=== PATIENT | male | born 1950 | race Caucasian/White ===

== ENCOUNTER 2019-03-24 09:53 | Outpatient (CLI) | payer MEDICARE, SELFPAY ==
--- NOTE | 2019-03-24 14:59 | HP ---
HISTORY OF PRESENT ILLNESS: Mr. Gavino Carroll is a very pleasant 69-year-old gentleman, who presents to the [facility]ound Center for evaluation of an ulceration of the plantar surface of the left midfoot. The patient states that the wound began in July of this year as a "slit." He states that he "pulled skin off" resulting in a deepening of the wound. The patient states that the wound subsequently began draining and enlarging in a progressive fashion. The patient states that treatment for the ulceration of the plantar surface of the left midfoot has included Epsom salt soaks cleaning with alcohol, Neosporin, and triple antibiotic ointment. The patient states that he has been covering the ulceration with a large Band-Aid followed by his sock. The patient was referred to the Wound Center by Chhaya Macedo PA-C on 03/17/2019. The patient's medical history significant for Charcot arthropathy for the past 15 years. PAST MEDICAL HISTORY: 1. Diabetes mellitus. 2. Hypertension. 3. Coronary artery disease. 4. Charcot arthropathy. PAST SURGICAL HISTORY: Negative. MEDICATIONS: 1. Glipizide. 2. Metformin. 3. Furosemide. 4. Atenolol. 5. Lovastatin. 6. Aspirin. ALLERGIES: NO KNOWN DIAGNOSED ALLERGIES. SOCIAL HISTORY: Social history is significant for tobacco use of 1/2 pack of cigarettes per day for 20 years. The patient states that he stopped smoking at age 45. The patient admits to the consumption up to 6 drinks per day since age 20. FAMILY HISTORY: Family history is significant for diabetes mellitus. The patient states that his mother and brother were both diagnosed with diabetes mellitus. Family history is also significant for coronary artery disease. The patient states that his father and brother were both diagnosed with coronary artery disease. REVIEW OF SYSTEMS: The patient states that he has been seen by his primary care provider for approximately 2-1/2 months for his left midfoot plantar ulceration. PHYSICAL EXAMINATION: VITAL SIGNS: Temperature 97.6, pulse 62, respirations 20, and blood pressure 182/90. Accu-Chek 127. GENERAL: A 69-year-old gentleman, lying on stretcher in examination room, in no acute distress. HEENT: Normocephalic and atraumatic. NECK: No nuchal rigidity. CHEST: Clear to auscultation. CV: Regular rate and rhythm. ABDOMEN: Soft. EXTREMITIES: An ulceration of the plantar surface of the left midfoot is present, which measures approximately 2.4 x 2.8 cm. Granulation tissue is present within the wound margins. Necrotic and nonviable tissue present within the wound margins was debrided with an excisional full-thickness debridement. Callus desiccated tissue and undermining at the periphery of the wound were eliminated with the use of scissors. No purulent drainage is associated with the wound. No erythema of the skin surrounding the wound is present. No maceration of the skin of the periwound is noted. A dorsalis pedis pulse is palpable on the left. NEUROLOGIC: Grossly nonfocal. ASSESSMENT AND PLAN: 1. 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 Dressing changes of Medihoney alginate will be initiated today. These dressing changes are to be performed on a daily basis after cleansing and irrigation. Arrangements will be made for the home delivery of dressing supplies. No antibiotics will be prescribed today based upon the appearance of the wound. I will see Mr. Carroll again in 1 to 2 weeks. The patient understands and is in agreement with the preceding treatment plan. 2. Diabetes mellitus. The patient's Accu-Chek in clinic today is 127. The patient has been told that for optimal wound healing, his blood glucoses should remain below 150. 3. Hypertension. 4. Coronary artery disease. Job ID: [id number]
== END 2019-03-24 09:54 | disposition home or self-care (01) ==
LOC: WCC 09:53
PROVIDERS: ATTEND Family Medicine
DX: E11.621 Type 2 diabetes mellitus with foot ulcer (principal); L97.429 Non-pressure chronic ulcer of left heel and midfoot with unspecified severity; I10 Essential (primary) hypertension; I25.10 Atherosclerotic heart disease of native coronary artery without angina pectoris; E11.40 Type 2 diabetes mellitus with diabetic neuropathy, unspecified

== ENCOUNTER 2019-04-07 14:17 | Outpatient (CLI) | payer MEDICARE ==
--- NOTE | 2019-04-07 10:16 | PRG ---
DATE OF SERVICE: 04/07/2019 HISTORY: Mr. Gavino Carroll is a very pleasant 69-year-old gentleman who presents to the Wound Center for evaluation of an ulceration of the plantar surface of the left midfoot. The patient previously stated that the wound began in July of this year as a "slit." He stated that he "pulled skin off" resulting in a deepening of the wound. He stated that the wound subsequently began draining and enlarging in a progressive fashion. The patient stated that treatment for the ulceration of the plantar surface of the left midfoot has included Epsom salt soaks, cleansing with alcohol, Neosporin, and triple antibiotic ointment. The patient stated that he prior to being seen in the Wound Center had been covering the ulceration with a large Band-Aid followed by his sock. The patient was referred to the Wound Center by Chhaya Macedo PA-C on 03/17/2019. The patient's medical history is significant for Charcot arthropathy for the past 15 years. PHYSICAL EXAMINATION: VITAL SIGNS: Temperature 97.6, pulse 51, respirations 20, blood pressure 185/77. Accu-Chek 143. EXTREMITIES: An ulceration of the plantar surface of the left mid foot is present, which measures approximately 2.8 x 2.1 cm. The dimensions of the wound at the time of the patient's last visit were approximately 2.4 x 2.8 cm. Granulation tissue is present within the wound margins. Necrotic and nonviable tissue present within the wound margins was debrided with an excisional full-thickness debridement with the use of a curette. Callus desiccated tissue and undermining at the periphery of the wound were eliminated with the use of scissors. Post debridement measurements were approximately 2.7 x 3.2 cm. No purulent drainage is associated with the wound. No erythema of the skin surrounding the wound is present. No maceration of the skin of the periwound is noted. A dorsalis pedis pulse is palpable on the left. ASSESSMENT AND PLAN: 1. 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 Dressing changes of Medihoney alginate will be continued on a daily basis after cleansing and irrigation. Arrangements were previously made for the home delivery of dressing supplies. I will see Mr. Carroll again in 2 weeks. The importance of offloading and achieving the healing of the ulceration has again been discussed with Mr. Carroll. 2. Diabetes mellitus. The patient's Accu-Chek in clinic today is 143. The patient has been reminded that for optimal wound healing, his blood glucoses should remain below 150. 3. Hypertension. 4. Coronary artery disease. Job ID: [id number]
[2019-04-07] MEDS ORDERED: Sodium Chloride 0.9% 15 ML NEB ONE (18:21)
== END 2019-04-07 14:18 | disposition home or self-care (01) ==
LOC: WCC 14:17
PROVIDERS: ATTEND Family Medicine
DX: E11.621 Type 2 diabetes mellitus with foot ulcer (principal); E11.40 Type 2 diabetes mellitus with diabetic neuropathy, unspecified; L97.429 Non-pressure chronic ulcer of left heel and midfoot with unspecified severity; I10 Essential (primary) hypertension; I25.10 Atherosclerotic heart disease of native coronary artery without angina pectoris
CPT/HCPCS: 11042; A4218

== ENCOUNTER 2019-04-23 08:42 | Outpatient (CLI) | payer MEDICARE ==
[2019-04-23] MEDS ORDERED: Sodium Chloride 0.9% 15 ML NEB ONE (09:00)
[2019-04-23] MEDS ORDERED: Lidocaine 2% PF 100 mg/5 ml Syringe ONE (09:00)
--- NOTE | 2019-04-23 09:51 | PRG ---
DATE OF SERVICE: 04/23/2019 HISTORY: Mr. Gavino Carroll is a very pleasant 69-year-old gentleman, who presents to the Wound Center for evaluation of an ulceration of the plantar surface of the left midfoot. The patient previously stated that the wound began in July of this year as a "slit." He stated that he "pulled skin off" resulting in a deepening of the wound. He stated that the wound subsequently began draining and enlarging in a progressive fashion. The patient stated that treatment for the ulceration of the plantar surface of the left midfoot has included Epsom salt soaks, cleansing with alcohol, Neosporin, and triple antibiotic ointment. The patient stated that prior to being seen in the Wound Center, he had been covering the ulceration with a large Band-Aid followed by his sock. The patient was referred to the Wound Center by Chhaya Macedo PA-C, on 03/17/2019. The patient's medical history significant for Charcot arthropathy for the past 15 years. PHYSICAL EXAMINATION: VITAL SIGNS: Temperature 97.5, pulse 52, respirations 19, and blood pressure 205/86. Accu-Chek 102. EXTREMITIES: An ulceration of the plantar surface of the left midfoot is present, which measures approximately 3.0 x 2.0 cm. The dimensions of the wound at the time of the patient's last visit were approximately 2.8 x 2.1 cm. A sample of granulation tissue within the wound margins was excised with the use of scissors and sent for aerobic and anaerobic cultures. Necrotic and nonviable tissue present within the wound margins was debrided with an excisional full-thickness debridement with the use of scissors. Callus desiccated tissue and undermining at the periphery of the wound were also eliminated with the use of scissors. No purulent drainage is associated with the wound. Slight erythema of the skin surrounding the wound is present. No maceration of the skin of the periwound is noted. No significant edema of the left foot is appreciated on exam today. ASSESSMENT AND PLAN: 1. 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 Dressing changes of Medihoney are to be performed on a daily basis after cleansing and irrigation. I will see Mr. Carroll again in 1 week. The importance of offloading in achieving the healing of the ulceration has again been discussed with Mr. Carroll. He states he will begin utilizing a knee scooter. Arrangements will also be made for the initiation of negative pressure therapy with dressing changes of the wound VAC 3 times per week with the assistance of Home Health. At the time of the patient's followup visit in 1 week, consideration will be given to treatment with a skin substitute. Antibiotic therapy will also be initiated if warranted based upon the results of the tissue cultures obtained today, imaging of the left foot will also be obtained to look for findings suggestive of osteomyelitis. 2. Diabetes mellitus. The patient's Accu-Chek in clinic today is 102. The patient has been reminded that for optimal wound healing his blood glucoses should remain below 150. 3. Hypertension. 4. Coronary artery disease. Job ID: [id number]
== END 2019-04-23 08:43 | disposition home or self-care (01) ==
LOC: WCC 08:42
PROVIDERS: ATTEND Family Medicine
DX: E11.621 Type 2 diabetes mellitus with foot ulcer (principal); L97.429 Non-pressure chronic ulcer of left heel and midfoot with unspecified severity; I25.10 Atherosclerotic heart disease of native coronary artery without angina pectoris; I10 Essential (primary) hypertension
CPT/HCPCS: 11042; 87070; 87077; 87186; 87205; 93923

== ENCOUNTER 2019-04-29 12:12 | Outpatient (CLI) | payer MEDICARE ==
--- NOTE | 2019-04-29 16:08 | MRI ---
MR OF THE LEFT FOOT WITHOUT CONTRAST: 04/29/19 INDICATION: Type II diabetes with neuropathy and a large plantar based ulceration. FINDINGS: There is a large plantar based ulceration underlying the midfoot measuring approximately 5.2 x 3.6 cm in its greatest AP and mediolateral dimensions respectively. This ulceration does contact the planta r surface of the cuboid where there is cortical osteolysis and abnormal marrow signal intensity invol ving the cuboid consistent with changes of osteomyelitis. There is neuropathic osteoarthropathy invol ving the midfoot with prominent destructive changes involving the joint. There is fragmentation invol ving the medial and lateral cuneiform likely related to infection. There is abnormal marrow signal i ntensity involving portions of the inferior displaced lateral and middle cuneiforms. There is diffuse muscle atrophy and abnormal increased T2 signal involving the intrinsic musculature likely related t o denervation. No large drainage fluid collection is evident. IMPRESSION: 1. Large plantar based ulceration underlying the midfoot with osteomyelitis involving the cuboid , lateral and middle cuneiforms. 2. 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 3. Prominent denervation changes involving the intrinsic foot musculature. POS: TPC
== END 2019-04-29 12:13 | disposition home or self-care (01) ==
LOC: BICMRI 12:12
PROVIDERS: ATTEND Family Medicine
DX: E11.621 Type 2 diabetes mellitus with foot ulcer (principal); E11.69 Type 2 diabetes mellitus with other specified complication; L97.529 Non-pressure chronic ulcer of other part of left foot with unspecified severity; M86.8X7 Other osteomyelitis, ankle and foot

== ENCOUNTER 2019-05-01 19:34 | Inpatient (IN) | payer MEDICARE ==
[~2019-05-01 19:34] MED LIST: Heparin 1,000 UNITS/ML VIAL ONE
[2019-05-01 20:20] LABS: #Basophils 0.1 thou/uL (0.0-0.2); #Eosinphils 0.3 thou/uL (0.0-0.7); #Lymphocytes 2.6 thou/uL (1.20-3.40); #Neutrophils 11.1 thou/uL (1.40-6.50); %Basophils 0.6 % (0.0-1.0); %Monocytes 6.8 % (0.0-10.0); %Neutrophils 73.6 % (42.0-75.0); Mean Corpuscular HGB CONC 33.7 g/dL (32.0-36.0); Mean Corpuscular Hemoglobin 29.1 pg (27.0-31.0); Mean Corpuscular Volume 86.3 fL (78.0-98.0); Mean Platelet Volume 7.9 fL (7.4-10.4); Platelet Count 290 thou/uL (130-400); RBC Distribution Width 13.4 % (11.5-14.5); Red Blood Cell (RBC) Count 4.82 mill/uL (4.70-6.10); White Blood Cell (WBC) Count 15.1 thou/uL (4.8-10.8)
[2019-05-01 20:40] LABS: ALT (SGPT) 13 U/L (8-55); AST (SGOT) 23 U/L (5-34); Albumin 4.1 g/dL (3.4-4.8); Alkaline Phosphatase 75 U/L (40-110); Anion Gap 15 mmol/L (10-20); BUN (Urea Nitrogen) 23 mg/dL (8.4-25.7); Bilirubin, Total 0.5 mg/dL (0.2-1.2); Calc. Creatinine Clearance 0 mL/min (70-130); Calcium 9.9 mg/dL (7.8-10.44); Carbon Dioxide 23 mmol/L (23-31); Chloride 99 mmol/L (98-107); Estimated GFR-MDRD 70; Globulin 4.2 g/dL (2.4-3.5); Glucose 139 mg/dL (80-115); Potassium 5.2 mmol/L (3.5-5.1); Protein, Total 8.3 g/dL (5.8-8.1); Sodium 132 mmol/L (136-145)
[2019-05-01] MEDS ORDERED: Piperacillin/Tazobactam 3.375 GM VIAL ONE (20:52)
[2019-05-01 21:37] LABS: Hemoglobin A1c 7.4 % (4.0-6.0)
[2019-05-01] MEDS ORDERED: Acetaminophen 325 MG TAB PO PRN (22:24)
[2019-05-01] MEDS ORDERED: Dextrose 50% Abboject 50 ML SYRINGE SLOW IVP PRN (22:24)
[2019-05-01] MEDS ORDERED: Senokot S 8.6-50 MG TAB PO PRN (22:24)
[2019-05-01] MEDS ORDERED: Dextrose 5% in Water 1,000 ML IV PRN (22:24)
[2019-05-01] MEDS ORDERED: Calcium Carbonate 500 MG ChewTAB PO PRN (22:24)
[2019-05-01] MEDS ORDERED: Vancomycin HCl 1 GM in Premix Bag 1 BAG IVPB SCH ×2 (22:30→23:15)
--- NOTE | 2019-05-01 23:06 | HP ---
PRIMARY CARE: [facility]. CHIEF COMPLAINT: Patient was sent from the wound Care due to abnormal MRI. HISTORY OF PRESENT ILLNESS: The patient is a 69-year-old male with diabetes mellitus type 2, hypertension and coronary artery disease who was referred from Wound Care Clinic due to abnormal MRI. He has left lower extremity plantar wound that has been ongoing for last 6-8 months. It is progressively gotten worse getting. He was recently evaluated by Dr. Morrow. He had a lower extremity MRI 2 days ago that was consistent with osteomyelitis involving the cuboid, lateral and middle cuneiform. He denies any fever, chills, pain, or generalized weakness. PAST MEDICAL HISTORY: 1. Diabetes mellitus type 2. 2. Hypertension. 3. Hyperlipidemia. 4. Coronary artery disease, status post [place] requiring angioplasty in 1995. PAST SURGICAL HISTORY: Cardiac catheterization. ALLERGIES: NO KNOWN DRUG ALLERGIES. CURRENT HOME MEDICATION: 1. Aspirin 325 mg daily. 2. Metformin 500 mg b.i.d. 3. Glipizide 5 mg b.i.d. 4. Lovastatin 40 mg at bedtime. 5. Lasix 20 mg daily. 6. Atenolol/chlorthalidone 1 tab daily. SOCIAL HISTORY: The patient currently lives at home. He drinks alcohol socially. Denies any smoking or drug use. He is full code. Makes his own decision with the help of his family. His recently . FAMILY HISTORY: Negative for premature coronary artery disease. REVIEW OF SYSTEMS: All other review of systems were reviewed and were found negative. PHYSICAL EXAMINATION: VITAL SIGNS: Temperature 98, respiration of 16, pulse of 56, blood pressure of 140/71 with O2 saturation 96% on room air. GENERAL: A 69-year-old male in no apparent distress. HEENT: Head, atraumatic and normocephalic. Sclerae anicteric. Moist mucous membranes. No oral lesion. NECK: Supple. No JVD appreciated. No carotid bruit. LUNGS: Clear to auscultation bilaterally. No wheezing, rales, or rhonchi. HEART: S1 and S2 present. Regular rate and rhythm. Bradycardic. No rubs or gallops. ABDOMEN: Soft, nontender. Bowel sounds present. EXTREMITIES: There is approximately 4 x 6 cm and 1 inch in depth without any drainage or necrosis. There is diminished sensation without any pain or drainage. NEUROLOGIC: Grossly nonfocal. Moves all 4 extremities. PSYCHIATRY: Alert, awake and oriented x3. SKIN: As discussed above. LYMPH NODES: No palpable lymph nodes in the neck. EXTREMITIES: Peripheral vascular, radial pulses palpable bilaterally. Dorsalis pedis pulses were palpable on the left. LABORATORY FINDINGS: MRI of the left foot by my review as discussed above. WBC 15.1 with hemoglobin 14, hematocrit 41.6 with a platelet of 290. Chemistry showed sodium of 132, potassium 5.2, chloride 99, bicarb 23, BUN 23, creatinine 1.05, glucose of 139. Hemoglobin A1c 7.4. CRP 2.03. IMAGING: EKG by my review showed sinus bradycardia with first-degree AV block with a heart rate of 56 with left axis deviation. IMPRESSION: 1. Left foot diabetic infection with osteomyelitis. 2. Diabetes mellitus type 2 with diabetic neuropathy. 3. Charcot deformity in the left foot. 4. Coronary artery disease status post myocardial infarction with no recent cardiac followup. 5. Hypertension. 6. Chronic kidney disease, stage 2. 7. Hyponatremia. 8. Sinus bradycardia, probably secondary to beta blockers. PLAN: The patient will be monitored on the medical floor. We will continue empiric antibiotics. We will consult General Surgery as well as Infectious Disease. We will reduce atenolol dosing. We will hold metformin for now. We will keep him n.p.o. past midnight. Gentle IV hydration. Insulin sliding scale. Consult Wound Care. Plan of care was discussed with the patient and the family in detail, they stated understanding. Job ID: [id number]
[2019-05-01] MEDS: Sodium Chloride 0.9% 1,000 ML IV SCH (23:09)
[2019-05-02] MEDS: Piperacillin/Tazobactam 3.375 GM in Sodium Chloride 0.9% 100 ML IVPB SCH ×4 (02:35→20:51)
[2019-05-02 05:41] LABS: #Basophils 0.1 thou/uL (0.0-0.2); #Eosinphils 0.3 thou/uL (0.0-0.7); #Lymphocytes 1.7 thou/uL (1.20-3.40); #Monocytes 0.9 thou/uL (0.11-0.59); #Neutrophils 9.1 thou/uL (1.40-6.50); %Basophils 0.7 % (0.0-1.0); %Eosinophils 2.7 % (0.0-10.0); %Monocytes 7.7 % (0.0-10.0); %Neutrophils 74.9 % (42.0-75.0); Hemoglobin 13.5 g/dL (14.0-18.0); Mean Corpuscular HGB CONC 33.7 g/dL (32.0-36.0); Mean Corpuscular Volume 86.1 fL (78.0-98.0); Mean Platelet Volume 7.7 fL (7.4-10.4); Platelet Count 258 thou/uL (130-400); RBC Distribution Width 13.3 % (11.5-14.5); Red Blood Cell (RBC) Count 4.64 mill/uL (4.70-6.10); White Blood Cell (WBC) Count 12.2 thou/uL (4.8-10.8)
[2019-05-02 05:48] LABS: Prothrombin Time 13.3 SEC (12.0-14.7)
[2019-05-02 06:13] LABS: ALT (SGPT) 13 U/L (8-55); AST (SGOT) 10 U/L (5-34); Albumin 3.6 g/dL (3.4-4.8); Alkaline Phosphatase 68 U/L (40-110); Anion Gap 14 mmol/L (10-20); BUN (Urea Nitrogen) 20 mg/dL (8.4-25.7); Bilirubin, Total 0.6 mg/dL (0.2-1.2); Calc. Creatinine Clearance 113 mL/min (70-130); Calcium 9.4 mg/dL (7.8-10.44); Carbon Dioxide 25 mmol/L (23-31); Chloride 101 mmol/L (98-107); Estimated GFR-MDRD 82; Globulin 3.3 g/dL (2.4-3.5); Glucose 158 mg/dL (80-115); Magnesium 1.8 mg/dL (1.6-2.6); Phosphorus 3.2 mg/dL (2.3-4.7); Potassium 3.7 mmol/L (3.5-5.1); Protein, Total 6.9 g/dL (5.8-8.1); Sodium 136 mmol/L (136-145)
[2019-05-02] MEDS: Aspirin 325 mg Enteric Coated Tablet PO SCH (09:04)
[2019-05-02] MEDS: Saccharomyces boulardii 250 MG CAP PO SCH (09:04)
[2019-05-02] MEDS: Atenolol 25 MG TAB PO SCH ×2 (09:05→20:48)
--- NOTE | 2019-05-02 12:16 | ULT ---
ULTRASOUND DOPPLER DUPLEX ARTERIAL LEFT LOWER EXTREMITY: 05/02/2019 HISTORY: Non-healing left plantar foot wound in a 69-year-old male. TECHNIQUE: Thurman-scale, color-flow and spectral analysis of the major arteries of the left lower extremity. FINDINGS: Calcified atherosclerotic plaque visualized in all arteries, of a moderate degree. The largest focal calcified atheromatous plaque is at the mid level of the superficial femoral artery. The highest peak systolic velocities in cm/s followed by pulsed Doppler waveforms: Common femoral: 160, biphasic Profunda femoral: 140, biphasic Superficial femoral, proximal: 110, biphasic Superficial femoral, mid: 160, biphasic Superficial femoral, distal: 95, biphasic Popliteal: 45, monophasic Anterior tibial: 55, monophasic Posterior tibial: 110, monophasic Dorsalis pedis: 85, monophasic. IMPRESSION: 1. Significant atherosclerotic disease throughout all major arteries of the left lower extremity. 2. Evidence for high grade arterial occlusive disease, with monophasic wave-forms in all arteries fro m knee to ankle. POS: TPC
[2019-05-02] MEDS: Vancomycin HCl 1.5 GM in Sodium Chloride 0.9% 250 ML 300 ML IVPB SCH ×2 (12:32→21:51)
--- NOTE | 2019-05-02 13:25 | PDOC.HOSPP ---
- Subjective Encounter Date: 05/02/19 Encounter Time: 13:23 Subjective: 69 y/o male with DM, HTN, MISSY admitted with non healing left plantar wound and osteomyelitis noted on MRI. No fever, pain or chills. - Objective Vital Signs & Weight: Vital Signs (12 hours) Temp Pulse Resp BP BP Pulse Ox 05/02/19 12:43 97.6 F 54 L 12 151/79 H 95 05/02/19 09:05 52 L 157/77 H 05/02/19 08:01 98.2 F 52 L 12 157/77 H 94 L 05/02/19 05:21 98.1 F 51 L 18 156/81 H 94 L Weight Weight 226 lb 1.6 oz Result Diagrams: 05/02/19 05:28 05/02/19 05:28 Additional Labs: Accuchecks 05/02/19 05/02/19 12:46 05:02 POC Glucose 148 H 161 H Hospitalist ROS - Medication Medications: Active Medications Generic Name Dose Route Start Last Admin Trade Name Freq PRN Reason Stop Dose Admin Aspirin 325 mg 05/02/19 09:00 05/02/19 09:04 Ecotrin PO 325 mg DAILY DEWAYNE Administration Atenolol 25 mg 05/02/19 09:00 05/02/19 09:05 Tenormin PO Not Given BID DEWAYNE Sodium Chloride 1,000 mls @ 50 mls/hr 05/01/19 23:00 05/01/19 23:09 Normal Saline 0.9% IV 1,000 mls .Q20H DEWAYNE Administration Piperacillin Sod/Tazobactam 100 mls @ 200 mls/hr 05/02/19 03:00 05/02/19 09: 04 Sod 3.375 gm/ Sodium Chloride IVPB 100 mls 0300,0900,1500,2100 DEWAYNE Administration Vancomycin HCl 1.5 gm/ Sodium 300 mls @ 200 mls/hr 05/02/19 10:00 05/02/19 12 :32 Chloride IVPB 300 mls 1000,2200 DEWAYNE Administration Saccharomyces Boulardii 250 mg 05/02/19 09:00 05/02/19 09:04 Florastor PO 250 mg DAILY DEWAYNE Administration - Exam General Appearance: awake alert General - other findings: obese Eye: PERRL, anicteric sclera ENT: normocephalic atraumatic, moist mucosa Neck: supple, symmetric, no JVD Heart: RRR, murmur present Respiratory: no wheezes, no rales, no ronchi Gastrointestinal: soft, non-tender, non-distended, normal bowel sounds Extremities: no cyanosis, no edema Extremities - other findings: Left foot covered with dressing. No erythema. Left charcort foot deformity Neurological: cranial nerve grossly intact, no focal deficits, speech deficit Psychiatric: normal affect, A&O x 3 Hosp A/P (1) Osteomyelitis of left foot Code(s): M86.9 - OSTEOMYELITIS, UNSPECIFIED Status: Acute (2) Non-healing ulcer of left foot Code(s): L97.529 - NON-PRESSURE CHRONIC ULCER OTH PRT LEFT FOOT W UNSP SEVERITY Status: Acute (3) Diabetes mellitus Code(s): E11.9 - TYPE 2 DIABETES MELLITUS WITHOUT COMPLICATIONS Status: Acute (4) HTN (hypertension) Code(s): I10 - ESSENTIAL (PRIMARY) HYPERTENSION Status: Acute (5) Hyponatremia Code(s): E87.1 - HYPO-OSMOLALITY AND HYPONATREMIA Status: Acute (6) Hyperkalemia Code(s): E87.5 - HYPERKALEMIA Status: Acute (7) 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 Code(s): E11.610 - TYPE 2 DIABETES MELLITUS W DIABETIC NEUROPATHIC ARTHROPATHY Status: Acute (8) Bradycardia Code(s): R00.1 - BRADYCARDIA, UNSPECIFIED Status: Acute - Plan Continue broadspectrum antibiotics. Get arterial doppler of left lower extremity Continue antiglycemic therapy Awaiting podiatry input Add amlodipine to reduced dose pf atenolol Hold losartan due to possiblity of contrast studies DVT prophylaxis with lovenox.
[2019-05-02] MEDS ORDERED: Amlodipine 10 MG TAB PO SCH (13:45)
[2019-05-02] MEDS ORDERED: Enoxaparin Sodium 40 MG/0.4 ML SYRINGE SC SCH (13:45)
--- NOTE | 2019-05-02 14:34 | CON ---
DATE OF CONSULTATION: HISTORY OF PRESENT ILLNESS: Gavino Carroll is a 69-year-old male, diabetic, noninsulin dependent with a neuropathic ulcer, left proximal foot medially. This is in the proximal arch area. He has been seeing Wound Care regarding this for some time. He has seen Dr. Morrow in [facility]ound [facility]. On occasion, he has seen a roustabout, who ordered a protective boot for his foot. Arrangements have been made for home health nursing and wound VAC arrangements initiated. He has been to this hospitalization after he was sent for an MRI, which he had performed 04/29/2019. This revealed osteomyelitis involving the cuboid, lateral, and middle cuneiforms. I personally inspected the neuropathic ulcer in his foot, debrided some slight amount of surface necrotic tissue and callus, but there is no communication or evidence of cellulitis or purulent drainage to communicate with the involved bones with osteomyelitis. I would recommend local wound care. Weightbear as tolerated. Wound VAC care. Protective boot has already being acquired. I have ordered an orthotic shoe to wear in the hospital to accommodate his dressings. He should have intravenous antibiotics outpatient arranged. Infectious Diseases should be consulted for this. At this point, I will see him as needed in this hospitalization, you should please call if I can be of further services. He will need outpatient intravenous antibiotic arrangements by Infectious Disease and I will see him in my office in 3 to 4 weeks. ALLERGIES: NONE. HABITS: Tobacco, none for 30 to 35 years. Alcohol, none. MEDICATIONS: 1. Aspirin. 2. Metformin. 3. Glipizide. 4. Lovastatin. 5. Furosemide. 6. Atenolol. 7. Chlorthalidone. PAST MEDICAL HISTORY: Diabetes mellitus, mild obesity, hypertension, hyperlipidemia, coronary artery disease status post [place], and recurrent angioplasty in 1995, although he tells me his coronary arteries were normal. PAST SURGICAL HISTORY: Cardiac catheterization. SOCIAL HISTORY: The patient lives at home. Makes his own decisions. Ambulates independently. PHYSICAL EXAMINATION: VITAL SIGNS: 5 foot 10 inches, 226 pounds, 32 BMI. 98.2, 52, 157/77, and respiratory rate 12. HEAD, EYES, EARS, NOSE, AND THROAT: Unremarkable. LUNGS: Clear to auscultation. CARDIAC: Regular rate and rhythm without murmur or gallop. ABDOMEN: Soft and nontender. No masses. Small umbilical hernia. EXTREMITIES: Palpable femoral popliteal and dorsalis pedis pulses both feet. Left foot reveals a medial proximal arch ulceration about 3 cm in diameter and 2 cm deep with healthy granulation tissue, probing reveals absence of any sinus tracts. Debridement of the surrounding callus and slough and necrotic tissue. Does not reveal any deep sinuses or communication to the bones involved osteomyelitis. There is no evidence of infection. No cellulitis evident. LABORATORY DATA: White count 12 and hemoglobin 13. Basic metabolic profile normal. BUN and creatinine of 20 and 0.92. ASSESSMENT AND PLAN: 1. Diabetic neuropathic ulcer, left foot. He has palpable pulses. There are no evidence of PAD. We would recommend local wound care. Consulting Case Management and Wound Care to place a wound VAC and arrange the outpatient wound care. Initiation of outpatient home health nursing [facility] has been initiated prior to this hospitalization. He should have a wound VAC placed and have outpatient wound care and he can see me in office in 3 to 4 weeks. He has seen a roustabout, he can follow up with the roustabout. He will need Infectious Diseases to see him regarding the osteomyelitis and the intravenous antibiotics arranged as an outpatient. 2. Diabetes mellitus. 3. Mild obesity. 4. No history of PAD. Job ID: [id number]
[2019-05-02] MEDS ORDERED: Atorvastatin Calcium 10 MG TAB PO SCH (17:00)
[2019-05-02] MEDS: Insulin Regular 300 UNITS/3 ML VIAL SC PRN (18:12)
[2019-05-03] MEDS: Piperacillin/Tazobactam 3.375 GM in Sodium Chloride 0.9% 100 ML IVPB SCH ×4 (02:47→20:32)
[2019-05-03] MEDS: Atenolol 25 MG TAB PO SCH (08:07)
[2019-05-03] MEDS: Aspirin 325 mg Enteric Coated Tablet PO SCH (08:08)
[2019-05-03] MEDS: Amlodipine 10 MG TAB PO SCH (08:08)
[2019-05-03] MEDS: Saccharomyces boulardii 250 MG CAP PO SCH (08:08)
[2019-05-03] MEDS: Enoxaparin Sodium 40 MG/0.4 ML SYRINGE SC SCH (08:10)
[2019-05-03] MEDS: Insulin Regular 300 UNITS/3 ML VIAL SC PRN ×2 (08:17→16:01)
[2019-05-03 09:49] LABS: Vancomycin, Trough 13.9 ug/mL
[2019-05-03] MEDS: Lisinopril 20 MG TAB PO SCH (10:25)
[2019-05-03] MEDS: Vancomycin HCl 1.5 GM in Sodium Chloride 0.9% 250 ML 300 ML IVPB SCH (10:31)
--- NOTE | 2019-05-03 13:05 | PDOC.HOSPP ---
- Subjective Encounter Date: 05/03/19 Encounter Time: 11:17 Subjective: 69 y/o male with DM, HTN, CAD admitted with non healing left plantar wound and osteomyelitis noted on MRI. No fever, pain or chills.recent culture grew MRSA and anaerobes. No new complaint. S/p bedside devridement by Surgery. Now has wound vac in place - Objective Vital Signs & Weight: Vital Signs (12 hours) Temp Pulse Resp BP BP Pulse Ox 05/03/19 11:00 98.3 F 52 L 20 154/76 H 93 L 05/03/19 10:25 161/67 H 05/03/19 08:08 52 L 161/67 H 05/03/19 08:07 52 L 161/67 H 05/03/19 08:00 96 05/03/19 07:33 97.5 F L 52 L 16 161/67 H 94 L 05/03/19 04:00 97.9 F 53 L 16 149/78 H 94 L Weight Admit Weight 226 lb 1.6 oz Weight 226 lb 1.6 oz Result Diagrams: 05/02/19 05:28 05/02/19 05:28 Additional Labs: Accuchecks 05/03/19 05/03/19 05/03/19 11:45 05:34 00:16 POC Glucose 212 H 163 H 166 H 05/02/19 05/02/19 20:41 17:56 POC Glucose 207 H 196 H Hospitalist ROS - Medication Medications: Active Medications Generic Name Dose Route Start Last Admin Trade Name Freq PRN Reason Stop Dose Admin Amlodipine Besylate 10 mg 05/03/19 09:00 05/03/19 08:08 Norvasc PO 10 mg DAILY DEWAYNE Administration Aspirin 325 mg 05/02/19 09:00 05/03/19 08:08 Ecotrin PO 325 mg DAILY DEWAYNE Administration Atenolol 25 mg 05/02/19 09:00 05/03/19 08:07 Tenormin PO Not Given BID DEWAYNE Enoxaparin Sodium 40 mg 05/03/19 09:00 05/03/19 08:10 Lovenox SC 40 mg 0900 DEWAYNE Administration Piperacillin Sod/Tazobactam 100 mls @ 200 mls/hr 05/02/19 03:00 05/03/19 08: 09 Sod 3.375 gm/ Sodium Chloride IVPB 100 mls 0300,0900,1500,2100 DEWAYNE Administration Insulin Human Regular 0 units 05/01/19 22:24 05/03/19 08:17 Humulin R SC 2 unit .MILD SLIDING SCALE PRN Administration Mild Correctional Scale Lisinopril 20 mg 05/03/19 09:00 05/03/19 10:25 Zestril PO 20 mg DAILY DEWAYNE Administration Saccharomyces Boulardii 250 mg 05/02/19 09:00 05/03/19 08:08 Florastor PO 250 mg DAILY DEWAYNE Administration Sodium Chloride 10 ml 05/01/19 22:24 05/03/19 10:32 Flush - Normal Saline IVF 10 ml PRN PRN Administration Saline Flush - Exam General Appearance: awake alert Eye: PERRL, anicteric sclera ENT: normocephalic atraumatic Neck: symmetric, no JVD Heart: RRR Respiratory: no wheezes, no ronchi, normal chest expansion Gastrointestinal: soft, non-tender, non-distended, normal bowel sounds Gastrointestinal - other findings: obese Extremities: no cyanosis, no edema Extremities - other findings: Left foot dreesing/wound vac noted Neurological: cranial nerve grossly intact, no focal deficits Psychiatric: normal affect, A&O x 3 Hosp A/P (1) Osteomyelitis of left foot Code(s): M86.9 - OSTEOMYELITIS, UNSPECIFIED Status: Acute (2) Non-healing ulcer of left foot Code(s): L97.529 - NON-PRESSURE CHRONIC ULCER OTH PRT LEFT FOOT W UNSP SEVERITY Status: Acute (3) Diabetes mellitus Code(s): E11.9 - TYPE 2 DIABETES MELLITUS WITHOUT COMPLICATIONS Status: Acute (4) HTN (hypertension) Code(s): I10 - ESSENTIAL (PRIMARY) HYPERTENSION Status: Acute (5) Hyponatremia Code(s): E87.1 - HYPO-OSMOLALITY AND HYPONATREMIA Status: Acute (6) Hyperkalemia Code(s): E87.5 - HYPERKALEMIA Status: Acute (7) 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 Code(s): E11.610 - TYPE 2 DIABETES MELLITUS W DIABETIC NEUROPATHIC ARTHROPATHY Status: Acute (8) Bradycardia Code(s): R00.1 - BRADYCARDIA, UNSPECIFIED Status: Acute (9) PAD (peripheral artery disease) Code(s): I73.9 - PERIPHERAL VASCULAR DISEASE, UNSPECIFIED Status: Acute - Plan Continue broad spectrum antibiotics. Continue hypoglycemic therapy Ass lisinopril to amlodipine and atenolol increase Liptor to 40 daily Consult vasvular surgery to possible re vascularization Start ASA Await echo DVT prophylaxis with lovenox. Place picc line for home antibiotic. will discharge patient on IV vanc and invanz and have patient follow up with ID.
[2019-05-03] MEDS ORDERED: Atorvastatin Calcium 40 MG TAB PO SCH (17:00)
[2019-05-03] MEDS: Sodium Chloride 0.9% 1,000 ML IV SCH (17:55)
[2019-05-03] MEDS: Atorvastatin Calcium 40 MG TAB PO SCH (20:33)
[2019-05-03] MEDS: Vancomycin HCl 1.75 GM in Sodium Chloride 0.9% 500 ML IVPB SCH (21:08)
--- NOTE | 2019-05-03 22:09 | CON ---
DATE OF CONSULTATION: 05/03/2019 CHIEF COMPLAINT: Nonhealing foot wound REQUESTING PHYSICIAN: Lea Navarrete Obi, MD PRIMARY CARE PHYSICIAN: Chhaya Macedo PA-C HISTORY OF PRESENT ILLNESS: The patient is a 69-year-old diabetic man, who has had a wound on the proximal left foot laterally extending around on the plantar aspect that currently has a wound VAC in place. This wound has been there for several months. Local wound care has been performed and MRI was recently done, which suggested osteomyelitis involving the cuboid, the middle cuneiform, and lateral cuneiform. Per Dr. Payne's note, after debridement of some surface callus and necrotic tissue, there is no apparent tracking down to bone. The patient says it is not particularly painful and he is still able to bear weight and walk. PAST MEDICAL HISTORY: Significant for coronary artery disease, having undergone an angioplasty in 1995. He has long-standing history of diabetes mellitus, hypertension, hyperlipidemia. He has about a 15 year history of a Charcot deformity of the left foot, which is his involved foot. MEDICATIONS: His home medications are; 1. Metformin 500 mg b.i.d. 2. Glipizide 5 mg b.i.d. 3. Lovastatin 40 mg at bedtime. 4. Aspirin 325 mg a day. 5. Lasix 20 mg a day. 6. Atenolol/chlorthalidone 1 tablet a day with the atenolol component being 100 mg and the chlorthalidone 25 mg. Current medications are; 1. Aspirin. 2. Atenolol 25 mg b.i.d. 3. Norvasc 10 mg a day. 4. Lipitor 40 mg a day. 5. Insulin sliding scale. 6. Lisinopril 20 mg a day. 7. Zosyn. 8. Vancomycin. ALLERGIES: HE DENIES ANY MEDICAL ALLERGIES. SOCIAL HISTORY: He has not smoked in many years. FAMILY HISTORY: Significant for a brother who recently related to heart problems. REVIEW OF SYSTEMS: Negative for any eye, speech, facial, or extremity symptoms consistent with TIAs. Negative for any chest pain, shortness of breath, any palpitations. It is positive for some paresthetic sensations in his feet. PHYSICAL EXAMINATION: GENERAL: His height is 5 feet 10 inches, weight is 226 pounds, heart rate is in the mid 40s to mid 50s, blood pressure 114/62, temperature is 97.8, T-max this hospitalization has been 98.3. HEENT: He has no xanthelasma. NECK: No JVD. Bilateral carotid bruits. CHEST: Clear to auscultation. HEART: He has a regular bradycardic rhythm. ABDOMEN: Obese, soft, and nontender. EXTREMITIES: He has palpable radial and femoral pulses. I was not able to palpate popliteal pulses or pedal pulses. Capillary refill in his toes is 1 second or less. He has a rocker bottom foot to his left foot with some modest edema both on the plantar aspect and on the dorsum. He has a wound VAC in place. NEUROLOGIC: He has some decreased sensation in his feet, but otherwise neurologic exam is grossly nonfocal. LABORATORY DATA: On laboratory exam, white count on admission was 15.1, yesterday it was 12.2, hemoglobin is 14.0, platelets 290,000. PT 13.3 and INR 1.0, PTT 35.0. Sodium is 132, potassium 5.2, chloride 99, CO2 23, glucose 139, BUN 23, creatinine 1.05. Hemoglobin A1c was 7.4, calcium 9.9. LFTs were normal. Albumin 4.3. His court monitor upon arrival on telemetry (as I was coming to see him, he was coming down the elevator being transferred because of heart rates in the 40s) appears to have a sinus bradycardia. His MRI is as described above. Blood cultures have been no growth so far. His vascular ultrasound describes calcified vasculature diffusely with most focal disease being in the mid SFA at the popliteal level and down. Waveforms are monophasic. His echocardiogram describes an LVEF of around 45% to 50% with mild dilatation of the heart with an akinetic apex. His RV is mildly enlarged. His left atrium is moderately enlarged. His right atrium is mildly enlarged. IMPRESSION AND RECOMMENDATIONS: The patient probably does have peripheral vascular disease based on the ultrasonographic findings. It is rather suggestive of diffuse disease distally that may or may not be bypassable should that be required; however, he has no ischemic symptoms for whatever that is worth. The foot is reasonably warm and has good capillary refill. This wound is not a typical place for an ischemic ulcer and he gives a very detailed description of how he initiated this while scraping some scaly skin while sitting in the hot tub several months ago. I do not think that he is going to need vascular intervention to get this to heal. He probably ought to have diffuse vascular screening. He has asymptomatic carotid bruits, peripheral vascular disease, coronary disease, and an abdomen is way too large to be able to assess for the presence of an aneurysm, so it is probably worth screening for that as well. I will be available if necessary should his bradycardia ultimately lead to something more significant such as the need for coronary bypass surgery. It may be as simple as eliminating his beta blockers. From what I can see from the documentation, he is asymptomatic with these heart rates, and his blood pressure remains good. This may be far more distressing to the people taking care of him than it is to him. Job ID: [id number]
[2019-05-04] MEDS: Piperacillin/Tazobactam 3.375 GM in Sodium Chloride 0.9% 100 ML IVPB SCH ×4 (03:46→20:45)
[2019-05-04 05:32] LABS: #Basophils 0.1 thou/uL (0.0-0.2); #Eosinphils 0.4 thou/uL (0.0-0.7); #Lymphocytes 1.4 thou/uL (1.20-3.40); #Monocytes 1.3 thou/uL (0.11-0.59); #Neutrophils 11.2 thou/uL (1.40-6.50); %Basophils 0.5 % (0.0-1.0); %Eosinophils 2.5 % (0.0-10.0); %Lymphocytes 9.8 % (21.0-51.0); %Monocytes 9.3 % (0.0-10.0); %Neutrophils 77.9 % (42.0-75.0); Hemoglobin 12.8 g/dL (14.0-18.0); Mean Corpuscular HGB CONC 33.3 g/dL (32.0-36.0); Mean Platelet Volume 8.1 fL (7.4-10.4); Platelet Count 265 thou/uL (130-400); RBC Distribution Width 13.1 % (11.5-14.5); Red Blood Cell (RBC) Count 4.42 mill/uL (4.70-6.10); White Blood Cell (WBC) Count 14.4 thou/uL (4.8-10.8)
[2019-05-04 06:11] LABS: ALT (SGPT) 9 U/L (8-55); AST (SGOT) 12 U/L (5-34); Albumin 3.4 g/dL (3.4-4.8); Alkaline Phosphatase 67 U/L (40-110); Anion Gap 13 mmol/L (10-20); BUN (Urea Nitrogen) 30 mg/dL (8.4-25.7); Bilirubin, Total 0.7 mg/dL (0.2-1.2); CRP (Inflammatory) 1.98 mg/dL (= or < 0.5); Calc. Creatinine Clearance 44 mL/min (70-130); Carbon Dioxide 23 mmol/L (23-31); Chloride 103 mmol/L (98-107); Estimated GFR-MDRD 27; Globulin 3.2 g/dL (2.4-3.5); Glucose 228 mg/dL (80-115); Potassium 4.3 mmol/L (3.5-5.1); Protein, Total 6.6 g/dL (5.8-8.1); Sodium 135 mmol/L (136-145)
[2019-05-04] MEDS: Amlodipine 10 MG TAB PO SCH (09:18)
[2019-05-04] MEDS: Aspirin 325 mg Enteric Coated Tablet PO SCH (09:18)
[2019-05-04] MEDS: Lisinopril 20 MG TAB PO SCH (09:19)
[2019-05-04] MEDS: Enoxaparin Sodium 40 MG/0.4 ML SYRINGE SC SCH (09:19)
[2019-05-04] MEDS: Saccharomyces boulardii 250 MG CAP PO SCH (09:19)
--- NOTE | 2019-05-04 10:10 | PDOC.HOSPP ---
- Subjective Encounter Date: 05/04/19 Encounter Time: 10:07 Subjective: Asking for his oral diabetics to be restarted. - Objective Vital Signs & Weight: Vital Signs (12 hours) Temp Pulse Resp BP Pulse Ox 05/04/19 09:17 95 05/04/19 08:35 99.4 F 60 20 179/78 H 05/04/19 04:00 98.6 F 64 16 155/71 H 95 05/03/19 23:30 142/61 H Weight Admit Weight 226 lb 1.6 oz Weight 233 lb 1.6 oz I&O: 05/03/19 05/04/19 05/05/19 06:59 06:59 06:59 Intake Total 2146 Balance 2146 Result Diagrams: 05/04/19 04:25 05/04/19 04:25 Additional Labs: Accuchecks 05/04/19 05/04/19 05/03/19 05:42 00:32 20:34 POC Glucose 219 H 190 H 211 H 05/03/19 05/03/19 05/03/19 18:14 16:02 11:45 POC Glucose 199 H 245 H 212 H Hospitalist ROS - Medication Medications: Active Medications Generic Name Dose Route Start Last Admin Trade Name Fordq PRN Reason Stop Dose Admin Amlodipine Besylate 10 mg 05/03/19 09:00 05/04/19 09:18 Norvasc PO 10 mg DAILY DEWAYNE Administration Aspirin 325 mg 05/02/19 09:00 05/04/19 09:18 Ecotrin PO 325 mg DAILY DEWAYNE Administration Atorvastatin Calcium 40 mg 05/03/19 21:00 05/03/19 20:33 Lipitor PO 40 mg HS DEWAYNE Administration Enoxaparin Sodium 40 mg 05/03/19 09:00 05/04/19 09:19 Lovenox SC 40 mg 0900 DEWAYNE Administration Piperacillin Sod/Tazobactam 100 mls @ 200 mls/hr 05/02/19 03:00 05/04/19 09: 19 Sod 3.375 gm/ Sodium Chloride IVPB 100 mls 0300,0900,1500,2100 DEWAYNE Administration Vancomycin HCl 1.75 gm/ Sodium 500 mls @ 250 mls/hr 05/03/19 22:00 05/03/19 21:08 Chloride IVPB 500 mls 1000,2200 DEWAYNE Administration Insulin Human Regular 0 units 05/01/19 22:24 05/03/19 16:01 Humulin R SC 3 unit .MILD SLIDING SCALE PRN Administration Mild Correctional Scale Lisinopril 20 mg 05/03/19 09:00 05/04/19 09:19 Zestril PO 20 mg DAILY DEWAYNE Administration Saccharomyces Katiadii 250 mg 05/02/19 09:00 05/04/19 09:19 Florastor PO 250 mg DAILY DEWAYNE Administration Sodium Chloride 10 ml 05/01/19 22:24 05/04/19 09:22 Flush - Normal Saline IVF 10 ml PRN PRN Administration Saline Flush - Exam General Appearance: NAD, awake alert, ill appearing Eye: PERRL, anicteric sclera, scleral icterus ENT: normocephalic atraumatic, no oropharyngeal lesions, moist mucosa, dry oral mucosa Neck: supple, symmetric, no JVD, no thyromegaly, no lymphadenopathy, no carotid bruit, JVD Heart: RRR, no murmur, no gallops, no rubs, normal peripheral pulses, irregular , diminshed peripheral pulses, murmur present, II/IV, III/IV Respiratory: CTAB, no wheezes, no rales, no ronchi, normal chest expansion, no tachypnea, normal percussion, rales, rhonchi, tachypneic, wheezes Gastrointestinal: soft, non-tender, non-distended, normal bowel sounds, no palpable masses, no hepatomegaly, no splenomegaly, no bruit, no guarding, no rigidity, tender to palpation, distended, diminished bowl sounds, voluntary guarding Hosp A/P (1) Bradycardia Code(s): R00.1 - BRADYCARDIA, UNSPECIFIED Status: Acute (2) Diabetes mellitus Code(s): E11.9 - TYPE 2 DIABETES MELLITUS WITHOUT COMPLICATIONS Status: Acute (3) Osteomyelitis of left foot Code(s): M86.9 - OSTEOMYELITIS, UNSPECIFIED Status: Acute - Plan PICC Line, restart Glipizide, hold metformin due to renal failure.Apreciate cardiology input, no further intervention now as far as cedric cardia. D/c planning after the PICC line placement.
[2019-05-04] MEDS: Vancomycin HCl 1.75 GM in Sodium Chloride 0.9% 500 ML IVPB SCH (11:57)
[2019-05-04] MEDS: Insulin Regular 300 UNITS/3 ML VIAL SC PRN ×2 (11:57→17:42)
[2019-05-04] MEDS: glipiZIDE 5 MG TAB PO SCH (17:42)
[2019-05-04] MEDS ORDERED: cloNIDine 0.1 MG TAB PO PRN (17:47)
[2019-05-04] MEDS: hydrALAZINE 25 MG TAB PO SCH (20:44)
[2019-05-04] MEDS: Atorvastatin Calcium 40 MG TAB PO SCH (20:44)
[2019-05-04 21:27] LABS: Vancomycin, Trough 40.7 ug/mL
--- NOTE | 2019-05-05 01:06 | CON ---
DATE OF CONSULTATION: PRIMARY CARE DOCTOR: Dr. Macedo GLASS WASHER: Primary icu rn is Dr. Yuridia Sow. INFECTION DISEASE: Dr. Pelaez. CT SURGEON: Dr. Grullon. REASON FOR CARDIOLOGY CONSULT: Bradycardia, heart rates down to 30s. HISTORY OF PRESENT ILLNESS: Mr. Carroll is a 69-year-old male with significant history of diabetes, type 2; hypertension; hyperlipidemia; and coronary artery disease. Patient was transferred to the emergency department for abnormal MRI result to the left lower extremities. Patient had a left lower extremity plantar wound for last 6 to 8 months. He was consulted by Dr. Grullon. He was told patient's condition is not worse enough to undergo any surgical vascular intervention at this moment. Patient had wound VAC placement to those sites. Patient is supposed to go home with a PICC line placement and home health for continuous antibiotic at home tomorrow. However, yesterday he started to have after he , he started feeling lightheadedness. Patient's heart rate was shown around 30s. Patient was transferred to the telemetry floor. Patient's atenolol 25 mg twice a day was held since last night. Patient's heart rate has been in upper 40s to low 60s. However, according to the patient's family member, patient's heart rate in the ER at this time was 38 also. Patient was asymptomatic. Patient's vital signs at home are blood pressure 120 to 130 over 70s with heart rate low in the 60s. Patient has been on atenolol for more than 15 years which was prescribed by primary care doctor. He has not had any problem with the medicine until this admission. At this moment, patient denied any chest pain, heaviness, tightness, shortness of breath, or any cardiac complaints prior to this admission and during this admission. Patient has a history of left heart cardiac catheterization with angioplasty in 1995 in [place]. Patient had a history of diabetes, hypertension, and hyperlipidemia. Patient had echocardiogram that was done on May 03, 2019, with an EF of 45% to 50%, mild dilatation and akinetic apex, mildly enlarged right ventricle, moderately dilated left atrium, mildly ERA, and [id number] mitral valve regurgitation , mild aortic valve stenosis, and mild tricuspid regurgitation. Patient had a lower extremity ultrasound which shows significant atherosclerotic disease throughout all major arteries of left lower extremities, evidence of high-grade arterial occlusive disease with monophasic waveform in all arteries from knee to ankle. MEDICAL HISTORY: 1. Coronary artery disease. 2. Diabetes, type 2. 3. Hypertension. 4. Hyperlipidemia. PAST SURGICAL HISTORY: Cardiac catheterization with angioplasty in 1995. Wound VAC placement during this admission. Patient had a Cologuard three weeks ago which was negative. FAMILY HISTORY: Patient's brother due to cardiac arrest at the age of 78. Prior to the event, he had a history of CABG and multiple MIs. Patient's father due to the myocardial infarction. Patient's mother due to cancer. SOCIAL HISTORY: He is a . He is living by himself at this moment. He is an ex-smoker, quit in the 1995. He denies illicit drug abuse. He used to drink six packs a day until few months ago. Since then, he drinks 3 to 4 beers a week. He does not exercise. He drinks 2 cups of coffee a day. ALLERGIES: HE HAS NO KNOWN DRUG ALLERGIES. MEDICATIONS: 1. Aspirin 325 mg once a day. 2. Atenolol/chlorthalidone 100/25 one tablet once a day. 3. Lasix 20 mg once a day. 4. Lovastatin 40 mg once a day. 5. Glipizide 5 mg twice a day. 6. Metformin 500 mg twice a day. REVIEW OF SYSTEMS: 12-point review of systems negative unless otherwise mentioned in the HPI. PHYSICAL EXAMINATION: VITAL SIGNS: Blood pressure 170/73, temperature 98.5, pulse is 55 to 60s, respiratory rate 19, and O2 saturation 98% on room air. GENERAL: Patient is alert and oriented x4, not in acute distress. HEENT: Normocephalic and atraumatic. Eyes; extraocular muscle movement intact. ENT; mouth, oral and nasal mucosa moist without lesion. NECK: Supple. Normal range of motion. No JVD. RESPIRATORY: Clear to auscultate bilaterally, but diminished at the bases. CARDIOVASCULAR: Regular rate and rhythm. Normal S1, S2. There is no S3 or S4. There is significant murmur at the left mediastinal border and the right mediastinal border. 2+ pulses in bilateral upper extremities, but diminished pulses in the bilateral lower extremities. Patient had a wound VAC into the left foot. No edema in the lower extremities. Carotid pulses are present without bruit or thrill. ABDOMEN: Soft, nontender. No mass to palpitate. Bowel sounds are present and distended. SKIN: Warm and dry. No lesion, rash, or erythema noted, except the patient had a wound VAC to the left foot. MUSCULOSKELETAL: Patient is able to move all extremities. NEUROLOGIC: Patient is alert and oriented x4. Nonfocal. PSYCHIATRIC: Patient's mood is appropriate. LABORATORY DATA: WBC 14.4, hemoglobin 12.8, hematocrit 38.5, and platelet 265. Sodium 135, potassium 4.3, BUN 30, creatinine 2.44, and glucose 228. Hemoglobin A1c has been 7.4. Magnesium 1.8. AST 12, ALT 9. ASSESSMENT/PLAN: 1. Symptomatic bradycardia with heart rate down to 30s. Patient was asymptomatic. He has been on atenolol 25 mg twice a day, which was stopped last night after the last night dose, on May 03, 2019. Patient is asymptomatic. We would like to continue to monitor on telemetry. 2. Hypertension. Patient's blood pressure is elevated since atenolol was stopped. We would like to hold lisinopril at this moment due to elevated creatinine level. We would like to start hydralazine 25 mg 3 times a day and adjust as appropriate. He had a clonidine 0.1 mg every 8 hours as needed for blood pressure more than 180. 3. Acute kidney disease. We would like to stop Lovenox and change it to heparin and also we would like to stop lisinopril at this moment. He is not on diuretic at this moment. 4. Peripheral artery disease. The patient has a wound VAC to the left foot. Patient was already consulted by Dr. Grullon. He would like to continue to monitor patient's symptoms. 5. Coronary artery disease status post angioplasty in 1995. Patient's condition is stable at this moment. At this moment, patient's beta carlota is on hold due to the bradycardia and COLLIN inhibitor is on hold due to the acute kidney insufficiency. He is on aspirin 325 mg once a day. Patient might need Plavix for worsening peripheral arterial disease and history of coronary artery disease and he has risk factors which are diabetes and hypertension. 6. Hyperlipidemia. He is on Lipitor 40 mg once a day. Thank you very much for allowing the Cardiology Service to participate in care of this patient. We will follow along the patient's care team, make further recommendations as appropriate. Job ID: [id number] MTDD
--- NOTE | 2019-05-05 03:17 | CON ---
DATE OF CONSULTATION: 05/04/2019 INDICATION FOR CONSULTATION: A 69-year-old gentleman, who is admitted with a nonhealing right foot wound. He has been followed since being here and was noted to have significant bradycardia with heart rate dropping down to the 30s at times and occasionally has junctional rhythms. He has been asymptomatic. He has had slow heart rates in the past, but has remained active. I believe when he was admitted, one of his medications include atenolol. Since this medication has been discontinued, he still continues to have some bradycardia, but not as severe as it was. He did undergo an echocardiogram since being here and ejection fraction was about 45% to 50%. He did have mild to moderate mitral valve regurgitation and also had mildly enlarged left atrium and also mildly enlarged right ventricle, otherwise relatively unremarkable. Echocardiogram showed some thickened and mild aortic valve stenosis. He has been asymptomatic. He did have a coronary disease in the past, underwent angioplasty to a vessel over 20 years ago he says, but has not had any other significant problems since that time and he did not follow up with Cardiology. His about 3 months ago, but prior to that, he remained relatively active. He did develop a problem with his foot back in July when he was out in [place], but since that time, he has to continue to play golf, he still walks on the foot until just recently and up until about 3 years ago play softball and has not had any previous history or had not any further problems with his heart as far as he is aware. He denies any chest pain or shortness of breath. No dizziness, lightheaded, or syncopal episodes despite having the significant bradycardia. PAST MEDICAL HISTORY: Please refer the notes dictated by my nurse practitioner, Spenser Cleveland. SOCIAL HISTORY: Please refer the notes dictated by my nurse practitioner, Spenser Cleveland. FAMILY HISTORY: Please refer the notes dictated by my nurse practitioner, Spenser Cleveland. REVIEW OF SYSTEMS: Please refer the notes dictated by my nurse practitioner, Spenser Cleveland. MEDICATIONS: Please refer the notes dictated by my nurse practitioner, Spenser Cleveland. ALLERGIES: PLEASE REFER THE NOTES DICTATED BY MY NURSE PRACTITIONER, SPENSER C[place]AND. PHYSICAL EXAMINATION: GENERAL: This gentleman shows a well-developed, well-nourished, very pleasant gentleman. VITAL SIGNS: His blood pressure is elevated at 165/70; heart rate is anywhere between 30 to 60 range, today it has been pretty much in the 50s, but occasionally dropped down to the 40s; his respiratory rate is about 18 to 20, O2 saturation is 98% on room air and he is afebrile. HEENT: Shows head to be normocephalic and atraumatic. Carotid pulses are present. I do not hear any significant bruits. CHEST: Clear to auscultation. There were no rales, rhonchi, or wheezing noted. CARDIOVASCULAR: Does reveal a bradycardia. Soft systolic murmur of the aortic area as well as at the apex. His heart sounds are somewhat distant, but if it is carefully listen, one can hear the murmurs. ABDOMEN: Shows morbid obesity. I cannot palpate any tenderness or masses. Could not palpate any irregular pulsation. EXTREMITIES: Did show mild lower extremity edema on the left lower extremity, but the right foot has a rocker-bottom appearance due to his [id number]-Hjtrm syndrome. He has a wound VAC in place on the right foot due to a nonhealing ulcer. I could palpate pulses on the right foot. I also palpate popliteal pulses on both sides. Both feet were warm to the touch. NEUROLOGIC: He appears to be fully intact. He has had normal strength and normal tone. SKIN: Warm and dry. LABORATORY DATA: Shows a hemoglobin 12.8, WBC of 14.4, platelet count was 265,000. His sodium is 135, BUN is 30 with a creatinine of 2.44 and blood sugar is also elevated at 194. His creatinine 2 days ago was 0.92 with a BUN of 20. Apparently, this has changed within the last few days since he has been here, uncertain as to why his creatinine now has increased up to 2.44 that is certainly concerning. IMPRESSION: 1. Bradycardia, which seems to be asymptomatic. We will continue to monitor this patient. He eventually will most likely need a pacemaker insertion as sometimes he has a junctional rhythm, but at this time, we will wait for the infection in the foot to heal since he remains asymptomatic and we will follow this patient most likely when he is discharged, he will need to have an event monitor placed to determine exactly how bradycardic the patient comes up, whether or not he does indeed have symptoms once he leaves the hospital. We would agree with holding the beta blockers at this time. 2. 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 3. Diabetes. The level has increased recently and is somewhat under poor control. His last blood sugar was 207 on the around 8 o'clock, but now is down to 194. 4. Elevated creatinine level of 2.44. This is a new finding from since his admission. This will be addressed by the primary service. He eventually may need to see a manager ecommerce, uncertain as to whether or not this may be due to medications. At this time, the lisinopril has been held, which I would agree with. We may need other medications for his hypertension. I believe he has repeat labs scheduled for tomorrow. We will more than happy to continue to follow the patient with you and also if he has severe bradycardia which persists, this may also cause decreased perfusion, which would therefore cause worsening of his renal insufficiency. 5. History of coronary artery disease. Apparently, he underwent angioplasty in the past. He has not had any significant followup since that time. His EKG shows evidence of possibly an old anterior myocardial infarction and possibly even an inferior myocardial infarction. However, echocardiogram still shows ejection fraction of about 45% to 50%. Once he is more stable, we will also suggest he undergo a stress test to rule out evidence for underlying ischemia. We will continue to see the patient with you and most likely once he is discharged, if he does not have further symptoms before or now, then once he has had resolution of the infection, he will need to undergo further cardiac evaluation and most likely pacemaker insertion and stress testing will also be indicated. Job ID: [id number]
[2019-05-05] MEDS: Piperacillin/Tazobactam 2.25 GM in Sodium Chloride 0.9% 100 ML IVPB SCH ×3 (05:37→21:01)
[2019-05-05 05:51] LABS: Anion Gap 15 mmol/L (10-20); BUN (Urea Nitrogen) 35 mg/dL (8.4-25.7); Calc. Creatinine Clearance 36 mL/min (70-130); Calcium 9.3 mg/dL (7.8-10.44); Carbon Dioxide 22 mmol/L (23-31); Chloride 103 mmol/L (98-107); Estimated GFR-MDRD 21; Glucose 101 mg/dL (80-115); Potassium 3.8 mmol/L (3.5-5.1); Sodium 136 mmol/L (136-145)
[2019-05-05] MEDS: Aspirin 325 mg Enteric Coated Tablet PO SCH (08:04)
[2019-05-05] MEDS: hydrALAZINE 25 MG TAB PO SCH ×3 (08:04→20:52)
[2019-05-05] MEDS: Heparin 5,000 UNITS/ML VIAL SC SCH ×3 (08:04→20:54)
[2019-05-05] MEDS: glipiZIDE 5 MG TAB PO SCH ×2 (08:04→16:06)
[2019-05-05] MEDS: Saccharomyces boulardii 250 MG CAP PO SCH (08:04)
[2019-05-05] MEDS: Amlodipine 10 MG TAB PO SCH (08:04)
--- NOTE | 2019-05-05 11:11 | PDOC.CPN ---
- Subjective Date: 05/05/19 Time: 08:30 Interval history: The pt seen and examined.l No overnight night events. NO cardiac complaints. - Objective Allergies/Adverse Reactions: Allergies Allergy/AdvReac Type Severity Reaction Status Date / Time No Known Drug Allergies Allergy Verified 05/01/19 22:59 Visit Medications: Current Medications Acetaminophen (Tylenol) 650 mg PO Q4H PRN PRN Reason: Headache/Fever/Mild Pain (1-3) Last Admin: 05/04/19 20:43 Dose: 650 mg Amlodipine Besylate (Norvasc) 10 mg PO DAILY [facility] Last Admin: 05/05/19 08:04 Dose: 10 mg Aspirin (Ecotrin) 325 mg PO DAILY [facility] Last Admin: 05/05/19 08:04 Dose: 325 mg Atorvastatin Calcium (Lipitor) 40 mg PO HS [facility] Last Admin: 05/04/19 20:44 Dose: 40 mg Calcium Carbonate (Tums) 1,000 mg PO Q4H PRN PRN Reason: Heartburn or Indigestion Clonidine (Catapres) 0.1 mg PO Q8H PRN PRN Reason: Blood Pressure Dextrose/Water (Dextrose 50%) 25 gm SLOW IVP PRN PRN PRN Reason: Hypoglycemia Glipizide (Glucotrol) 5 mg PO BID-AC [facility] Last Admin: 05/05/19 08:04 Dose: 5 mg Glucagon (Glucagon) 1 mg IM PRN PRN PRN Reason: Hypoglycemia Heparin Sodium (Porcine) (Heparin) 5,000 units SC BID [facility] Last Admin: 05/05/19 08:07 Dose: Not Given Hydralazine HCl (Apresoline) 25 mg PO TID [facility] Last Admin: 05/05/19 08:04 Dose: 25 mg Dextrose/Water (D5w) 1,000 mls @ 0 mls/hr IV .Q0M PRN PRN Reason: Hypoglycemia Vancomycin HCl 1 gm/ Device 200 mls @ 200 mls/hr IVPB .PENDING [facility] Piperacillin Sod/Tazobactam (Sod 2.25 gm/ Sodium Chloride) 100 mls @ 200 mls/ hr IVPB Q8HR [facility] Last Admin: 05/05/19 05:37 Dose: 100 mls Insulin Human Regular (Humulin R) 0 units SC .MILD SLIDING SCALE PRN PRN Reason: Mild Correctional Scale Last Admin: 05/04/19 17:42 Dose: 2 unit Insulin Human Regular (Humulin R) 0 units SC .BEDTIME SLIDING SC PRN PRN Reason: Bedtime Correctional Scale Miscellaneous Medication (Pharmacy To Dose) 1 each IVPB PRN PRN PRN Reason: Pharmacy to dose Ondansetron HCl (Zofran Odt) 4 mg PO Q6H PRN PRN Reason: Nausea/Vomiting Ondansetron HCl (Zofran) 4 mg IVP Q6H PRN PRN Reason: Nausea/Vomiting Saccharomyces Boulardii (Florastor) 250 mg PO DAILY [facility] Last Admin: 05/05/19 08:04 Dose: 250 mg Senna/Docusate Sodium (Senokot S) 2 tab PO BIDPRN PRN PRN Reason: Constipation Sodium Chloride (Flush - Normal Saline) 10 ml IVF PRN PRN PRN Reason: Saline Flush Last Admin: 05/04/19 20:45 Dose: 10 ml Vital Signs & Weight: Vital Signs Temp Pulse Resp BP Pulse Ox 05/05/19 07:59 98.3 F 59 L 16 159/71 H 97 05/05/19 04:00 98 F 59 L 17 164/69 H 94 L 05/04/19 23:32 97.5 F L 53 L 18 146/68 H 96 Admit Weight 226 lb 1.6 oz Weight 233 lb 6.4 oz - Physical Exam General: alert & oriented x3 Cardiac: regular rate and rhythm, S1/S2 Lungs: clear to auscultation Neuro: cranial nerve 2-12 intact Abdomen: unremarkable Extremities: no cyanosis Musculoskeletal: normal range of motion - Labs Result Diagrams: 05/04/19 04:25 05/05/19 04:07 - Assessment/Plan Assessment/Plan: 1. Bradycardia - remains with HR 50-60s. Asymptomatic. Several episodes of bradycardia into the 30's-40's, still asymptomatic. . will d/c home with EVR for 3wks 2. 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 3. DM type 2 - Metformin is on hold due to KENZIE 4. CAD with angoplasty in 1995 - The pt refused to have any stress test at this moment; he would like to have more strength and want Mohan protocol stress test (since his brother during having chemical stress test) 5. KENZIE on CKD MAR reviewed * Echo on 05/04/2019 with EF 45-50%, akinetic apex, mildly dilated LA, mild ERV , mild-mod MR, mild , mild TR. Pt. seen and eval. by me. I agree with the A/P by the EXPRESS CLERK. I explained to him that he will likely need a pacemaker in the near future. He wants to see how he does and wants the foot infection to be better before exploring the possibility of a pacemaker.
[2019-05-05] MEDS ORDERED: hydrALAZINE 25 MG TAB PO SCH (11:15)
--- NOTE | 2019-05-05 11:48 | OP ---
DATE OF PROCEDURE: 05/02/2019 PREOPERATIVE DIAGNOSES: Neuropathic ulcer, left foot proximal arch, medially 3 cm in diameter, 2 cm deep without communication of the deep bones. MRI demonstrates osteomyelitis of the cuneiform and navicular bones. There is no cellulitis. POSTOPERATIVE DIAGNOSES: Neuropathic ulcer, left foot proximal arch, medially 3 cm in diameter, 2 cm deep without communication of the deep bones. MRI demonstrates osteomyelitis of the cuneiform and navicular bones. There is no cellulitis. PROCEDURE PERFORMED: Bedside sharp debridement of surrounding callus and necrotic tissue, revealing a healthy granulation base without sinus tracts. No cellulitis. No purulence. DESCRIPTION OF PROCEDURE: With the patient at bedside, the area was prepared with alcohol. Sharp 10 blade scalpel was used to debride the callus in the surrounding skin at the ulcer base. He has some necrotic skin and subcutaneous tissue debrided sharply, very superficial. Otherwise, the wound was healthy granulating. No sinus tracts. Gauze dressing temporarily applied until Wound Care can place a wound VAC. Job ID: [id number]
[2019-05-05] MEDS: Insulin Regular 300 UNITS/3 ML VIAL SC PRN ×2 (12:50→17:38)
--- NOTE | 2019-05-05 13:15 | SPC ---
Sonographic guided left upper extremity PICC HISTORY: Osteomyelitis. FINDINGS: After explaining the procedure and answering all questions, the left upper extremity was pr epped and draped in usual sterile fashion. Sterile technique, buffered local anesthesia, sonographic guidance, and a 22-gauge needle were used to carefully access the left brachial vein. Sta ndard technique was used to place the tip of a 5 [place]ian single lumen PICC so that the tip lies at the level of the right atrium. The catheter was flushed and secured externally. Patient tolerated the procedure well and was returned in unchanged condition. Fluoroscopy time 0.1 minutes. IMPRESSION: Left upper extremity PICC is ready for use.
--- NOTE | 2019-05-05 14:15 | PDOC.HOSPP ---
- Subjective Encounter Date: 05/05/19 Encounter Time: 14:11 Subjective: no new complainrs - Objective Vital Signs & Weight: Vital Signs (12 hours) Temp Pulse Resp BP BP Pulse Ox 05/05/19 12:40 58 L 151/65 H 05/05/19 11:26 98.1 F 61 17 156/70 H 97 05/05/19 07:59 98.3 F 59 L 16 159/71 H 97 05/05/19 04:00 98 F 59 L 17 164/69 H 94 L Weight Admit Weight 226 lb 1.6 oz Weight 233 lb 6.4 oz I&O: 05/04/19 05/05/19 05/06/19 06:59 06:59 06:59 Intake Total 2146 680 Output Total 700 Balance 2145 - Result Diagrams: 05/04/19 04:25 05/05/19 04:07 Additional Labs: Accuchecks 05/05/19 05/05/19 05/04/19 10:44 05:43 20:21 POC Glucose 217 H 130 H 194 H 05/04/19 16:31 POC Glucose 197 H Hospitalist ROS - Medication Medications: Active Medications Generic Name Dose Route Start Last Admin Trade Name Freq PRN Reason Stop Dose Admin Acetaminophen 650 mg 05/01/19 22:24 05/04/19 20:43 Tylenol PO 650 mg Q4H PRN Administration Headache/Fever/Mild Pain (1-3) Amlodipine Besylate 10 mg 05/03/19 09:00 05/05/19 08:04 Norvasc PO 10 mg DAILY [facility] Administration Aspirin 325 mg 05/02/19 09:00 05/05/19 08:04 Ecotrin PO 325 mg DAILY [facility] Administration Atorvastatin Calcium 40 mg 05/03/19 21:00 05/04/19 20:44 Lipitor PO 40 mg HS [facility] Administration Glipizide 5 mg 05/04/19 16:30 05/05/19 08:04 Glucotrol PO 5 mg BID-AC [facility] Administration Heparin Sodium (Porcine) 5,000 units 05/05/19 09:00 05/05/19 08:07 Heparin SC Not Given BID [facility] Piperacillin Sod/Tazobactam 100 mls @ 200 mls/hr 05/05/19 06:00 05/05/19 05: 37 Sod 2.25 gm/ Sodium Chloride IVPB 100 mls Q8HR [facility] Administration Insulin Human Regular 0 units 05/01/19 22:24 05/05/19 12:50 Humulin R SC 3 unit .MILD SLIDING SCALE PRN Administration Mild Correctional Scale Saccharomyces Boulardii 250 mg 05/02/19 09:00 05/05/19 08:04 Florastor PO 250 mg DAILY [facility] Administration Sodium Chloride 10 ml 05/01/19 22:24 05/04/19 20:45 Flush - Normal Saline IVF 10 ml PRN PRN Administration Saline Flush - Exam General Appearance: NAD, awake alert, ill appearing Eye: PERRL, anicteric sclera, scleral icterus ENT: normocephalic atraumatic, no oropharyngeal lesions, moist mucosa, dry oral mucosa Neck: supple, symmetric, no JVD, no thyromegaly, no lymphadenopathy, no carotid bruit, JVD Heart: RRR, no murmur, no gallops, no rubs, normal peripheral pulses, irregular , diminshed peripheral pulses, murmur present, II/IV, III/IV Respiratory: CTAB, no wheezes, no rales, no ronchi, normal chest expansion, no tachypnea, normal percussion, rales, rhonchi, tachypneic, wheezes Gastrointestinal: soft, non-tender, non-distended, normal bowel sounds, no palpable masses, no hepatomegaly, no splenomegaly, no bruit, no guarding, no rigidity, tender to palpation, distended, diminished bowl sounds, voluntary guarding Extremities: no cyanosis, no clubbing, no edema, 1+ LE edema, 2+ LE edema, clubbing Skin: normal turgor, no lesions, no rashes, tenting Hosp A/P (1) Bradycardia Code(s): R00.1 - BRADYCARDIA, UNSPECIFIED Status: Acute (2) Diabetes mellitus Code(s): E11.9 - TYPE 2 DIABETES MELLITUS WITHOUT COMPLICATIONS Status: Acute (3) Osteomyelitis of left foot Code(s): M86.9 - OSTEOMYELITIS, UNSPECIFIED Status: Acute - Plan PICC Line, restart Glipizide, hold metformin due to renal failure.Apreciate cardiology input, no further intervention now as far as cedric cardia. D/c planning after the PICC line placement.Consut CM for IV antibittics
[2019-05-05] MEDS: Atorvastatin Calcium 40 MG TAB PO SCH (20:52)
[2019-05-05 21:31] LABS: Vancomycin, Random 25.6 ug/mL (See Comment)
[2019-05-05] MEDS ORDERED: Vancomycin HCl 1 GM in Premix Bag 1 BAG IVPB SCH (22:00)
[2019-05-06] MEDS: Ondansetron ODT 4 MG TAB PO PRN ×3 (06:07→19:10)
[2019-05-06] MEDS: Piperacillin/Tazobactam 2.25 GM in Sodium Chloride 0.9% 100 ML IVPB SCH ×3 (06:07→21:29)
[2019-05-06 06:20] LABS: Anion Gap 13 mmol/L (10-20); BUN (Urea Nitrogen) 38 mg/dL (8.4-25.7); Calc. Creatinine Clearance 36 mL/min (70-130); Calcium 9.3 mg/dL (7.8-10.44); Carbon Dioxide 23 mmol/L (23-31); Chloride 105 mmol/L (98-107); Estimated GFR-MDRD 21; Glucose 139 mg/dL (80-115); Sodium 137 mmol/L (136-145)
[2019-05-06] MEDS: glipiZIDE 5 MG TAB PO SCH ×2 (07:19→15:32)
[2019-05-06] MEDS: Saccharomyces boulardii 250 MG CAP PO SCH (09:23)
[2019-05-06] MEDS: hydrALAZINE 25 MG TAB PO SCH ×3 (09:23→20:20)
[2019-05-06] MEDS: Amlodipine 10 MG TAB PO SCH (09:23)
[2019-05-06] MEDS: Aspirin 325 mg Enteric Coated Tablet PO SCH (09:23)
[2019-05-06] MEDS: Heparin 5,000 UNITS/ML VIAL SC SCH ×2 (09:23→20:20)
[2019-05-06 09:46] LABS: Vancomycin, Random 20.1 ug/mL (See Comment)
[2019-05-06] MEDS: Insulin Regular 300 UNITS/3 ML VIAL SC PRN ×3 (11:40→21:37)
--- NOTE | 2019-05-06 14:10 | PDOC.HOSPP ---
- Subjective Encounter Date: 05/06/19 Encounter Time: 14:09 Subjective: The patient does not like to wear telemetry - Objective Vital Signs & Weight: Vital Signs (12 hours) Temp Pulse Resp BP Pulse Ox 05/06/19 11:51 98.6 F 74 17 151/65 H 94 L 05/06/19 07:14 98.3 F 66 16 151/66 H 94 L 05/06/19 04:00 98.9 F 66 18 139/64 93 L Weight Admit Weight 226 lb 1.6 oz Weight 236 lb 8 oz I&O: 05/05/19 05/06/19 05/07/19 06:59 06:59 06:59 Intake Total 680 Output Total 700 300 Balance -20 -300 Result Diagrams: 05/04/19 04:25 05/06/19 05:39 Additional Labs: Accuchecks 05/06/19 05/06/19 05/05/19 10:41 05:51 20:24 POC Glucose 224 H 142 H 175 H 05/05/19 15:42 POC Glucose 169 H Hospitalist ROS - Medication Medications: Active Medications Generic Name Dose Route Start Last Admin Trade Name Freq PRN Reason Stop Dose Admin Acetaminophen 650 mg 05/01/19 22:24 05/04/19 20:43 Tylenol PO 650 mg Q4H PRN Administration Headache/Fever/Mild Pain (1-3) Amlodipine Besylate 10 mg 05/03/19 09:00 05/06/19 09:23 Norvasc PO 10 mg DAILY [facility] Administration Aspirin 325 mg 05/02/19 09:00 05/06/19 09:23 Ecotrin PO 325 mg DAILY [facility] Administration Atorvastatin Calcium 40 mg 05/03/19 21:00 05/05/19 20:52 Lipitor PO 40 mg HS [facility] Administration Glipizide 5 mg 05/04/19 16:30 05/06/19 07:19 Glucotrol PO 5 mg BID-AC [facility] Administration Heparin Sodium (Porcine) 5,000 units 05/05/19 09:00 05/06/19 09:23 Heparin SC 5,000 units BID [facility] Administration Hydralazine HCl 50 mg 05/05/19 15:00 05/06/19 09:23 Apresoline PO 50 mg TID [facility] Administration Piperacillin Sod/Tazobactam 100 mls @ 200 mls/hr 05/05/19 06:00 05/06/19 06: 07 Sod 2.25 gm/ Sodium Chloride IVPB 100 mls Q8HR [facility] Administration Insulin Human Regular 0 units 05/01/19 22:24 05/06/19 11:40 Humulin R SC 3 unit .MILD SLIDING SCALE PRN Administration Mild Correctional Scale Ondansetron HCl 4 mg 05/01/19 22:24 05/06/19 11:48 Zofran Odt PO 4 mg Q6H PRN Administration Nausea/Vomiting Saccharomyces Boulardii 250 mg 05/02/19 09:00 05/06/19 09:23 Florastor PO 250 mg DAILY [facility] Administration Sodium Chloride 10 ml 05/01/19 22:24 05/04/19 20:45 Flush - Normal Saline IVF 10 ml PRN PRN Administration Saline Flush - Exam General Appearance: NAD, awake alert, ill appearing Eye: PERRL, anicteric sclera, scleral icterus ENT: normocephalic atraumatic, no oropharyngeal lesions, moist mucosa, dry oral mucosa Neck: supple, symmetric, no JVD, no thyromegaly, no lymphadenopathy, no carotid bruit, JVD Heart: RRR, no murmur, no gallops, no rubs, normal peripheral pulses, irregular , diminshed peripheral pulses, murmur present, II/IV, III/IV Respiratory: CTAB, no wheezes, no rales, no ronchi, normal chest expansion, no tachypnea, normal percussion, rales, rhonchi, tachypneic, wheezes Gastrointestinal: soft, non-tender, non-distended, normal bowel sounds, no palpable masses, no hepatomegaly, no splenomegaly, no bruit, no guarding, no rigidity, tender to palpation, distended, diminished bowl sounds, voluntary guarding Extremities: no cyanosis, no clubbing, no edema, 1+ LE edema, 2+ LE edema, clubbing Neurological: cranial nerve grossly intact, normal sensation to touch, no weakness, no focal deficits, no new deficit, facial droop, hemiplegia, speech deficit, vision deficit Musculoskeletal: normal tone, normal strength, no muscle wasting, generalized weakness, diffuse muscle atrophy Psychiatric: normal affect, normal behavior, A&O x 3, oriented to person, oriented to place, oriented to time, not oriented, flat affect, somnolent, lethargic Hosp A/P (1) Bradycardia Code(s): R00.1 - BRADYCARDIA, UNSPECIFIED Status: Acute (2) Diabetes mellitus Code(s): E11.9 - TYPE 2 DIABETES MELLITUS WITHOUT COMPLICATIONS Status: Acute (3) Osteomyelitis of left foot Code(s): M86.9 - OSTEOMYELITIS, UNSPECIFIED Status: Acute - Plan PICC Line, restart Glipizide, hold metformin due to renal failure.Apreciate cardiology input, no further intervention now as far as cedric cardia. D/c planning after the PICC line placement.Consut CM for IV antibittics Transfer to medical floor. IV antibiotic plan as per ID
--- NOTE | 2019-05-06 14:40 | PDOC.CPN ---
- Subjective Date: 05/06/19 Time: 14:42 Interval history: The pt seen and examined. No overnight events. No cardiac complaints. - Objective Allergies/Adverse Reactions: Allergies Allergy/AdvReac Type Severity Reaction Status Date / Time No Known Drug Allergies Allergy Verified 05/01/19 22:59 Visit Medications: Current Medications Acetaminophen (Tylenol) 650 mg PO Q4H PRN PRN Reason: Headache/Fever/Mild Pain (1-3) Last Admin: 05/04/19 20:43 Dose: 650 mg Amlodipine Besylate (Norvasc) 10 mg PO DAILY [facility] Last Admin: 05/06/19 09:23 Dose: 10 mg Aspirin (Ecotrin) 325 mg PO DAILY [facility] Last Admin: 05/06/19 09:23 Dose: 325 mg Atorvastatin Calcium (Lipitor) 40 mg PO HS [facility] Last Admin: 05/05/19 20:52 Dose: 40 mg Calcium Carbonate (Tums) 1,000 mg PO Q4H PRN PRN Reason: Heartburn or Indigestion Chlorthalidone (Hygroton) 25 mg PO DAILY [facility] Clonidine (Catapres) 0.1 mg PO Q8H PRN PRN Reason: Blood Pressure Dextrose/Water (Dextrose 50%) 25 gm SLOW IVP PRN PRN PRN Reason: Hypoglycemia Furosemide (Lasix) 20 mg PO DAILY [facility] Glipizide (Glucotrol) 5 mg PO BID-AC [facility] Last Admin: 05/06/19 07:19 Dose: 5 mg Glucagon (Glucagon) 1 mg IM PRN PRN PRN Reason: Hypoglycemia Heparin Sodium (Porcine) (Heparin) 5,000 units SC BID [facility] Last Admin: 05/06/19 09:23 Dose: 5,000 units Hydralazine HCl (Apresoline) 75 mg PO TID [facility] Dextrose/Water (D5w) 1,000 mls @ 0 mls/hr IV .Q0M PRN PRN Reason: Hypoglycemia Piperacillin Sod/Tazobactam (Sod 2.25 gm/ Sodium Chloride) 100 mls @ 200 mls/ hr IVPB Q8HR [facility] Last Admin: 05/06/19 14:38 Dose: 100 mls Vancomycin HCl 1 gm/ Device 200 mls @ 200 mls/hr IVPB Q24HR [facility] Insulin Human Regular (Humulin R) 0 units SC .MILD SLIDING SCALE PRN PRN Reason: Mild Correctional Scale Last Admin: 05/06/19 11:40 Dose: 3 unit Insulin Human Regular (Humulin R) 0 units SC .BEDTIME SLIDING SC PRN PRN Reason: Bedtime Correctional Scale Metformin HCl (Glucophage) 500 mg PO BID-[facility] Miscellaneous Medication (Pharmacy To Dose) 1 each IVPB PRN PRN PRN Reason: Pharmacy to dose Ondansetron HCl (Zofran Odt) 4 mg PO Q6H PRN PRN Reason: Nausea/Vomiting Last Admin: 05/06/19 11:48 Dose: 4 mg Ondansetron HCl (Zofran) 4 mg IVP Q6H PRN PRN Reason: Nausea/Vomiting Saccharomyces Boulardii (Florastor) 250 mg PO DAILY [facility] Last Admin: 05/06/19 09:23 Dose: 250 mg Senna/Docusate Sodium (Senokot S) 2 tab PO BIDPRN PRN PRN Reason: Constipation Sodium Chloride (Flush - Normal Saline) 10 ml IVF PRN PRN PRN Reason: Saline Flush Last Admin: 05/04/19 20:45 Dose: 10 ml Vital Signs & Weight: Vital Signs Temp Pulse Resp BP BP Pulse Ox 05/06/19 14:38 76 149/66 H 05/06/19 11:51 98.6 F 74 17 151/65 H 94 L 05/06/19 07:14 98.3 F 66 16 151/66 H 94 L 05/06/19 04:00 98.9 F 66 18 139/64 93 L Admit Weight 226 lb 1.6 oz Weight 236 lb 8 oz - Physical Exam General: alert & oriented x3 HEENT: mucus membranes moist Neck: supple neck Cardiac: regular rate and rhythm, S1/S2 Lungs: clear to auscultation, decreased breath sounds Neuro: cranial nerve 2-12 intact Abdomen: unremarkable Extremities: no cyanosis Skin: other (Lt foot wound vac) Musculoskeletal: decreased range of motion - Labs Result Diagrams: 05/04/19 04:25 05/06/19 05:39 - Telemetry Sinus rhythms and dysrhythmias: sinus rhythm - Assessment/Plan Assessment/Plan: 1. Bradycardia - remains with HR 60-70s. Asymptomatic. Several episodes of bradycardia into the 30's-40's, still asymptomatic. he is on EVR for 30 days; possible PM placement for Bradycardia once his foot infection is cleared. At this time he remains asymptomatic with the bradycardia and he does not want a pacemaker. He said he will discuss it once the foot is better. 2. 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 3. DM type 2 - Metformin is on hold due to KENZIE 4. CAD with angoplasty in 1995 - The pt refused to have any stress test at this moment; he would like to have more strength and want Mohan protocol stress test (since his brother while having a chemical stress test) 5. KENZIE on CKD SEP reviewed * Echo on 05/04/2019 with EF 45-50%, akinetic apex, mildly dilated LA, mild ERV , mild-mod MR, mild , mild TR. Pt. seen and eval. by me.I agree with the A/P by the [employer]. He has the event monitor in place and could transfer to the medical floor. I will see him in the office in 2-3 weeks. He will likely need a pacemaker in the future if he agrees. At this time I will sign off. geri
[2019-05-06] MEDS ORDERED: hydrALAZINE 25 MG TAB PO SCH ×2 (15:00→15:30)
[2019-05-06] MEDS: metFORMIN 500 MG TAB PO SCH (17:15)
[2019-05-06] MEDS: Vancomycin HCl 1 GM in Premix Bag 1 BAG IVPB SCH (20:20)
[2019-05-06] MEDS: Atorvastatin Calcium 40 MG TAB PO SCH (20:20)
[2019-05-07] MEDS: Piperacillin/Tazobactam 2.25 GM in Sodium Chloride 0.9% 100 ML IVPB SCH ×3 (05:14→22:01)
[2019-05-07] MEDS ORDERED: Atenolol 50 MG TAB PO SCH (09:00)
[2019-05-07] MEDS: Ondansetron ODT 4 MG TAB PO PRN ×2 (09:21→17:00)
[2019-05-07] MEDS: Aspirin 325 mg Enteric Coated Tablet PO SCH (09:24)
[2019-05-07] MEDS: Chlorthalidone 25 MG TAB PO SCH (09:24)
[2019-05-07] MEDS: Amlodipine 10 MG TAB PO SCH (09:25)
[2019-05-07] MEDS: Heparin 5,000 UNITS/ML VIAL SC SCH ×2 (09:25→20:18)
[2019-05-07] MEDS: glipiZIDE 5 MG TAB PO SCH ×2 (09:25→16:58)
[2019-05-07] MEDS: metFORMIN 500 MG TAB PO SCH ×2 (09:26→16:58)
[2019-05-07] MEDS: Saccharomyces boulardii 250 MG CAP PO SCH (09:26)
[2019-05-07] MEDS: hydrALAZINE 25 MG TAB PO SCH ×3 (09:26→20:18)
[2019-05-07] MEDS: Furosemide 20 MG TAB PO SCH (09:26)
[2019-05-07] MEDS: Insulin Regular 300 UNITS/3 ML VIAL SC PRN (12:47)
--- NOTE | 2019-05-07 14:42 | PDOC.HOSPP ---
- Subjective Encounter Date: 05/07/19 Encounter Time: 14:41 Subjective: No new complaints - Objective Vital Signs & Weight: Vital Signs (12 hours) Temp Pulse Resp BP Pulse Ox 05/07/19 09:26 65 05/07/19 09:25 65 05/07/19 07:30 98.6 F 65 20 120/50 L 93 L 05/07/19 06:28 95 05/07/19 04:00 98.6 F 63 18 132/66 95 Weight Admit Weight 226 lb 1.6 oz Weight 234 lb 4 oz I&O: 05/06/19 05/07/19 05/08/19 06:59 06:59 06:59 Intake Total 680 Output Total 300 Balance -300 680 Result Diagrams: 05/04/19 04:25 05/06/19 05:39 Additional Labs: Accuchecks 05/07/19 05/07/19 05/06/19 12:01 04:12 21:30 POC Glucose 201 H 149 H 225 H 05/06/19 16:46 POC Glucose 185 H Hospitalist ROS - Medication Medications: Active Medications Generic Name Dose Route Start Last Admin Trade Name Freq PRN Reason Stop Dose Admin Acetaminophen 650 mg 05/01/19 22:24 05/04/19 20:43 Tylenol PO 650 mg Q4H PRN Administration Headache/Fever/Mild Pain (1-3) Amlodipine Besylate 10 mg 05/03/19 09:00 05/07/19 09:25 Norvasc PO 10 mg DAILY [facility] Administration Aspirin 325 mg 05/02/19 09:00 05/07/19 09:24 Ecotrin PO 325 mg DAILY [facility] Administration Atorvastatin Calcium 40 mg 05/03/19 21:00 05/06/19 20:20 Lipitor PO 40 mg HS [facility] Administration Chlorthalidone 25 mg 05/07/19 09:00 05/07/19 09:24 Hygroton PO 25 mg DAILY [facility] Administration Furosemide 20 mg 05/07/19 09:00 05/07/19 09:26 Lasix PO 20 mg DAILY [facility] Administration Glipizide 5 mg 05/04/19 16:30 05/07/19 09:25 Glucotrol PO 5 mg BID-AC [facility] Administration Heparin Sodium (Porcine) 5,000 units 05/05/19 09:00 05/07/19 09:25 Heparin SC 5,000 units BID [facility] Administration Hydralazine HCl 75 mg 05/06/19 21:00 05/07/19 09:26 Apresoline PO 75 mg TID [facility] Administration Piperacillin Sod/Tazobactam 100 mls @ 200 mls/hr 05/05/19 06:00 05/07/19 12: 59 Sod 2.25 gm/ Sodium Chloride IVPB 100 mls Q8HR [facility] Administration Vancomycin HCl 1 gm/ Device 200 mls @ 200 mls/hr 05/06/19 21:00 05/06/19 20: 20 IVPB 200 mls Q24HR [facility] Administration Insulin Human Regular 0 units 05/01/19 22:24 05/07/19 12:47 Humulin R SC 3 unit .MILD SLIDING SCALE PRN Administration Mild Correctional Scale Insulin Human Regular 0 units 05/01/19 22:24 05/06/19 21:37 Humulin R SC 2 unit .BEDTIME SLIDING SC PRN Administration Bedtime Correctional Scale Metformin HCl 500 mg 05/06/19 17:00 05/07/19 09:26 Glucophage PO 500 mg BID-WM [facility] Administration Ondansetron HCl 4 mg 05/01/19 22:24 05/07/19 09:21 Zofran Odt PO 4 mg Q6H PRN Administration Nausea/Vomiting Saccharomyces Boulardii 250 mg 05/02/19 09:00 05/07/19 09:26 Florastor PO 250 mg DAILY [facility] Administration Sodium Chloride 10 ml 05/01/19 22:24 05/04/19 20:45 Flush - Normal Saline IVF 10 ml PRN PRN Administration Saline Flush - Exam General Appearance: NAD, awake alert, ill appearing Eye: PERRL, anicteric sclera, scleral icterus ENT: normocephalic atraumatic, no oropharyngeal lesions, moist mucosa, dry oral mucosa Neck: supple, symmetric, no JVD, no thyromegaly, no lymphadenopathy, no carotid bruit, JVD Heart: RRR, no murmur, no gallops, no rubs, normal peripheral pulses, irregular , diminshed peripheral pulses, murmur present, II/IV, III/IV Respiratory: CTAB, no wheezes, no rales, no ronchi, normal chest expansion, no tachypnea, normal percussion, rales, rhonchi, tachypneic, wheezes Gastrointestinal: soft, non-tender, non-distended, normal bowel sounds, no palpable masses, no hepatomegaly, no splenomegaly, no bruit, no guarding, no rigidity, tender to palpation, distended, diminished bowl sounds, voluntary guarding Extremities: no cyanosis, no clubbing, no edema, 1+ LE edema, 2+ LE edema, clubbing Skin: normal turgor, no lesions, no rashes, tenting Neurological: cranial nerve grossly intact, normal sensation to touch, no weakness, no focal deficits, no new deficit, facial droop, hemiplegia, speech deficit, vision deficit Musculoskeletal: normal tone, normal strength, no muscle wasting, generalized weakness, diffuse muscle atrophy Psychiatric: normal affect, normal behavior, A&O x 3, oriented to person, oriented to place, oriented to time, not oriented, flat affect, somnolent, lethargic Hosp A/P (1) Bradycardia Code(s): R00.1 - BRADYCARDIA, UNSPECIFIED Status: Acute (2) Diabetes mellitus Code(s): E11.9 - TYPE 2 DIABETES MELLITUS WITHOUT COMPLICATIONS Status: Acute (3) Osteomyelitis of left foot Code(s): M86.9 - OSTEOMYELITIS, UNSPECIFIED Status: Acute - Plan PICC Line, restart Glipizide, hold metformin due to renal failure.Appreciate cardiology input, no further intervention now as far as cedric cardia. D/c planning after the PICC line placement.Consult CM for IV antibiotics Transfer to medical floor. IV antibiotic plan as per ID. Id will return on to set up termite treater helper IV antibiotics
[2019-05-07] MEDS: Atorvastatin Calcium 40 MG TAB PO SCH (20:18)
[2019-05-07] MEDS: Vancomycin HCl 1 GM in Premix Bag 1 BAG IVPB SCH (20:19)
[2019-05-08] MEDS: Ondansetron ODT 4 MG TAB PO PRN ×3 (02:38→16:02)
[2019-05-08] MEDS: Piperacillin/Tazobactam 2.25 GM in Sodium Chloride 0.9% 100 ML IVPB SCH ×2 (05:08→12:59)
[2019-05-08] MEDS: glipiZIDE 5 MG TAB PO SCH ×2 (07:49→16:02)
[2019-05-08] MEDS: Chlorthalidone 25 MG TAB PO SCH (07:49)
[2019-05-08] MEDS: hydrALAZINE 25 MG TAB PO SCH ×3 (07:49→21:17)
[2019-05-08] MEDS: Furosemide 20 MG TAB PO SCH (07:49)
[2019-05-08] MEDS: Amlodipine 10 MG TAB PO SCH (07:49)
[2019-05-08] MEDS: Saccharomyces boulardii 250 MG CAP PO SCH (07:49)
[2019-05-08] MEDS: metFORMIN 500 MG TAB PO SCH ×2 (07:49→16:02)
[2019-05-08] MEDS: Aspirin 325 mg Enteric Coated Tablet PO SCH (07:49)
[2019-05-08] MEDS: Heparin 5,000 UNITS/ML VIAL SC SCH ×2 (07:50→21:22)
[2019-05-08] MEDS: Insulin Regular 300 UNITS/3 ML VIAL SC PRN (13:08)
--- NOTE | 2019-05-08 17:13 | PDOC.HOSPP ---
- Subjective Subjective: Seen and examined. Patient states that he's feeling better. Left foot with wound VAC. Has been getting better with wound care and antibiotic therapy. He states that he is feeling more swollen and edematous. He states that he takes Lasix, this has been continued. Patient not on fluid restrictions. Ejection fraction reduced to 45%. - Objective Vital Signs & Weight: Vital Signs (12 hours) Temp Pulse Resp BP BP Pulse Ox 05/08/19 16:02 82 05/08/19 11:00 98.0 F 82 20 125/56 L 91 L 05/08/19 08:00 97.8 F 68 18 129/56 L 93 L 05/08/19 07:49 70 05/08/19 06:00 70 18 93 L Weight Admit Weight 226 lb 1.6 oz Weight 236 lb 4 oz I&O: 05/07/19 05/08/19 05/09/19 06:59 06:59 06:59 Intake Total 680 920 Balance 680 920 Result Diagrams: 05/04/19 04:25 05/06/19 05:39 Additional Labs: Accuchecks 05/08/19 05/08/19 05/07/19 11:01 04:08 20:20 POC Glucose 179 H 151 H 200 H Radiology Reviewed by me: Yes (Echo) Hospitalist ROS - Review of Systems All other systems reviewed; all pertinent +/- noted in HPI/Subj - Medication Medications: Active Medications Generic Name Dose Route Start Last Admin Trade Name Freq PRN Reason Stop Dose Admin Acetaminophen 650 mg 05/01/19 22:24 05/04/19 20:43 Tylenol PO 650 mg Q4H PRN Administration Headache/Fever/Mild Pain (1-3) Amlodipine Besylate 10 mg 05/03/19 09:00 05/08/19 07:49 Norvasc PO 10 mg DAILY [facility] Administration Aspirin 325 mg 05/02/19 09:00 05/08/19 07:49 Ecotrin PO 325 mg DAILY [facility] Administration Atorvastatin Calcium 40 mg 05/03/19 21:00 05/07/19 20:18 Lipitor PO 40 mg HS [facility] Administration Chlorthalidone 25 mg 05/07/19 09:00 05/08/19 07:49 Hygroton PO 25 mg DAILY [facility] Administration Furosemide 20 mg 05/07/19 09:00 05/08/19 07:49 Lasix PO 20 mg DAILY [facility] Administration Glipizide 5 mg 05/04/19 16:30 05/08/19 16:02 Glucotrol PO 5 mg BID-AC [facility] Administration Heparin Sodium (Porcine) 5,000 units 05/05/19 09:00 05/08/19 07:50 Heparin SC 5,000 units BID [facility] Administration Hydralazine HCl 75 mg 05/06/19 21:00 05/08/19 16:02 Apresoline PO 75 mg TID [facility] Administration Vancomycin HCl 1 gm/ Device 200 mls @ 200 mls/hr 05/06/19 21:00 05/07/19 20: 19 IVPB 200 mls Q24HR [facility] Administration Insulin Human Regular 0 units 05/01/19 22:24 05/08/19 13:08 Humulin R SC 3 unit .MILD SLIDING SCALE PRN Administration Mild Correctional Scale Insulin Human Regular 0 units 05/01/19 22:24 05/06/19 21:37 Humulin R SC 2 unit .BEDTIME SLIDING SC PRN Administration Bedtime Correctional Scale Metformin HCl 500 mg 05/06/19 17:00 05/08/19 16:02 Glucophage PO 500 mg BID-WM [facility] Administration Ondansetron HCl 4 mg 05/01/19 22:24 05/08/19 16:02 Zofran Odt PO 4 mg Q6H PRN Administration Nausea/Vomiting Saccharomyces Boulardii 250 mg 05/02/19 09:00 05/08/19 07:49 Florastor PO 250 mg DAILY [facility] Administration Sodium Chloride 10 ml 05/01/19 22:24 05/04/19 20:45 Flush - Normal Saline IVF 10 ml PRN PRN Administration Saline Flush - Exam General Appearance: NAD, awake alert Eye: PERRL, anicteric sclera ENT: normocephalic atraumatic, moist mucosa Neck: supple, symmetric, no lymphadenopathy Heart: no murmur, no gallops, no rubs Respiratory: CTAB, no wheezes, no rales, no ronchi, normal chest expansion Gastrointestinal: soft, non-tender, no guarding, no rigidity Extremities: 1+ LE edema Skin: no rashes Skin - other findings: Wound vac in position, see wound care pictures for details Neurological: cranial nerve grossly intact, normal sensation to touch, no focal deficits Musculoskeletal: generalized weakness Psychiatric: normal affect, normal behavior, A&O x 3 Hosp A/P (1) 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 Code(s): E11.610 - TYPE 2 DIABETES MELLITUS W DIABETIC NEUROPATHIC ARTHROPATHY Status: Acute (2) Diabetes mellitus Code(s): E11.9 - TYPE 2 DIABETES MELLITUS WITHOUT COMPLICATIONS Status: Acute (3) HTN (hypertension) Code(s): I10 - ESSENTIAL (PRIMARY) HYPERTENSION Status: Acute (4) Hyperkalemia Code(s): E87.5 - HYPERKALEMIA Status: Acute (5) Non-healing ulcer of left foot Code(s): L97.529 - NON-PRESSURE CHRONIC ULCER OTH PRT LEFT FOOT W UNSP SEVERITY Status: Acute (6) Osteomyelitis of left foot Code(s): M86.9 - OSTEOMYELITIS, UNSPECIFIED Status: Acute (7) PAD (peripheral artery disease) Code(s): I73.9 - PERIPHERAL VASCULAR DISEASE, UNSPECIFIED Status: Acute - Plan Plan: medical unit infectious disease consultation, recommendations appreciated general surgery consultation, recommendations appreciated status post amputation for osteomyelitis wound back in position question is which antibiotics and for how long he will need to be on them per ID may benefit from inpatient therapy for wound care management, IV antibiotics, and close follow-up patient does not have good social support at home continue other home medications is able continue cardiomyopathy regimen restrict fluids for cardiomyopathy with ejection fraction 45% continue Lasix
--- NOTE | 2019-05-08 18:23 | ULT ---
RENAL SONOGRAM: 05/08/19 HISTORY: Renal failure. FINDINGS: Right kidney is 14.2 cm in length and left is 15.0 cm. There is no evidence of mass, stone, hydroneph rosis. Urinary bladder has a normal appearance. IMPRESSION: Normal renal sonogram. POS: BST
[2019-05-08 20:29] LABS: Vancomycin, Trough 22.3 ug/mL
[2019-05-08] MEDS ORDERED: Vancomycin HCl 750 MG in Sodium Chloride 0.9% 250 ML 250 ML IVPB SCH (21:00)
[2019-05-08] MEDS: Atorvastatin Calcium 40 MG TAB PO SCH (21:17)
--- NOTE | 2019-05-08 22:19 | CON ---
DATE OF CONSULTATION: 05/08/2019 REASON FOR CONSULTATION: Osteomyelitis of the left foot. HISTORY OF PRESENT ILLNESS: A 69-year-old with history of type 2 diabetes, neuropathy with Charcot arthropathy of left foot, and prior myocardial infarction, who developed an ulcerated area in the left plantar area mid foot region, who was evaluated by Dr. Morrow in the outpatient setting. An MRI showed findings consistent with osteomyelitis of cuboid and middle cuneiform and was therefore admitted. Dr. Payne did a limited debridement on the , which was a bedside procedure. This was used to debride the callus and surrounding skin at the ulcer base. There was some necrotic skin and subcutaneous tissue debrided sharply, which was quite superficial. The wound appeared with healthy granulation otherwise. The MRI findings were reviewed, those were done on the and it showed the ulcer contacted plantar surface of the cuboid. There was evidence of cortical osteolysis, abnormal marrow signal intensity involving the cuboid consistent with changes of osteomyelitis. 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 The cultures from the site revealed MRSA and Streptococcus mitis and Peptostreptococcus. Currently, he denies any headaches, visual symptoms, sore throat, odynophagia, or dysphagia. No cough or sputum production. No chest pain. No abdominal pain or diarrhea. No genitourinary symptoms. No other joint symptoms. He is urinating without any problems. The patient has developed decreasing renal function of unclear reason since admission. His GFR was calculated at 70, when he came in and it is down to 21 at this time. PAST MEDICAL HISTORY: Type 2 diabetes, myocardial infarction, coronary artery disease, prior stenting, hyperlipidemia, and hypertension. PAST SURGICAL HISTORY: Cardiac catheterization. CURRENT MEDICATIONS: 1. Tylenol. 2. Norvasc. 3. Ecotrin. 4. Lipitor. 5. Tums. 6. Hygroton. 7. Catapres. 8. Lasix. 9. Glucotrol. 10. Hydralazine. 11. Insulin. 12. Glucophage. 13. Zofran. 14. Zosyn. 15. Vancomycin. ALLERGIES: NONE. FAMILY HISTORY: Noncontributory. PHYSICAL EXAMINATION: VITAL SIGNS: With a T-max of 98.1, blood pressure 120/50, pulse 82, respirations 18 to 20, and O2 saturation 91% to 95%. SKIN: Shows the plantar wound with a round-shaped ulcer at the mid foot. This is bright before debridement. There is no erythema surrounding this area. No lymphadenopathy. HEENT: Noncontributory. NECK: Supple. LUNGS: Symmetric. Clear breath sounds. HEART: S1 and S2, regular rate. No S3 or S4. ABDOMEN: Soft, not distended or tender. No ascites. : No bladder distention. MUSCULOSKELETAL: No joint inflammatory activity. Moves extremities equally except for limitations imposed by the left foot ulcer. NEURO: His cognitive function appears to be intact. LABORATORY DATA: Latest labs; white cell count is down to 14,000, hemoglobin 12.8, and platelets 265. Creatinine is at 3.05 at this time. The cultures with MRSA and Streptococcus mitis and Peptostreptococcus asaccharolyticus, this is from April 23, so this is a final result. ASSESSMENT: Type 2 diabetes with peripheral vascular disease and Charcot arthropathy, neuropathy, and chronic ulcer of left foot with evidence of osteomyelitis on MRI, status post superficial debridement. DISCUSSION: The patient had evaluation by Dr. Grullon regarding his peripheral vascular disease and he did not recommend revascularization, although he did have some significant findings on ultrasound done this admission. He would not be eligible for any contrast study at this time because of his decrease in glomerular filtration rate, but I hope that his kidney function will turn around and improve. In the meantime, we will continue vancomycin. Discontinue Zosyn. He already has a PICC line inserted when he came in and then we could set up a treatment in the outpatient setting until mid June approximately. I have discussed with the patient and family the risk of amputation because of the Charcot arthropathy, the evidence of midfoot osteomyelitis, and peripheral vascular disease. I would also advise them to not allow him to walk other than with a boot. He does have a boot now, but he has not been using it. He probably needs another layer of cushion placed with a central opening to accommodate the bulge from the Charcot arthropathy deformity. Whenever and if his GFR improves, then I would reconsider angiogram to extremities to see if he would be amenable to revascularization of large arterial vessel in the proximal L L extremity. Job ID: [id number] [facility]
[2019-05-09] MEDS: glipiZIDE 5 MG TAB PO SCH ×2 (08:27→17:55)
[2019-05-09] MEDS: Saccharomyces boulardii 250 MG CAP PO SCH (08:27)
[2019-05-09] MEDS: Furosemide 20 MG TAB PO SCH (08:27)
[2019-05-09] MEDS: Aspirin 325 mg Enteric Coated Tablet PO SCH (08:27)
[2019-05-09] MEDS: Chlorthalidone 25 MG TAB PO SCH (08:27)
[2019-05-09] MEDS: hydrALAZINE 25 MG TAB PO SCH ×3 (08:27→19:58)
[2019-05-09] MEDS: Amlodipine 10 MG TAB PO SCH (08:27)
[2019-05-09] MEDS: Heparin 5,000 UNITS/ML VIAL SC SCH ×2 (08:27→19:57)
[2019-05-09] MEDS: metFORMIN 500 MG TAB PO SCH (08:27)
[2019-05-09 13:56] LABS: Anion Gap 14 mmol/L (10-20); BUN (Urea Nitrogen) 62 mg/dL (8.4-25.7); Calc. Creatinine Clearance 29 mL/min (70-130); Calcium 8.9 mg/dL (7.8-10.44); Carbon Dioxide 22 mmol/L (23-31); Chloride 101 mmol/L (98-107); Estimated GFR-MDRD 16; Glucose 121 mg/dL (80-115); Potassium 4.2 mmol/L (3.5-5.1); Sodium 133 mmol/L (136-145)
--- NOTE | 2019-05-09 13:58 | PDOC.HOSPP ---
- Subjective Subjective: Seen and examined. Renal function worsening, renal US negative for obstruction. Will ask for nephrology input. Patient was hoping to go home, though not safe with current renal condition. All questions answered in detail. - Objective Vital Signs & Weight: Vital Signs (12 hours) Temp Pulse Resp BP Pulse Ox 05/09/19 08:00 97.7 F 73 18 150/70 H 96 05/09/19 04:00 97.8 F 71 20 129/61 93 L Weight Admit Weight 226 lb 1.6 oz Weight 239 lb 7 oz I&O: 05/08/19 05/09/19 05/10/19 06:59 06:59 06:59 Intake Total 920 730 Balance 920 730 Result Diagrams: 05/04/19 04:25 05/06/19 05:39 Additional Labs: Accuchecks 05/09/19 05/09/19 05/08/19 12:00 06:09 19:44 POC Glucose 143 H 112 H 140 H 05/08/19 17:24 POC Glucose 154 H Radiology Reviewed by me: Yes (Renal US) Hospitalist ROS - Review of Systems All other systems reviewed; all pertinent +/- noted in HPI/Subj - Medication Medications: Active Medications Generic Name Dose Route Start Last Admin Trade Name Freq PRN Reason Stop Dose Admin Acetaminophen 650 mg 05/01/19 22:24 05/04/19 20:43 Tylenol PO 650 mg Q4H PRN Administration Headache/Fever/Mild Pain (1-3) Amlodipine Besylate 10 mg 05/03/19 09:00 05/09/19 08:27 Norvasc PO 10 mg DAILY DEWAYNE Administration Aspirin 325 mg 05/02/19 09:00 05/09/19 08:27 Ecotrin PO 325 mg DAILY DEWAYNE Administration Atorvastatin Calcium 40 mg 05/03/19 21:00 05/08/19 21:17 Lipitor PO 40 mg HS DEWAYNE Administration Chlorthalidone 25 mg 05/07/19 09:00 05/09/19 08:27 Hygroton PO 25 mg DAILY DEWAYNE Administration Furosemide 20 mg 05/07/19 09:00 05/09/19 08:27 Lasix PO 20 mg DAILY DEWAYNE Administration Glipizide 5 mg 05/04/19 16:30 05/09/19 08:27 Glucotrol PO 5 mg BID-AC DEWAYNE Administration Heparin Sodium (Porcine) 5,000 units 05/05/19 09:00 05/09/19 08:27 Heparin SC 5,000 units BID DEWAYNE Administration Hydralazine HCl 75 mg 05/06/19 21:00 05/09/19 08:27 Apresoline PO 75 mg TID DEWAYNE Administration Vancomycin HCl 750 mg/ Sodium 250 mls @ 250 mls/hr 05/08/19 21:00 05/08/19 21 :18 Chloride IVPB 250 mls Q24HR@2100 DEWAYNE Administration Insulin Human Regular 0 units 05/01/19 22:24 05/08/19 13:08 Humulin R SC 3 unit .MILD SLIDING SCALE PRN Administration Mild Correctional Scale Insulin Human Regular 0 units 05/01/19 22:24 05/06/19 21:37 Humulin R SC 2 unit .BEDTIME SLIDING SC PRN Administration Bedtime Correctional Scale Metformin HCl 500 mg 05/06/19 17:00 05/09/19 08:27 Glucophage PO 500 mg BID-WM DEWAYNE Administration Ondansetron HCl 4 mg 05/01/19 22:24 05/08/19 16:02 Zofran Odt PO 4 mg Q6H PRN Administration Nausea/Vomiting Saccharomyces Boulardii 250 mg 05/02/19 09:00 05/09/19 08:27 Florastor PO 250 mg DAILY DEWAYNE Administration Sodium Chloride 10 ml 05/01/19 22:24 05/04/19 20:45 Flush - Normal Saline IVF 10 ml PRN PRN Administration Saline Flush - Exam General Appearance: NAD, awake alert Eye: PERRL ENT: normocephalic atraumatic, moist mucosa Neck: supple, symmetric, no lymphadenopathy Heart: no murmur, no gallops, no rubs Respiratory: CTAB, no wheezes, no rales, no ronchi Gastrointestinal: soft, non-tender, non-distended, normal bowel sounds, no hepatomegaly Extremities: 1+ LE edema Skin: no lesions, no rashes Skin - other findings: See wound pictures for details. 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 Code(s): E11.610 - TYPE 2 DIABETES MELLITUS W DIABETIC NEUROPATHIC ARTHROPATHY Status: Acute (2) Diabetes mellitus Code(s): E11.9 - TYPE 2 DIABETES MELLITUS WITHOUT COMPLICATIONS Status: Acute (3) HTN (hypertension) Code(s): I10 - ESSENTIAL (PRIMARY) HYPERTENSION Status: Acute (4) Hyperkalemia Code(s): E87.5 - HYPERKALEMIA Status: Acute (5) Non-healing ulcer of left foot Code(s): L97.529 - NON-PRESSURE CHRONIC ULCER OTH PRT LEFT FOOT W UNSP SEVERITY Status: Acute (6) Osteomyelitis of left foot Code(s): M86.9 - OSTEOMYELITIS, UNSPECIFIED Status: Acute (7) PAD (peripheral artery disease) Code(s): I73.9 - PERIPHERAL VASCULAR DISEASE, UNSPECIFIED Status: Acute - Plan Plan: medical unit Nephrology consultation, recommendations appreciated infectious disease consultation, recommendations appreciated general surgery consultation, recommendations appreciated Renal US negative for obstruction Avoid nephrotoxic medications as able status post amputation for osteomyelitis wound vac in position Responding on current IV ABX, though with KENZIE may need to adjust continue other home medications is able continue cardiomyopathy regimen cardiomyopathy with ejection fraction 45% D/c Lasix, lighten fluid restriction with KENZIE Stop Statin with KENZIE
[2019-05-09] MEDS: Ondansetron ODT 4 MG TAB PO PRN (14:28)
[2019-05-09] MEDS ORDERED: Sodium Bicarbonate 75 MEQ in Sodium Chloride 0.45% 1,000 ML IV SCH (16:30)
--- NOTE | 2019-05-09 16:55 | PRG ---
DATE OF SERVICE: 05/09/2019 SUBJECTIVE: The patient denies any headaches. No shortness of breath or abdominal pain. He is still voiding as previously noted and no changes in the feet symptoms OBJECTIVE: VITAL SIGNS: T-max 98.3, blood pressure 117/65, pulse 73, respirations 18 to 20, O2 saturation 96%. GENERAL: He appears in no distress. LUNGS: Clear. HEART: S1, S2, regular rate. ABDOMEN: Soft, not distended. No bladder distention. LABORATORY DATA: White cell count 14.4, hemoglobin 12.8, platelets 265. The creatinine is up to 3.75. ASSESSMENT AND DISCUSSION: Type 2 diabetes, peripheral vascular disease, Charcot arthropathy, neuropathy, chronic ulcer, foot with evidence of osteomyelitis on MRI and now worsening renal function. Due to concerns with nephrotoxicity from the combination of vancomycin and Zosyn, we will switch him to ceftaroline for the time being. Ceftaroline has coverage for both streptococcal pathogens and methicillin-resistant Staphylococcus aureus. The dose will be adjusted for renal function. The discharge planning will have to be delayed until there is plateauing of the creatinine increase. Nephrology consultation will be needed. Job ID: [id number]
[2019-05-09 17:08] LABS: Bilirubin Negative (Negative); Blood, Urine Negative (Negative); Clarity Clear (Clear); Glucose, Urine (Dipstick) Normal (Negative); Leukocyte Negative Leu/uL (Negative); Nitrite Negative (Negative); Protein, Urine (Dipstick) 20 mg/dL (Neg-Trace); RBC/HPF 0-3 HPF (0-3); Squamous Epithelial None Seen HPF (0-3); Urobilinogen Normal mg/dL (Less than 2); WBC/HPF 0-3 HPF (0-3)
[2019-05-09 17:25] LABS: Bacteria/HPF None Seen HPF (None Seen)
[2019-05-09 17:26] LABS: Urine Culture Reflex No No
[2019-05-09 17:28] LABS: Creatinine, Urine 132.42 mg/dL (63-166); Protein, Urine Random Quant 21 mg/dL (1-14); Sodium, Urine Less than 20 mmol/L (Not Available); Urea Nitrogen, Random Urine 448 mg/dl
--- NOTE | 2019-05-09 17:30 | CON ---
DATE OF CONSULTATION: 05/09/2019 SERVICE: Nephrology. REQUESTING PHYSICIAN: Dr. Vitaly Hutchinson. REASON FOR CONSULTATION: Acute renal failure. HISTORY OF PRESENT ILLNESS: A 69-year-old male with known history of diabetes, hypertension, coronary artery disease, admitted with nonhealing left plantar wound and osteomyelitis noted on MRI. The patient was started on IV vancomycin and Zosyn on admission. Further evaluation revealed peripheral artery disease necessitating vascular surgery and it was deemed nonoperable. The patient however later developed bradycardia despite discontinuation of beta blockers, necessitating Cardiology consult. During the course of hospitalization, creatinine bumped from baseline from 0.92 to 2.44 on May 04. Note that on May 04, vancomycin trough was 40.7. The patient also had echocardiogram that showed cardiomyopathy with hypokinesis and ejection fraction of 40 to 45, hence he was started on diuretic therapy with chlorthalidone. Creatinine continued to trend up to a peak of 3.75 today, necessitating Nephrology consult. The patient also was found to have hyponatremia today with sodium of 133. He denied nausea, vomiting, abdominal pain, leg pain, leg swelling, dysuria, hematuria, shortness of breath, focal weakness, worsening pain, or change in bowel habit. PAST MEDICAL HISTORY: 1. Type 2 diabetes mellitus. 2. Hypertension. 3. Hyperlipidemia. 4. Coronary artery disease, status post CA with angioplasty in 1995. 5. Obesity. 6. Depression. 7. Peripheral artery disease. 8. Cardiomyopathy. PAST SURGICAL HISTORY: Cardiac catheterization with angioplasty. FAMILY HISTORY: Significant for coronary artery disease in brother and father. Brother at age 78 after prior MIs and CABG. Mother also had cancer of the liver. SOCIAL HISTORY: The patient is a . He is living by himself currently. He is an ex-smoker that quit in 1995 after about 15 years of smoking. The patient used to drink heavily about 2 to 6 beers everyday, but has been sober in the last 2 months. Denied recreational drug use. ALLERGIES: NO KNOWN DRUG ALLERGIES REPORTED. MEDICATIONS: Prior to hospital medications; 1. Aspirin 325 mg p.o. daily. 2. Atenolol and chlorthalidone 100/25 mg p.o. daily. 3. Furosemide 20 mg p.o. daily. 4. Glipizide 5 mg p.o. b.i.d. 5. Lovastatin 40 mg q.p.m. 6. Metformin 500 mg p.o. b.i.d. Current hospital medications; 1. Vancomycin 1 g q.24 hours. 2. Amlodipine 10 mg p.o. daily. 3. Aspirin 325 mg p.o. daily. 4. Lipitor 40 mg p.o. daily at bedtime. 5. Chlorthalidone 25 mg p.o. daily. 6. Furosemide 20 mg p.o. daily. 7. Glipizide 5 mg p.o. b.i.d. 8. Heparin subcu 5000 units b.i.d. 9. Hydralazine 75 mg p.o. t.i.d. 10. Metformin 500 mg p.o. b.i.d. 11. Saccharomyces boulardii 250 mg p.o. daily. 12. Acetaminophen 650 mg q.4 p.r.n. 13. Clonidine 0.1 mg p.o. q.8 p.r.n. for acute elevation in blood pressure. 14. Sliding scale insulin. REVIEW OF SYSTEMS: A 12-point review of system performed, was negative other than pertinent positives and negatives included in the history of present illness. PHYSICAL EXAMINATION: VITAL SIGNS: Temperature 97.7, pulse 73, respiratory rate 18, SpO2 of 96% on room air, blood pressure is 117/65. GENERAL: Male patient, in no obvious distress. Afebrile, anicteric, acyanotic. HEENT: Normocephalic and atraumatic. Oral mucosa is moist. NECK: Supple and nontender with good range of motion. No lymphadenopathy, JVD, or masses appreciated. CARDIOVASCULAR: Regular rhythm and rate with normal heart sounds 1 and 2. RESPIRATORY: Fair air entry bilaterally with few bibasilar crackles. No obvious rhonchi or use of accessory muscles was appreciated. GI: Abdomen is obese, soft, nontender, nondistended with normal bowel sounds. EXTREMITIES: Left foot covered with dressing. Otherwise, there is no edema or erythema. DYE TUB OPERATOR: Conscious, alert, oriented x3 with appropriate mental status. Cranial nerves 2 through 12 are grossly intact. The patient moves all extremities. PSYCHIATRIC: The patient has labile mood. He seems frustrated that he is still in the hospital. DIAGNOSTIC DATA: potassium of 4.2, chloride of 101, CO2 of 22, BUN of 62, creatinine of 3.75, glucose 121, calcium 8.9. Last BMP before this was on May 06, which showed sodium of 137, potassium 4.0, chloride 105, CO2 of 23, BUN 38, creatinine 3.05, glucose 139, calcium 9.3. Renal ultrasound performed on May 08, showed renomegaly with right kidney measuring 14 cm and left measuring 15 cm. There was no evidence of mass, stone, or hydronephrosis. Urinary bladder has a normal appearance. ASSESSMENT: 1. Acute renal failure: This most likely is due to vancomycin nephrotoxicity, given that the patient had markedly elevated vancomycin trough on May 04, the same day creatinine started trending up. Also, the patient received Zosyn. Studies have shown that the combination is at high risk for vancomycin induced nephrotoxicity. Contribution from volume depletion cannot be ruled out as the patient seems to be on the dry side. He is on diuretic. However, the patient was on diuretics the same dose prior to hospitalization and renal function was normal with creatinine ranging from 0.9 to 1.0. The patient has not received any other nephrotoxic agent. There is no lisinopril on the med list and he has not received any contrast study. 2. Hypertension: Control is acceptable. 3. Type 2 diabetes mellitus. Glycemic control is acceptable. 4. Bradycardia: The patient has an event monitor in place. Cardiology is following. 5. Peripheral artery disease: Thought to be diffuse and involving small arteries, hence not operable. 6. Depression: This seems to be situational. The patient recently lost his and was barely surviving till this event. He seem frustrated that he is still in the hospital. PLAN: 1. We discontinued vancomycin. 2. We will start gentle IV fluid therapy with half-normal saline plus 75 mEq of sodium bicarbonate for 1 L. We will also get urine electrolytes as well as urinalysis. We will discontinue diuretics at this time. We will also hold metformin, given the fact that renal function is markedly reduced. We will also get urine and plasma osmolality. Further treatment to follow depending on hospital course. Many thanks for involving us in the care of this patient. We will follow along with you. Job ID: [id number]
[2019-05-10] MEDS: Ondansetron ODT 4 MG TAB PO PRN ×2 (02:31→17:17)
[2019-05-10] MEDS ORDERED: Loratadine 10 MG TAB PO SCH (03:30)
[2019-05-10] MEDS: glipiZIDE 5 MG TAB PO SCH ×2 (06:15→16:00)
[2019-05-10 06:49] LABS: Albumin 3.5 g/dL (3.4-4.8); Anion Gap 15 mmol/L (10-20); BUN (Urea Nitrogen) 60 mg/dL (8.4-25.7); BUN/Creatinine Ratio 17.19; CK (CPK) 59 U/L (30-200); Calc. Creatinine Clearance 32 mL/min (70-130); Calcium 8.8 mg/dL (7.8-10.44); Carbon Dioxide 23 mmol/L (23-31); Chloride 99 mmol/L (98-107); Estimated GFR-MDRD 18; Glucose 112 mg/dL (80-115); Phosphorus 4.6 mg/dL (2.3-4.7); Potassium 4.1 mmol/L (3.5-5.1); Sodium 133 mmol/L (136-145)
[2019-05-10] MEDS: hydrALAZINE 25 MG TAB PO SCH ×3 (08:04→20:54)
[2019-05-10] MEDS: Saccharomyces boulardii 250 MG CAP PO SCH (08:04)
[2019-05-10] MEDS: Amlodipine 10 MG TAB PO SCH (08:04)
[2019-05-10] MEDS: Heparin 5,000 UNITS/ML VIAL SC SCH ×2 (08:04→20:57)
[2019-05-10] MEDS: Aspirin 325 mg Enteric Coated Tablet PO SCH (08:04)
[2019-05-10] MEDS: diphenhydrAMINE 50 MG/ML VIAL IVP PRN (10:41)
[2019-05-10] MEDS ORDERED: Ketotifen Fumarate 0.025% Ophth Soln 5 ml Bottle L EYE SCH (11:00)
[2019-05-10] MEDS ORDERED: Fluticasone Propionate Nasal Spray 16 gm Bottle NASAL SCH (11:00)
[2019-05-10] MEDS: Sodium Chloride 0.9% 1,000 ML IV SCH ×2 (13:01→20:52)
--- NOTE | 2019-05-10 13:42 | PRG ---
DATE OF SERVICE: 05/10/2019 SERVICE: Nephrology. SUBJECTIVE: A 69-year-old male, admitted with left foot nonhealing wound and cellulitis. Nephrology is following the patient for acute renal failure. No new problem. The patient, however, had left eye swelling, which is resolving at this point. Denied nausea, vomiting, or shortness of breath. OBJECTIVE: VITAL SIGNS: Temperature 97.8, pulse 71, respiratory rate 19, SpO2 of 95% on room air, and blood pressure is 163/71. GENERAL: Obese male, in no obvious distress. Afebrile. Anicteric. Acyanotic. HEENT: Normocephalic, atraumatic. Oral mucosa is moist. Mild left periorbital swelling. NECK: Supple, nontender with no JVD or masses. CARDIOVASCULAR: Regular rhythm and rate with normal heart sounds 1 and 2. RESPIRATORY: Fair air entry bilaterally with few crackles/transmitted breath sounds. No rhonchi or use of accessory muscles appreciated. GI: Obese, soft, nontender, nondistended with normal bowel sounds. EXTREMITIES: Mild bilateral leg edema noted. Left feet dressing noted as well. PIPING ENGINEER: Conscious, alert, oriented x3 with appropriate mental status. DIAGNOSTIC DATA: Renal function panel today showed sodium 133, potassium 4.1, chloride 99, CO2 of 23, BUN 60, creatinine 3.49, glucose 112, calcium 8.8, phosphorus 4.6, and albumin 3.5. Urinalysis was unremarkable with pH of 5.0, specific gravity of 1.011, negative ketone, blood, nitrite, bilirubin, and leukocyte esterase. Microscopy showed 0 to 3 rbc and 0 to 3 wbc. Urine osmolality is 294 while serum osmolality is 296. Total random urine protein is 21 mg/dL. Urine creatinine is 132, urine sodium less than 20, and urine urea nitrogen 448 with fractional excretion of urea being 20% and fractional excretion of sodium being 0.6. ASSESSMENT: 1. Acute renal failure: Thought to be due to vancomycin nephrotoxicity. Fractional excretion of urea and sodium of 20 and 0.6 is consistent with prerenal etiology, which may be confounding. BUN and creatinine went down crystalloid. The patient, however, developed mild edema. We will give additional liter of normal saline today and monitor renal function. We will avoid nephrotoxic agents. 2. Hyponatremia: This is most likely due to appropriate ADH, due to volume contraction as well as some degree of syndrome of inappropriate antidiuretic hormone secretion related to thiazide diuretic use. The patient is currently off thiazide. We will monitor sodium level with crystalloid. 3. Hypertension: Control is fair but suboptimal. It is expected to improve with discontinuation of crystalloids. However, we should avoid RAAS carlota and thiazide diuretic at this time. We can substitute amlodipine with nifedipine to get better blood pressure control. 4. Left foot osteomyelitis and wound: Treatment as per primary attending. The patient is now off vancomycin and getting Teflaro. Job ID: [id number]
--- NOTE | 2019-05-10 15:54 | PDOC.HOSPP ---
- Subjective Subjective: Seen and examined. Patient with left eye swelling and conjunctival injection. Symptomatic therapy has been done by RN appropriately including warm compress and flushing with normal saline. I added antihistamine eyedrops. Patient also with profuse watery discharge from both eyes and watery rhinorrhea. This may be a viral process. Patient is clinically depressed. Starting anti depressant medication. Patient is grieving from the loss of his three months ago. Patient emotionally labile and tearful in the room. I offered emotional support. 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 Will consult spiritual care and palliative for emotional support and coping strategies. Renal function improved with help from nephrology, recs appreciated. - Objective Vital Signs & Weight: Vital Signs (12 hours) Temp Pulse Resp BP Pulse Ox 05/10/19 08:00 95 05/10/19 07:59 97.8 F 71 19 163/71 H 95 Weight Admit Weight 226 lb 1.6 oz Weight 242 lb 4.8 oz I&O: 05/09/19 05/10/19 05/11/19 06:59 06:59 05:59 Intake Total 730 1170 Output Total 900 Balance 730 270 Result Diagrams: 05/04/19 04:25 05/10/19 06:10 Additional Labs: Accuchecks 05/10/19 05/09/19 05/09/19 04:10 20:32 17:17 POC Glucose 122 H 129 H 91 Radiology Reviewed by me: Yes Hospitalist ROS - Review of Systems All other systems reviewed; all pertinent +/- noted in HPI/Subj - Medication Medications: Active Medications Generic Name Dose Route Start Last Admin Trade Name Freq PRN Reason Stop Dose Admin Acetaminophen 650 mg 05/01/19 22:24 05/04/19 20:43 Tylenol PO 650 mg Q4H PRN Administration Headache/Fever/Mild Pain (1-3) Amlodipine Besylate 10 mg 05/03/19 09:00 05/10/19 08:04 Norvasc PO 10 mg DAILY DEWAYNE Administration Aspirin 325 mg 05/02/19 09:00 05/10/19 08:04 Ecotrin PO 325 mg DAILY DEWAYNE Administration Diphenhydramine HCl 25 mg 05/10/19 10:06 05/10/19 10:41 Benadryl IVP 25 mg Q4H PRN Administration Allergies Glipizide 5 mg 05/04/19 16:30 05/10/19 06:15 Glucotrol PO 5 mg BID-AC DEWAYNE Administration Heparin Sodium (Porcine) 5,000 units 05/05/19 09:00 05/10/19 08:04 Heparin SC 5,000 units BID DEWAYNE Administration Hydralazine HCl 75 mg 05/06/19 21:00 05/10/19 08:04 Apresoline PO 75 mg TID DEWAYNE Administration Ceftaroline Fosamil 300 mg/ 100 mls @ 100 mls/hr 05/09/19 18:00 05/10/19 06: 13 Sodium Chloride IVPB 100 mls 0600,1800 DEWAYNE Administration Sodium Chloride 1,000 mls @ 125 mls/hr 05/10/19 12:15 05/10/19 13:01 Normal Saline 0.9% IV 1,000 mls .Q8H DEWAYNE Administration Insulin Human Regular 0 units 05/01/19 22:24 05/08/19 13:08 Humulin R SC 3 unit .MILD SLIDING SCALE PRN Administration Mild Correctional Scale Insulin Human Regular 0 units 05/01/19 22:24 05/06/19 21:37 Humulin R SC 2 unit .BEDTIME SLIDING SC PRN Administration Bedtime Correctional Scale Ondansetron HCl 4 mg 05/01/19 22:24 05/10/19 02:31 Zofran Odt PO 4 mg Q6H PRN Administration Nausea/Vomiting Saccharomyces Boulardii 250 mg 05/02/19 09:00 05/10/19 08:04 Florastor PO 250 mg DAILY DEWAYNE Administration Sodium Chloride 10 ml 05/01/19 22:24 05/04/19 20:45 Flush - Normal Saline IVF 10 ml PRN PRN Administration Saline Flush - Exam General Appearance: NAD Eye: anicteric sclera ENT: no oropharyngeal lesions, moist mucosa Neck: supple, symmetric, no lymphadenopathy Heart: no murmur, no gallops, no rubs Respiratory: CTAB, no wheezes, no rales, no ronchi, normal chest expansion Gastrointestinal: soft, non-tender, non-distended, no palpable masses, no guarding, no rigidity Extremities: 1+ LE edema Skin: no rashes Skin - other findings: Wound vac LE in position Neurological: cranial nerve grossly intact, no weakness Musculoskeletal: generalized weakness Psychiatric: A&O x 3 Psychiatric - other findings: Depressed mood Hosp A/P (1) 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 Code(s): E11.610 - TYPE 2 DIABETES MELLITUS W DIABETIC NEUROPATHIC ARTHROPATHY Status: Acute (2) Diabetes mellitus Code(s): E11.9 - TYPE 2 DIABETES MELLITUS WITHOUT COMPLICATIONS Status: Acute (3) HTN (hypertension) Code(s): I10 - ESSENTIAL (PRIMARY) HYPERTENSION Status: Acute (4) Hyperkalemia Code(s): E87.5 - HYPERKALEMIA Status: Acute (5) Non-healing ulcer of left foot Code(s): L97.529 - NON-PRESSURE CHRONIC ULCER OTH PRT LEFT FOOT W UNSP SEVERITY Status: Acute (6) Osteomyelitis of left foot Code(s): M86.9 - OSTEOMYELITIS, UNSPECIFIED Status: Acute (7) PAD (peripheral artery disease) Code(s): I73.9 - PERIPHERAL VASCULAR DISEASE, UNSPECIFIED Status: Acute - Plan Plan: medical unit Nephrology consultation, recommendations appreciated infectious disease consultation, recommendations appreciated general surgery consultation, recommendations appreciated Renal US negative for obstruction Avoid nephrotoxic medications as able status post amputation for osteomyelitis wound vac in position ABX per ID continue other home medications is able continue cardiomyopathy regimen cardiomyopathy with ejection fraction 45% D/c Lasix, lighten fluid restriction with KENZIE Start Zoloft for depression Start Antihistamine eye drops for erythema/ irritation Benadryl PRN for allergic symptoms of the eye Eye swelling now likely related to antibiotics, case discussed with ID
[2019-05-10] MEDS: Sodium Bicarbonate Tab 325 MG TAB PO SCH ×2 (16:00→20:56)
[2019-05-10] MEDS: Ketotifen Fumarate 0.025% Ophth Soln 5 ml Bottle L EYE SCH (20:58)
[2019-05-10] MEDS: Fluticasone Propionate Nasal Spray 16 gm Bottle NASAL SCH (20:58)
[2019-05-10] MEDS: Insulin Regular 300 UNITS/3 ML VIAL SC PRN (22:42)
[2019-05-11] MEDS: Sodium Chloride 0.9% 1,000 ML IV SCH ×2 (05:22→08:21)
[2019-05-11] MEDS: Ondansetron ODT 4 MG TAB PO PRN (05:38)
[2019-05-11] MEDS: diphenhydrAMINE 50 MG/ML VIAL IVP PRN (05:41)
[2019-05-11 06:53] LABS: #Basophils 0.1 thou/uL (0.0-0.2); #Eosinphils 0.2 thou/uL (0.0-0.7); #Neutrophils 10.7 thou/uL (1.40-6.50); %Basophils 0.6 % (0.0-1.0); %Eosinophils 1.7 % (0.0-10.0); %Lymphocytes 7.7 % (21.0-51.0); %Monocytes 7.5 % (0.0-10.0); %Neutrophils 82.5 % (42.0-75.0); Hemoglobin 11.6 g/dL (14.0-18.0); Mean Corpuscular HGB CONC 33.5 g/dL (32.0-36.0); Mean Corpuscular Hemoglobin 29.2 pg (27.0-31.0); Mean Corpuscular Volume 87.1 fL (78.0-98.0); Mean Platelet Volume 8.4 fL (7.4-10.4); Platelet Count 293 thou/uL (130-400); RBC Distribution Width 13.1 % (11.5-14.5); White Blood Cell (WBC) Count 12.9 thou/uL (4.8-10.8)
[2019-05-11 07:13] LABS: Albumin 3.5 g/dL (3.4-4.8); Anion Gap 15 mmol/L (10-20); BUN (Urea Nitrogen) 64 mg/dL (8.4-25.7); BUN/Creatinine Ratio 18.44; Calc. Creatinine Clearance 32 mL/min (70-130); Calcium 8.9 mg/dL (7.8-10.44); Carbon Dioxide 23 mmol/L (23-31); Chloride 101 mmol/L (98-107); Estimated GFR-MDRD 18; Glucose 142 mg/dL (80-115); Phosphorus 4.9 mg/dL (2.3-4.7); Potassium 4.4 mmol/L (3.5-5.1); Sodium 135 mmol/L (136-145)
[2019-05-11] MEDS: Aspirin 325 mg Enteric Coated Tablet PO SCH (08:20)
[2019-05-11] MEDS: Sodium Bicarbonate Tab 325 MG TAB PO SCH ×3 (08:20→20:42)
[2019-05-11] MEDS: Amlodipine 10 MG TAB PO SCH (08:20)
[2019-05-11] MEDS: hydrALAZINE 25 MG TAB PO SCH ×3 (08:21→20:43)
[2019-05-11] MEDS: Heparin 5,000 UNITS/ML VIAL SC SCH ×2 (08:21→20:43)
[2019-05-11] MEDS: Saccharomyces boulardii 250 MG CAP PO SCH (08:21)
[2019-05-11] MEDS: glipiZIDE 5 MG TAB PO SCH ×2 (08:21→14:44)
[2019-05-11] MEDS: Loratadine 10 MG TAB PO SCH (08:21)
[2019-05-11] MEDS: Ketotifen Fumarate 0.025% Ophth Soln 5 ml Bottle L EYE SCH ×2 (08:22→20:41)
[2019-05-11] MEDS: Fluticasone Propionate Nasal Spray 16 gm Bottle NASAL SCH ×2 (08:22→20:42)
--- NOTE | 2019-05-11 10:01 | PDOC.HOSPP ---
- Subjective Subjective: Seen and examined. I is less swollen. He did have some crusting this morning which is concerning for viral conjunctivitis. This did improve with a warm compress. Patient feels profoundly weak and states that he doesn't have the strength to shave himself. I asked the patient if it would be okay if I called his son and give him a status update, he states that that is okay. I attempted to call the son twice at [phone], this number has been disconnected. Will ask nursing staff to have the patient provide an alternative number. - Objective Vital Signs & Weight: Vital Signs (12 hours) Temp Pulse Resp BP BP Pulse Ox 05/11/19 08:21 66 124/69 05/11/19 08:20 66 124/69 05/11/19 08:00 97.8 F 66 16 124/69 93 L Weight Admit Weight 226 lb 1.6 oz Weight 242 lb 4.8 oz I&O: 05/10/19 05/11/19 05/12/19 07:59 06:59 06:59 Intake Total Output Total Balance Result Diagrams: 05/11/19 05:32 05/11/19 05:32 Additional Labs: Accuchecks 05/11/19 05/10/19 05/10/19 05:27 21:19 15:53 POC Glucose 143 H 213 H 158 H 05/10/19 12:48 POC Glucose 169 H Radiology Reviewed by me: Yes Hospitalist ROS - Review of Systems All other systems reviewed; all pertinent +/- noted in HPI/Subj - Medication Medications: Active Medications Generic Name Dose Route Start Last Admin Trade Name Freq PRN Reason Stop Dose Admin Acetaminophen 650 mg 05/01/19 22:24 05/04/19 20:43 Tylenol PO 650 mg Q4H PRN Administration Headache/Fever/Mild Pain (1-3) Amlodipine Besylate 10 mg 05/03/19 09:00 05/11/19 08:20 Norvasc PO 10 mg DAILY DEWAYNE Administration Aspirin 325 mg 05/02/19 09:00 05/11/19 08:20 Ecotrin PO 325 mg DAILY DEWAYNE Administration Diphenhydramine HCl 25 mg 05/10/19 10:06 05/11/19 05:41 Benadryl IVP 25 mg Q4H PRN Administration Allergies Fluticasone Propionate 0 gm 05/10/19 21:00 05/11/19 08:22 Flonase Nasal [place] NASAL 1 spr BID DEWAYNE Administration Glipizide 5 mg 05/04/19 16:30 05/11/19 08:21 Glucotrol PO 5 mg BID-AC DEWAYNE Administration Heparin Sodium (Porcine) 5,000 units 05/05/19 09:00 05/11/19 08:21 Heparin SC 5,000 units BID DEWAYNE Administration Hydralazine HCl 75 mg 05/06/19 21:00 05/11/19 08:21 Apresoline PO 75 mg TID DEWAYNE Administration Ceftaroline Fosamil 300 mg/ 100 mls @ 100 mls/hr 05/09/19 18:00 05/11/19 05: 21 Sodium Chloride IVPB 100 mls 0600,1800 DEWAYNE Administration Sodium Chloride 1,000 mls @ 125 mls/hr 05/10/19 12:15 05/11/19 08:21 Normal Saline 0.9% IV 1,000 mls .Q8H DEWAYNE Administration Insulin Human Regular 0 units 05/01/19 22:24 05/08/19 13:08 Humulin R SC 3 unit .MILD SLIDING SCALE PRN Administration Mild Correctional Scale Insulin Human Regular 0 units 05/01/19 22:24 05/10/19 22:42 Humulin R SC 2 unit .BEDTIME SLIDING SC PRN Administration Bedtime Correctional Scale Ketotifen Fumarate 1 drop 05/10/19 21:00 05/11/19 08:22 Zaditor 0.025% Ophth Soln L EYE 1 drop BID DEWAYNE Administration Loratadine 10 mg 05/11/19 09:00 05/11/19 08:21 Claritin PO 10 mg DAILY DEWAYNE Administration Ondansetron HCl 4 mg 05/01/19 22:24 05/11/19 05:38 Zofran Odt PO 4 mg Q6H PRN Administration Nausea/Vomiting Saccharomyces Boulardii 250 mg 05/02/19 09:00 05/11/19 08:21 Florastor PO 250 mg DAILY DEWAYNE Administration Sertraline HCl 50 mg 05/11/19 09:00 05/11/19 08:21 Zoloft PO 50 mg DAILY DEWAYNE Administration Sodium Bicarbonate 650 mg 05/10/19 15:00 05/11/19 08:20 Bicarbonate, Sodium PO 650 mg TID DEWAYNE Administration Sodium Chloride 10 ml 05/01/19 22:24 05/04/19 20:45 Flush - Normal Saline IVF 10 ml PRN PRN Administration Saline Flush - Exam General Appearance: NAD, awake alert Eye: anicteric sclera ENT: normocephalic atraumatic, no oropharyngeal lesions Neck: supple, symmetric, no lymphadenopathy Heart: no murmur, no gallops, no rubs Respiratory: CTAB, no wheezes, no rales, no ronchi, normal chest expansion Gastrointestinal: soft, non-tender, no guarding, no rigidity Extremities: 1+ LE edema Skin: normal turgor, no lesions, no rashes Neurological: cranial nerve grossly intact, normal sensation to touch, no focal deficits Musculoskeletal: generalized weakness Psychiatric: normal affect, A&O x 3 Hosp A/P (1) 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 Code(s): E11.610 - TYPE 2 DIABETES MELLITUS W DIABETIC NEUROPATHIC ARTHROPATHY Status: Acute (2) Diabetes mellitus Code(s): E11.9 - TYPE 2 DIABETES MELLITUS WITHOUT COMPLICATIONS Status: Acute (3) HTN (hypertension) Code(s): I10 - ESSENTIAL (PRIMARY) HYPERTENSION Status: Acute (4) Hyperkalemia Code(s): E87.5 - HYPERKALEMIA Status: Acute (5) Non-healing ulcer of left foot Code(s): L97.529 - NON-PRESSURE CHRONIC ULCER OTH PRT LEFT FOOT W UNSP SEVERITY Status: Acute (6) Osteomyelitis of left foot Code(s): M86.9 - OSTEOMYELITIS, UNSPECIFIED Status: Acute (7) PAD (peripheral artery disease) Code(s): I73.9 - PERIPHERAL VASCULAR DISEASE, UNSPECIFIED Status: Acute - Plan Plan: medical unit Nephrology consultation, recommendations appreciated infectious disease consultation, recommendations appreciated general surgery consultation, recommendations appreciated Renal US negative for obstruction Avoid nephrotoxic medications as able status post amputation for osteomyelitis wound vac in position ABX per ID continue other home medications is able continue cardiomyopathy regimen cardiomyopathy with ejection fraction 45% D/c Lasix, lighten fluid restriction with KENZIE Continue Zoloft for depression Continue Antihistamine eye drops for erythema/ irritation Benadryl PRN for allergic symptoms of the eye Warm compresses as needed for eye crusting Eye swelling NOT likely related to antibiotics, case discussed with ID
--- NOTE | 2019-05-11 15:09 | PRG ---
DATE OF SERVICE: 05/11/2019 SERVICE: Nephrology. SUBJECTIVE: A 69-year-old male with known history of diabetes and chronic peripheral artery disease, amongst others, who was admitted due to left foot nonhealing wound and osteomyelitis. Nephrology is following the patient for acute renal failure. On presentation, creatinine was 1.05, but has trended up to a peak of 3.75. No new problem. Denied shortness of breath, nausea, or vomiting. The patient still feels depressed and frustrated that he is still in the hospital. He desires to be discharged. OBJECTIVE: VITAL SIGNS: Temperature 97.8, pulse 66, respiratory rate 16, SpO2 of 93% on room air, and blood pressure is 124/69. GENERAL: Obese male, in no obvious distress. Afebrile. Anicteric. Acyanotic. HEENT: Normocephalic and atraumatic. Oral mucosa is moist. NECK: No JVD appreciated. CARDIOVASCULAR: Regular rhythm and rate with normal heart sounds 1 and 2. RESPIRATORY: Fair air entry bilaterally with bibasilar crackles. GI: Obese, soft, nontender, nondistended with normal bowel sounds. EXTREMITIES: Left foot covered with dressing. Mild bilateral leg edema noted. Left upper limb PICC line and some edema noted as well. MENTAL HEALTH NURSE PRACTITIONER: Conscious, alert, oriented x3 with appropriate mental status. DIAGNOSTIC DATA: CBC showed WBC count of 12.9, hemoglobin of 11.6, MCV of 87.1, and platelets of 293. Renal function panel showed sodium 135, potassium 4.4, chloride 101, CO2 of 23, BUN 64, creatinine 3.47, glucose 142, calcium 8.9, phosphorus 4.9, and albumin 3.5. ASSESSMENT: 1. Acute renal failure: This most likely due to vancomycin-induced nephrotoxicity. Treatment with crystalloid did not provide any significant improvement in renal function. He is now 48 hours since discontinuation of vancomycin, and there has been no significant improvement. One wonders if there is other etiologies causing the acute kidney injury. 2. Mild volume overload. 3. Hypertension: Control is acceptable. 4. Left foot osteomyelitis. PLAN: 1. We will discontinue IV fluid therapy. 2. We will also get C3 and C4. 3. We will also get renal biopsy to ascertain the true nature of acute kidney injury if this could be arranged. The problem is the patient has had aspirin. If biopsy could not be obtained, the patient can be discharged once an appointment is made for him to come from home to get the renal biopsy. We will monitor the patient closely for renal recovery while awaiting for renal pathology. 4. Continue antibiotics as directed by Infectious Diseases. Job ID: [id number]
--- NOTE | 2019-05-11 15:33 | PRG ---
DATE OF SERVICE: 05/11/2019 SUBJECTIVE: Mr. Carroll had some issues with his eyes and rhinorrhea. Those were fixed with antihistaminics yesterday. He has been evaluated by Nephrology and a kidney biopsy is planned for tomorrow. OBJECTIVE: VITAL SIGNS: His temperature has been normal. His BP 160/70. GENERAL: Awake, alert, and oriented. HEENT: The areas of conjunctivitis have improved. Ocular movements are conjugate. LUNGS: Clear. HEART: S1-S2 regular rate. ABDOMEN: Soft and not distended. EXTREMITIES: The foot is unchanged. LABORATORY DATA: White cell count 12.9, hemoglobin 11.6, and platelets 293. Creatinine is down from 3.75 to 3.47, and microbiology with the MRSA, strep mitis, and peptostreptococcus from the foot. ASSESSMENT AND DISCUSSION: Type 2 diabetes, peripheral vascular disease, Charcot arthropathy, neuropathy, chronic ulcer in the foot with osteomyelitis on MRI, worsening renal function, unclear etiology. There is concern with the possibility of nephrotoxicity from the combination of vancomycin and Zosyn. The patient has been on ceftaroline to be continued at adjusted dosing. Discharge planning depending on the completion of the workup for his kidneys. He would need then a PICC line placement and then establishment of outpatient therapy. The end date of therapy would be about mid June. Followup labs. Drug to be used, this can be either daptomycin or ceftaroline. Job ID: [id number]
[2019-05-12 06:08] LABS: PTT 37.7 SEC (22.9-36.1); Prothrombin Time 13.6 SEC (12.0-14.7)
[2019-05-12 06:24] LABS: Albumin 3.6 g/dL (3.4-4.8); Anion Gap 14 mmol/L (10-20); BUN (Urea Nitrogen) 70 mg/dL (8.4-25.7); Calc. Creatinine Clearance 31 mL/min (70-130); Carbon Dioxide 22 mmol/L (23-31); Chloride 101 mmol/L (98-107); Estimated GFR-MDRD 17; Glucose 150 mg/dL (80-115); Potassium 4.4 mmol/L (3.5-5.1); Sodium 133 mmol/L (136-145)
[2019-05-12] MEDS: glipiZIDE 5 MG TAB PO SCH ×2 (08:12→17:46)
[2019-05-12] MEDS: Saccharomyces boulardii 250 MG CAP PO SCH (08:13)
[2019-05-12] MEDS: Sodium Bicarbonate Tab 325 MG TAB PO SCH ×3 (08:13→20:14)
[2019-05-12] MEDS: Amlodipine 10 MG TAB PO SCH (08:13)
[2019-05-12] MEDS: Fluticasone Propionate Nasal Spray 16 gm Bottle NASAL SCH ×2 (08:15→20:15)
[2019-05-12] MEDS: Ketotifen Fumarate 0.025% Ophth Soln 5 ml Bottle L EYE SCH ×2 (08:16→20:14)
[2019-05-12] MEDS: Heparin 5,000 UNITS/ML VIAL SC SCH ×2 (09:36→20:14)
[2019-05-12] MEDS: hydrALAZINE 25 MG TAB PO SCH ×3 (09:36→20:14)
[2019-05-12] MEDS: Loratadine 10 MG TAB PO SCH (09:38)
--- NOTE | 2019-05-12 10:47 | PDOC.HOSPP ---
- Subjective Subjective: Seen and examined. Patient states that he does not want to do renal biopsy. Patient occasionally getting nauseated and dry heaving, no appetite yesterday. Today's feeling a little bit better. No nausea or vomiting this a.m. currently. Renal function mildly worsening. - Objective Vital Signs & Weight: Vital Signs (12 hours) Temp Pulse Resp BP Pulse Ox 05/12/19 08:00 98.2 F 66 18 165/67 H 93 L Weight Admit Weight 226 lb 1.6 oz Weight 242 lb 4.8 oz I&O: 05/11/19 05/12/19 05/13/19 06:59 06:59 06:59 Intake Total 1190 Output Total Balance 1190 Result Diagrams: 05/11/19 05:32 05/12/19 05:42 Additional Labs: Accuchecks 05/12/19 05/11/19 05/11/19 04:32 19:55 16:26 POC Glucose 162 H 206 H 219 H 05/11/19 12:54 POC Glucose 210 H Radiology Reviewed by me: Yes Hospitalist ROS - Review of Systems All other systems reviewed; all pertinent +/- noted in HPI/Subj - Medication Medications: Active Medications Generic Name Dose Route Start Last Admin Trade Name Freq PRN Reason Stop Dose Admin Acetaminophen 650 mg 05/01/19 22:24 05/04/19 20:43 Tylenol PO 650 mg Q4H PRN Administration Headache/Fever/Mild Pain (1-3) Amlodipine Besylate 10 mg 05/03/19 09:00 05/12/19 08:13 Norvasc PO 10 mg DAILY DEWAYNE Administration Diphenhydramine HCl 25 mg 05/10/19 10:06 05/11/19 05:41 Benadryl IVP 25 mg Q4H PRN Administration Allergies Fluticasone Propionate 0 gm 05/10/19 21:00 05/12/19 08:15 Flonase Nasal [place] NASAL 1 spr BID DEWAYNE Administration Glipizide 5 mg 05/04/19 16:30 05/12/19 08:12 Glucotrol PO 5 mg BID-AC DEWAYNE Administration Heparin Sodium (Porcine) 5,000 units 05/05/19 09:00 05/12/19 09:36 Heparin SC 5,000 units BID DEWAYNE Administration Hydralazine HCl 75 mg 05/06/19 21:00 05/12/19 09:36 Apresoline PO 75 mg TID DEWAYNE Administration Ceftaroline Fosamil 300 mg/ 100 mls @ 100 mls/hr 05/09/19 18:00 05/12/19 08: 15 Sodium Chloride IVPB 100 mls 0600,1800 DEWAYNE Administration Insulin Human Regular 0 units 05/01/19 22:24 05/08/19 13:08 Humulin R SC 3 unit .MILD SLIDING SCALE PRN Administration Mild Correctional Scale Insulin Human Regular 0 units 05/01/19 22:24 05/10/19 22:42 Humulin R SC 2 unit .BEDTIME SLIDING SC PRN Administration Bedtime Correctional Scale Ketotifen Fumarate 1 drop 05/10/19 21:00 05/12/19 08:16 Zaditor 0.025% Ophth Soln L EYE 1 drop BID DEWAYNE Administration Loratadine 10 mg 05/11/19 09:00 05/12/19 09:38 Claritin PO 10 mg DAILY DEWAYNE Administration Ondansetron HCl 4 mg 05/01/19 22:24 05/11/19 05:38 Zofran Odt PO 4 mg Q6H PRN Administration Nausea/Vomiting Saccharomyces Boulardii 250 mg 05/02/19 09:00 05/12/19 08:13 Florastor PO 250 mg DAILY DEWAYNE Administration Sertraline HCl 50 mg 05/11/19 09:00 05/12/19 08:13 Zoloft PO 50 mg DAILY DEWAYNE Administration Sodium Bicarbonate 650 mg 05/10/19 15:00 05/12/19 08:13 Bicarbonate, Sodium PO 650 mg TID DEWAYNE Administration Sodium Chloride 10 ml 05/01/19 22:24 05/12/19 09:38 Flush - Normal Saline IVF 10 ml PRN PRN Administration Saline Flush - Exam General Appearance: NAD, awake alert Eye: PERRL ENT: normocephalic atraumatic, moist mucosa Neck: supple, symmetric, no lymphadenopathy Heart: no murmur, no gallops, no rubs Respiratory: CTAB, no wheezes, no rales, no ronchi Gastrointestinal: soft, non-tender, no guarding, no rigidity Extremities: no edema Skin: no lesions, no rashes Skin - other findings: Wound vac in position 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 Code(s): E11.610 - TYPE 2 DIABETES MELLITUS W DIABETIC NEUROPATHIC ARTHROPATHY Status: Acute (2) Diabetes mellitus Code(s): E11.9 - TYPE 2 DIABETES MELLITUS WITHOUT COMPLICATIONS Status: Acute (3) HTN (hypertension) Code(s): I10 - ESSENTIAL (PRIMARY) HYPERTENSION Status: Acute (4) Hyperkalemia Code(s): E87.5 - HYPERKALEMIA Status: Acute (5) Non-healing ulcer of left foot Code(s): L97.529 - NON-PRESSURE CHRONIC ULCER OTH PRT LEFT FOOT W UNSP SEVERITY Status: Acute (6) Osteomyelitis of left foot Code(s): M86.9 - OSTEOMYELITIS, UNSPECIFIED Status: Acute (7) PAD (peripheral artery disease) Code(s): I73.9 - PERIPHERAL VASCULAR DISEASE, UNSPECIFIED Status: Acute - Plan Plan: medical unit Nephrology consultation, recommendations appreciated infectious disease consultation, recommendations appreciated general surgery consultation, recommendations appreciated Palliative care consultation, recommendations appreciated - grieving from the recent loss of his , code status should be addressed Patient refusing renal biopsy Renal US negative for obstruction Avoid nephrotoxic medications as able D/c Lasix, lighten fluid restriction with KENZIE status post amputation for osteomyelitis wound vac in position ABX per ID continue other home medications as able continue cardiomyopathy regimen cardiomyopathy with ejection fraction 45% Continue Zoloft for depression Continue Antihistamine eye drops for erythema/ irritation Benadryl PRN for allergic symptoms of the eye Warm compresses as needed for eye crusting Eye swelling NOT likely related to antibiotics, case discussed with ID
--- NOTE | 2019-05-12 12:05 | PRG ---
DATE OF SERVICE: 05/12/2019 SERVICE: Nephrology. SUBJECTIVE: A 69-year-old male, admitted due to left foot osteomyelitis and nonhealing wound. Nephrology has seen the patient for acute renal failure. The patient desires to go home. Denied nausea, vomiting, or abdominal pain. OBJECTIVE: VITAL SIGNS: Temperature 98.2, pulse 66, respiratory rate 18, SpO2 of 93% on room air, blood pressure is 165/67. GENERAL: Obese male, in no obvious distress. Afebrile. Anicteric. Acyanotic. HEENT: Normocephalic and atraumatic. Oral mucosa is moist. CARDIOVASCULAR: Regular rhythm and rate with normal heart sounds 1 and 2. RESPIRATORY: Fair air entry bilaterally with few bibasilar crackles. GI: Obese, soft, nontender, nondistended with normal bowel sounds. EXTREMITIES: Trace left leg edema. Left foot is covered with dressing. TRAVEL WRITER: Conscious, alert, oriented x3 with appropriate mental status. Cranial nerves 2 through 12 are grossly intact. DIAGNOSTIC DATA: Renal function panel showed sodium 133, potassium 4.4, chloride 101, CO2 of 22, BUN 70, creatinine 3.59, glucose 150, calcium 9.0, phosphorus 5.0, albumin 3.6. ASSESSMENT: 1. Acute renal failure: Etiology is unclear. AIN and oral vancomycin induced nephrotoxicity. Tubular necrosis remains a concern. Creatinine is not improving even with discontinuation of vancomycin. The patient is currently on ceftaroline other antibiotics can cause AIN. Blood pressure has been adequate and there has been no history of hypotension. Planned renal biopsy today could not take place as the patient has been on aspirin up to yesterday. 2. Hypertension: Control is fair, but suboptimal. 3. Left foot osteomyelitis, on antibiotics. PLAN: 1. The patient can be discharged from Nephrology point of view today. He, however, needs close followup. We will plan on getting repeat renal function panel on May 16. Arrangement has been made for the patient to have renal biopsy on May 19, and some arrangement has been communicated to the patient. He is also to avoid aspirin until told otherwise after the renal biopsy. 2. Hydralazine dose can be increased to 100 t.i.d. to get adequate BP control. 3. Renal diet is recommended for now until re-evaluated. The patient will follow up at the office 3-5 days after renal biopsy, unless otherwise stated. Job ID: [id number]
[2019-05-12] MEDS: Insulin Regular 300 UNITS/3 ML VIAL SC PRN ×3 (13:16→20:23)
[2019-05-12 13:32] VITALS: BMI 34.7
[2019-05-12] MEDS: Ondansetron PF 4 MG/2 ML Vial IVP PRN (23:10)
[2019-05-13 06:51] LABS: Albumin 3.5 g/dL (3.4-4.8); Anion Gap 14 mmol/L (10-20); BUN (Urea Nitrogen) 78 mg/dL (8.4-25.7); BUN/Creatinine Ratio 20.58; Calc. Creatinine Clearance 29 mL/min (70-130); Calcium 8.9 mg/dL (7.8-10.44); Carbon Dioxide 23 mmol/L (23-31); Chloride 99 mmol/L (98-107); Estimated GFR-MDRD 16; Glucose 148 mg/dL (80-115); Phosphorus 4.7 mg/dL (2.3-4.7); Potassium 4.4 mmol/L (3.5-5.1); Sodium 132 mmol/L (136-145)
[2019-05-13] MEDS: Heparin 5,000 UNITS/ML VIAL SC SCH (08:07)
[2019-05-13] MEDS: Saccharomyces boulardii 250 MG CAP PO SCH (08:07)
[2019-05-13] MEDS: glipiZIDE 5 MG TAB PO SCH ×2 (08:07→17:13)
[2019-05-13] MEDS: Sodium Bicarbonate Tab 325 MG TAB PO SCH ×2 (08:07→14:13)
[2019-05-13] MEDS: Loratadine 10 MG TAB PO SCH (08:07)
[2019-05-13] MEDS: Fluticasone Propionate Nasal Spray 16 gm Bottle NASAL SCH (08:10)
[2019-05-13] MEDS: hydrALAZINE 25 MG TAB PO SCH ×2 (08:10→14:13)
[2019-05-13] MEDS: Ketotifen Fumarate 0.025% Ophth Soln 5 ml Bottle L EYE SCH (08:11)
[2019-05-13] MEDS: Amlodipine 10 MG TAB PO SCH ×2 (08:11→11:39)
[2019-05-13] MEDS: Ondansetron PF 4 MG/2 ML Vial IVP PRN (08:13)
[2019-05-13] MEDS: Insulin Regular 300 UNITS/3 ML VIAL SC PRN (11:39)
--- NOTE | 2019-05-13 12:04 | PRG ---
DATE OF SERVICE: 05/13/2019 SERVICE: Nephrology. SUBJECTIVE: A 69-year-old patient with known history of diabetes and nonhealing left foot ulcer, admitted due to osteomyelitis and nonhealing wound. Nephrology has seen the patient for acute kidney injury. The patient denied nausea, vomiting, shortness of breath, chest pain, or change in bowel habit. He also denied fever. Continues to get antibiotics. Still distraught that he is still in the hospital. OBJECTIVE: VITAL SIGNS: Temperature 97.3, pulse 75, respiratory rate 16, SpO2 of 95% on room air, and blood pressure is 140/54. GENERAL: Obese male, in no obvious distress. Afebrile. Anicteric. Acyanotic. HEENT: Normocephalic, atraumatic. Oral mucosa is moist. CARDIOVASCULAR: Regular rhythm and rate with normal heart sounds 1 and 2. RESPIRATORY: Fair air entry bilaterally with few bibasilar crackles. No rhonchi or use of accessory muscles appreciated. GASTROINTESTINAL: Obese, soft, nontender, nondistended with normal bowel sounds. EXTREMITIES: Mild right and moderate left leg edema noted. Left foot covered with dressing. No erythema appreciated. CENTRAL NERVOUS SYSTEM: Conscious and alert and oriented x3 with appropriate mental status. Cranial nerves II through XII are grossly intact. DIAGNOSTIC DATA: Renal function panel today showed sodium 132, potassium 4.4, chloride 99, CO2 of 23, BUN 78, creatinine 3.79, glucose 148, calcium 8.9, phosphorus 4.7, and albumin 3.5. Complements: C3 of 142, C2 of 33. ASSESSMENT: 1. Acute renal failure. Etiology is unclear, but seems to be multifactorial with either AIN and vancomycin-induced nephrotoxicity Interplaying with possible acute tubular necrosis. Creatinine continues to trend upwards. Vancomycin has been discontinued, but there has been no significant improvement in creatinine. Of note, initial urine electrolytes were suggestive of prerenal etiology, but treatment with IV fluid did not improve renal function. The patient is clearly fluid overloaded at this time and there is no indication for further fluid therapy. 2. Hypertension: Control is fair. 3. Left foot osteomyelitis. 4. Volume overload. 5. Diabetes mellitus. PLAN: We will get repeat urinalysis as well as urine electrolytes. Steroid therapy is contemplated for possible AIN. However, given that the patient has osteomyelitis and diabetes, this will encounter productive in this patient or less diagnosis is confirmed. Biopsy plan could still not be obtained due to the further the patient had aspirin on May 11. The earliest we could get renal biopsy will be in 2 days' time. Initial plan was to discharge the patient to have biopsy as an outpatient, however, with worsening edema and renal function that does not improve at this time. We will keep the patient in hospital for close observation. There is no overt evidence of symptomatic fluid overload on pulmonary congestion, hence no need for diuretic at this time. We will repeat renal function in the morning. We will also continue current antibiotic therapy. Other treatment as per primary attending. Job ID: [id number]
[2019-05-13 12:25] VITALS: TEMP 97.6
[2019-05-13 12:26] LABS: Bilirubin Negative (Negative); Blood, Urine Negative (Negative); Clarity Clear (Clear); Glucose, Urine (Dipstick) Normal (Negative); Leukocyte Negative Leu/uL (Negative); Nitrite Negative (Negative); Protein, Urine (Dipstick) 30 mg/dL (Neg-Trace); RBC/HPF 0-3 HPF (0-3); Squamous Epithelial 0-3 HPF (0-3); Urobilinogen Normal mg/dL (Less than 2); WBC/HPF 0-3 HPF (0-3)
[2019-05-13 12:38] LABS: Bacteria/HPF None Seen HPF (None Seen)
[2019-05-13 12:47] LABS: Creatinine, Urine 180.45 mg/dL (63-166); Sodium, Urine Less than 20 mmol/L (Not Available); Urea Nitrogen, Random Urine 515 mg/dl
--- NOTE | 2019-05-13 17:04 | PRG ---
DATE OF SERVICE: SUBJECTIVE: Mr. Carroll is stable, but his kidneys are not getting better. He is able to void. Not much pain. No dyspnea. No vomiting. No diarrhea. OBJECTIVE: VITAL SIGNS: T-max 98.2, blood pressure 150/60, pulse 81, respirations 16 to 20. GENERAL: Appears in no distress. LUNGS: Clear. HEART: S1 and S2. Regular rate. EXTREMITIES: He has 2+ edema in lower extremities. Moves extremities equally. LABORATORY DATA: White cell count 12.9. Two 2 days ago, hemoglobin 11.6, platelets 293 with 82% neutrophils. Creatinine is up again to 3.79, probably the highest he has had all along. ASSESSMENT AND DISCUSSION: Type 2 diabetes, peripheral vascular disease, Charcot arthropathy, neuropathy, chronic ulcer with evidence of osteomyelitis on MRI, acute renal failure of uncertain etiology with concern for nephrotoxicity from drug combination of vancomycin and Zosyn versus acute tubular necrosis versus interstitial nephritis. A biopsy is being considered in view of the worsening of renal function. Continue ceftaroline. Job ID: [id number]
[2019-05-13 18:55] VITALS: BP 156/73
--- NOTE | 2019-05-14 22:22 | PQF ---
JOSE RAMON KENDALL RICHARD D MD [id number] CLINICAL DOCUMENTATION CLARIFICATION FORM: POST DISCHARGE Addendum to original discharge summary date: ____ Late entry note date: __ DATE: 05/14/19 ATTN: Ranjit Travis Please exercise your independent, professional judgment in responding to the clarification form. Clinical indicators are provided on the bottom of this form for your review Can you please further specify the type and depth of debridement? Please check appropriate box(s): [ yes ] Excisional Debridement: [ yes] Excised [ yes ] Cut away [ ] Other: Depth / layer: (deepest layer of debridement): [ ] Skin[ ] SubQ Tissue [ yes] Fascia [ yes ] Muscle [ ] Tendon [ ] Bone Appearance of wound: (e.g., down to fresh bleeding tissue, etc.)___ [ ] Non-excisional Debridement: (Removal by flushing, brushing, chemical, or washing) Depth / layer: (deepest layer of debridement): [ ] Skin[ ] Subcutaneous [ ] Fascia [ ] Muscle [ ] Tendon [ ] Bone [ ] Incision and Drainage only (No Debridement): Depth:[ ] Skin [ ] Subcutaneous [ ] Fascia [ ] Muscle [ ] Tendon [ ] Bone [ ] Escharectomy [ ] Other procedure diagnosis please specify [ ] Unable to determine For continuity of documentation, please document condition throughout progress notes and discharge summary. Thank You. CLINICAL INDICATORS - SIGNS / SYMPTOMS / LABS Op Report 05/02 pg.1- Neuropathic ulcer left foot proximal arch Op Report 05/02 pg.1-MRI Demonstrate osteomyelitis of the cuneiform and navicular bones Op Report 05/02 pg.1- Sharp debridement of surrounding callus and necrotic tissue Op Report 05/02 pg.1- sharp 10 blade scalpel was used to debrided the callus in the surrounding skin at the ulcer base. Op Report 05/02 pg.1- he had some necrotic skin and subcutaneous tissue debrided sharply, very superficial RISK FACTORS DM- Hospitalist PN 06/02 pg.1 CAD-Hospitalist PN 06/02 pg.1 HTN-Hospitalist PN 06/02 pg.1 osteomyelitis-Hospitalist PN 06/02 pg.1 hyperlipidemia- Segura nd P pg.1 TREATMENTS: Infectious consult- Dr. Pelaez 05/08 Debridement- Op report IV Antibiotics- SEP 15 IV Fluids- SEP 15 PICC placement-05/05 Glucagon 1gm IM PRN- SEP 15 Insulin SC- SEP 15 (This form is maintained as a part of the permanent medical record) 2014 [employer], [employer]. All Rights Reserved Stanley [email or web address] [not provided] MTDD
--- NOTE | 2019-05-15 08:39 | DIS ---
DATE OF ADMISSION: 05/01/2019 DATE OF DISCHARGE: 05/13/2019 DISCHARGE DISPOSITION: Home. FOLLOWUP: The patient will follow up with Dr. Pelaez for outpatient antibiotic. ALLERGIES: NO KNOWN DRUG ALLERGIES. [facility] HAS BEEN ARRANGED. THE PATIENT WILL FOLLOW UP WITH DR. NGUYỄN THIS SUNDAY WITH BASIC METABOLIC PROFILE. HE IS ALSO SCHEDULED FOR RENAL BIOPSY NEXT SUNDAY. HE WAS ADVISED TO DISCONTINUE ASPIRIN OR ANY OTHER NSAID. DISCHARGE MEDICATIONS: 1. Amlodipine 10 mg daily. 2. Hydralazine 50 mg every 6 hourly. 3. Lovastatin 40 mg q.p.m. 4. Glipizide 5 mg b.i.d. 5. Aspirin to be held for renal biopsy. 6. Clonidine 0.1 mg twice daily as needed. 7. Daptomycin as scheduled. This will be arranged by Dr. Pelaez' office. 8. Florastor 250 mg daily. 9. Sodium bicarbonate 650 mg 3 times daily for next 5 days. Further refills to be provided by Nephrology. SIGNIFICANT LABORATORY DATA: 1. WBC on admission 15.1. 2. Urine was negative for eosinophil. 3. Creatinine on admission was 1.05, at discharge is 3.79. 4. Sodium 132 on admission. 5. C3 and C4 were negative. 6. Vancomycin trough on 04 May 2019 was 40.7. 7. Hemoglobin A1c 7.4. INPATIENT PROCEDURES: On 02 May 2019, the patient underwent bedside sharp debridement of the surrounding callus and necrotic tissue revealing healthy granulation base without a sinus tract. There was no purulence noted. BRIEF HOSPITAL COURSE: The patient is a 69-year-old white male with diabetes mellitus type 2, hypertension, and coronary artery disease, presented from the [facility] with abnormal MRI. The patient underwent MRI of his lower extremity 2 days before that was consistent with osteomyelitis of the cuboid, lateral, and middle cuneiform. Please refer to the history and physical for further details. The patient was admitted to the medical floor with a diagnosis of left foot infection with osteomyelitis. He was started on broad-spectrum antibiotics. His blood culture remained negative. His lower extremity ultrasound showed significant atherosclerosis disease throughout all major arteries of the left lower extremity with evidence of high-grade arterial occlusive disease with monophasic waveform in all arteries from knees to ankle. A PICC line has been placed. During this hospital course, the patient underwent renal failure with creatinine maximum of 3.75 from 1.05 on admission. He was evaluated by Nephrology. Renal biopsy has been recommended. However, due to aspirin use this will be done as outpatient. Due to significant renal failure, antibiotics have been changed to daptomycin. Home health care will be resumed. He has been cleared by consultants for discharge. FINAL DIAGNOSES: 1. Left foot diabetic infection with osteomyelitis. 2. Acute kidney injury on chronic kidney disease stage 2, multifactorial. 3. Diabetes mellitus type 2 with diabetic neuropathy. 4. Left foot Charcot deformity. 5. Coronary artery disease, status post myocardial infarction with no recent cardiac followup. An echocardiogram was done that showed ejection fraction of 45% to 50% with akinetic apex, [id number] mitral regurgitation. An outpatient cardiology followup was recommended. 6. Hypertension. 7. Hyponatremia. 8. Sinus bradycardia on admission probably secondary to beta carlota use. Beta blockers were discontinued. 9. Metabolic acidosis. 10. Suspected peripheral vascular disease. 11. Hyperkalemia on admission. Total time coordinating the discharge of this patient was 33 minutes. Job ID: [id number]
== END 2019-05-13 18:55 | disposition home or self-care (01) | DRG 40 ==
LOC: ERS 19:34 → T4-B 21:05 → 2NO 05-03 17:45 → T4-A 05-06 21:00
PROVIDERS: ADMIT Internal Medicine; ATTEND Internal Medicine
PROC: 0JBR0ZZ Excision of Left Foot Subcutaneous Tissue and Fascia, Open Approach (ICD-10-PCS; 2019-05-02)
PROC: 02HV33Z Insertion of Infusion Device into Superior Vena Cava, Percutaneous Approach (ICD-10-PCS; principal; 2019-05-05)
PROC: B518ZZA Fluoroscopy of Superior Vena Cava, Guidance (ICD-10-PCS; 2019-05-05)
DX: E11.610 Type 2 diabetes mellitus with diabetic neuropathic arthropathy (principal); N17.0 Acute kidney failure with tubular necrosis; E11.52 Type 2 diabetes mellitus with diabetic peripheral angiopathy with gangrene; M86.172 Other acute osteomyelitis, left ankle and foot; E87.1 Hypo-osmolality and hyponatremia; I96 Gangrene, not elsewhere classified; I42.9 Cardiomyopathy, unspecified; E11.40 Type 2 diabetes mellitus with diabetic neuropathy, unspecified; E11.69 Type 2 diabetes mellitus with other specified complication; E11.22 Type 2 diabetes mellitus with diabetic chronic kidney disease; N18.2 Chronic kidney disease, stage 2 (mild); I12.9 Hypertensive chronic kidney disease with stage 1 through stage 4 chronic kidney disease, or unspecified chronic kidney disease; I25.10 Atherosclerotic heart disease of native coronary artery without angina pectoris; E11.621 Type 2 diabetes mellitus with foot ulcer; L97.529 Non-pressure chronic ulcer of other part of left foot with unspecified severity; I08.0 Rheumatic disorders of both mitral and aortic valves; F32.9 Major depressive disorder, single episode, unspecified; R00.1 Bradycardia, unspecified; E87.5 Hyperkalemia; E78.5 Hyperlipidemia, unspecified; E66.9 Obesity, unspecified; E87.70 Fluid overload, unspecified; I25.2 Old myocardial infarction; Z95.5 Presence of coronary angioplasty implant and graft; Z79.84 Long term (current) use of oral hypoglycemic drugs; Z79.899 Other long term (current) drug therapy; Z68.34 Body mass index [BMI] 34.0-34.9, adult; Z95.1 Presence of aortocoronary bypass graft
CPT/HCPCS: 36415; 36416; 36569; 76770; 80048; 80053; 80069; 80202; 81001; 82550; 82570; 83036; 83735; 83930; 83935; 84100; 84156; 84300; 84540; 85025; 85610; 85730; 86140; 86160; 87040; 89190; 93005; 93306; 93923; 96365; 96375; C1751; J0712; J1200; J1644; J1650; J1815; J2405; J2543; J3370; J3490; J7050; Q0162

== ENCOUNTER 2019-05-22 15:11 | Inpatient (IN) | payer MEDICARE ==
--- NOTE | 2019-05-22 15:59 | RAD ---
Chest AP view INDICATION: Shortness of breath COMPARISON: None FINDINGS: Lungs:There are prominent airspace parenchymal opacities within the right upper lung, right lower lob e and left lower lobe suspicious for multifocal pneumonia Cardiac silhouette:There is moderate cardiomegaly. There is a left-sided PICC line with the tip of th e catheter residing in the region of the caval atrial junction. Pulmonary vasculature:Moderate pulmonary vascular congestion Pleural spaces:There are small bilateral pleural effusions, right greater than left Upper abdomen:No abnormality seen. Osseous structures: No acute osseous abnormality. Additional findings:None. IMPRESSION: Prominent areas of airspace consolidation within the right and left lung are suspicious f or multifocal pneumonia. There is a component suggesting mild CHF. Continued follow-up is recommended. Left upper extremity PICC line.
[2019-05-22] MEDS ORDERED: Ondansetron PF 4 MG/2 ML Vial ONE (16:03)
[2019-05-22] MEDS ORDERED: Furosemide 40 MG/4 ML VIAL ONE (16:03)
[2019-05-22] MEDS ORDERED: Morphine 4 MG/ML VIAL ONE (16:03)
[2019-05-22 16:22] LABS: Hemoglobin 10.4 g/dL (14.0-18.0); Mean Corpuscular Hemoglobin 28.7 pg (27.0-31.0); Mean Corpuscular Volume 87.1 fL (78.0-98.0); Mean Platelet Volume 7.4 fL (7.4-10.4); Platelet Count 443 thou/uL (130-400); RBC Distribution Width 13.4 % (11.5-14.5); Red Blood Cell (RBC) Count 3.63 mill/uL (4.70-6.10); White Blood Cell (WBC) Count 21.6 thou/uL (4.8-10.8)
[2019-05-22 16:43] LABS: ALT (SGPT) 18 U/L (8-55); AST (SGOT) 16 U/L (5-34); Albumin 3.6 g/dL (3.4-4.8); Alkaline Phosphatase 114 U/L (40-110); Anion Gap 17 mmol/L (10-20); BUN (Urea Nitrogen) 92 mg/dL (8.4-25.7); Bilirubin, Total 0.7 mg/dL (0.2-1.2); Calc. Creatinine Clearance 0 mL/min (70-130); Calcium 9.1 mg/dL (7.8-10.44); Carbon Dioxide 23 mmol/L (23-31); Chloride 100 mmol/L (98-107); Estimated GFR-MDRD 23; Globulin 3.6 g/dL (2.4-3.5); Glucose 212 mg/dL (80-115); Potassium 4.5 mmol/L (3.5-5.1); Protein, Total 7.2 g/dL (5.8-8.1); Sodium 135 mmol/L (136-145)
[2019-05-22 16:47] LABS: Band 3 % (5-11); Eosinophils 3 % (0-10); MDiff Complete? YES; Monocytes 4 % (0-10); Neutrophil 88 % (42-75); Platelet Morphology Comment Appears Increased; Polychromasia SLIGHT = 2-3 cells (100X) (0-2/hpf)
[2019-05-22] MEDS ORDERED: Acetaminophen 650 MG Suppository PR PRN (16:59)
[2019-05-22] MEDS ORDERED: Ondansetron ODT 4 MG TAB PO PRN (16:59)
[2019-05-22] MEDS ORDERED: Ondansetron PF 4 MG/2 ML Vial IVP PRN (16:59)
[2019-05-22] MEDS ORDERED: Dextrose 50% Abboject 50 ML SYRINGE SLOW IVP PRN (17:02)
[2019-05-22] MEDS ORDERED: Dextrose 5% in Water 1,000 ML IV PRN (17:02)
[2019-05-22 17:12] LABS: CKMB 2.9 ng/mL (0-6.6)
[2019-05-22 17:25] LABS: Lactic Acid 0.9 mmol/L (0.5-2.2)
[2019-05-22 17:39] LABS: Troponin I 0.463 ng/mL (< 0.028)
[2019-05-22] MEDS ORDERED: Magnesium Sulfate 2 GM in Sodium Chloride 0.9% 100 ML IVPB SCH (17:45)
--- NOTE | 2019-05-22 17:48 | ULT ---
EXAM: Bilateral lower extremity venous duplex: Deep veins evaluated with color Doppler, spectral analysis, and compression. INDICATIONS: Bilateral lower extremity pain and edema. FINDINGS: Deep veins interrogated include common femoral vein, femoral vein, popliteal vein, and post erior tibial vein. These veins show normal compression and blood flow. No evidence of DVT. IMPRESSION: Negative Bilateral venous duplex exam.
[2019-05-22] MEDS ORDERED: Enoxaparin Sodium 30 MG/0.3 ML SYRINGE ONE (18:18)
[2019-05-22] MEDS ORDERED: Enoxaparin Sodium 80 MG/0.8 ML SYRINGE ONE (18:18)
[2019-05-22 21:20] LABS: Troponin I 0.529 ng/mL (< 0.028)
--- NOTE | 2019-05-22 21:30 | CON ---
DATE OF CONSULTATION: HISTORY OF PRESENT ILLNESS: Mr. Carroll is a 69-year-old white male, who presents today complaining of shortness of breath. He was [facility] yesterday for his acute kidney injury. His creatinine is noted to be improving over time. He presented today complaining of shortness of breath and some leg edema. Chest x-ray did show a combination of moderate pulmonary vascular congestion as well as a possibility of a superimposed multifocal pneumonia. He has been started on Lasix at 80 mg IV q.12h. Please note, his creatinine is much improved when compared during his last hospitalization. We are now being consulted for his acute kidney injury/chronic renal failure? REVIEW OF SYSTEMS: Positive for shortness of breath. No chest pain. Positive for leg edema. No diarrhea. No constipation. Denies any overt fever or chills. No abdominal pain. Appetite and energy level are decreased. No headache. No diplopia. No syncopal episode, no sore throat. No abdominal pain. No dysuria. No urinary frequency. No productive cough. MEDICATIONS: Currently on: 1. Hydralazine 50 mg q.i.d. 2. Glipizide 5 mg p.o. b.i.d. 3. Clonidine 0.1 mg b.i.d. p.r.n. 4. Sodium bicarbonate 650 mg p.o. t.i.d. 5. Lovastatin 40 mg at bedtime. 6. Daptomycin 350 mg IV as directed. 7. Aspirin 3-5 mg daily. 8. Amlodipine 10 mg daily. PAST MEDICAL HISTORY: 1. Acute kidney injury. 2. Hypertension. 3. Type 2 diabetes mellitus. 4. History of left foot osteomyelitis. 5. Left foot Charcot deformity. 6. Coronary artery disease. 7. Peripheral vascular disease. PAST SURGICAL HISTORY: Includes the following, status post left upper extremity PICC line placement, status post debridement of left foot callus and necrotic tissue, status post cardiac cath with angioplasty. SOCIAL HISTORY: The patient is . He lives by himself. He lives in [place]. He has 2 children. He denies any IV drug use. He smoked for several years, but quit in 1995. Alcohol 3-4 beers per week. ALLERGIES: NO KNOWN DRUG ALLERGIES. TRAUMA: Non. IMMUNIZATIONS: Up-to-date. HOSPITALIZATIONS: Please see past medical history. FAMILY HISTORY: No family history of ESRD. PHYSICAL EXAMINATION: VITAL SIGNS: Blood pressure is noted at 150/70, heart rate 70. GENERAL: Pulse ox 89% to 90%. GENERAL: Noted to be awake, not in respiratory distress, obese. SKIN: Adequate turgor. HEENT: He has pinkish conjunctivae. Anicteric sclerae. NECK: No neck mass. No carotid bruits. No JVD. CHEST: No deformities. LUNGS: Bibasilar crackles. HEART: Normal sinus rhythm. No murmurs, gallops, or rubs. ABDOMEN: Globular, soft, nontender, no masses. EXTREMITIES: Trace edema. Left foot cast noted. NEUROLOGIC: Awake oriented to 3 spheres. Moving all extremities. No tremors. No asterixis. No ataxia. LABORATORY DATA: From May 22, 2019; white count 21.6, hemoglobin 10.4, neutrophils 88%, bands 3. Sodium 135, potassium 4.5, chloride 100, carbon dioxide 23, BUN 92, creatinine 2.73, glucose 212, magnesium 2.7, AST 16, ALT 18. BNP is 3338, albumin 3.6. Troponin I is 0.463. Further review of his serum creatinine shows the following. On May 13, 2019, creatinine was 3.79. IMAGING: Chest x-ray shows suspicion for multifocal pneumonia, increased lung markings. ASSESSMENT/PLAN: 1. Shortness of breath, multifactorial etiology. 2. Superimposed pneumonia as well as congestive heart failure is being considered. I would agree with empiric IV antibiotics with this patient. He has been started on Lasix 80 mg IV q.12h. 3. Acute kidney injury-unclear etiology, although initially suspected, may have been related to vancomycin, this has been discontinued. In over time after the discontinuation, we see improvement of the renal function. 4. Most recent creatinine is 2.76. I feel that he will tolerate IV Lasix. If needed, we can always add an albumin infusion for this patient. I do not see any indication for any emergent hemodialysis with this patient. 5. Overall agree with current management. 6. We will recheck basic metabolic profile and CBC in a.m. Job ID: [id number]
[2019-05-22] MEDS: Famotidine/PF 20 mg/2ml Vial SLOW IVP SCH (22:50)
[2019-05-23 00:15] LABS: CKMB 2.9 ng/mL (0-6.6)
[2019-05-23] MEDS ORDERED: cloNIDine 0.1 MG TAB PO PRN (00:21)
--- NOTE | 2019-05-23 01:05 | HP ---
PRIMARY CARE PHYSICIAN: Dr. Macedo. TIME OF ASSESSMENT: 1600. CHIEF COMPLAINT: Shortness of breath. HISTORY OF PRESENT ILLNESS: Mr. Carroll is a pleasant 69-year-old gentleman who has a known history of CHF as well as CKD for which he sees Dr. Mckenzie. The patient states he has been having increasing shortness of breath for the last 3 to 4 days. He states he has he has had a recent admission for left foot wound infection/osteomyelitis for which he has been receiving IV antibiotics. He has noted improvement with the wound, but states that due to the antibiotics, he feels it has caused issues with his kidneys and therefore fluid retention. The patient states since arriving to the emergency department and being given Lasix, his breathing has significantly improved. Apparently, Dr. Castro has discussed with Dr. Mckenzie and recommendations were given to give 80 mg of Lasix IV. He denies having any associated chest pain. He does report having hemoptysis. Denies any nausea or vomiting. No abdominal pain or cramping. Has not had any recent fevers, chills , or sweats. Does report having chronic back pain. All other review of systems are negative. In the emergency department, he also underwent an EKG which showed sinus rhythm with a heart rate of 89 and PACs. He underwent laboratory studies which were notable for a white count of 21.6, hemoglobin of 10.4, hematocrit of 31.6, platelets 443. Sodium 135, potassium 4.5, chloride 100, carbon dioxide 23, anion gap 17, BUN 92 , creatinine 2.73, GFR 23. Renal function is better than it was a week and a half ago. Previously, the GFR was 16. His lactic acid was normal. Calcium 9.1, magnesium 2.7, total bilirubin 0.7, AST 16, ALT 18, alkaline phosphatase 114, CK -MB 2.9, troponin 0.436, BNP 3338, total protein 7.2, albumin 3.6. Chest x-ray done in the emergency department showed prominent areas of airspace consolidation within the right and left lung suspicious for multifocal pneumonia. There was a component suggesting mild CHF. Followup imaging was recommended. The patient is noted to have a left upper extremity PICC line in place. PAST MEDICAL HISTORY: 1. KENZIE. 2. Hypertension. 3. Type 2 diabetes mellitus. 4. Left foot osteomyelitis. 5. Left foot Charcot deformity. 6. Coronary artery disease. 7. Peripheral vascular disease. 8. CHF. PAST SURGICAL HISTORY: 1. Left upper extremity PICC line placement. 2. Left foot callus and necrotic tissue debridement. 3. Cardiac catheterization with angioplasty. SOCIAL HISTORY: The patient lives alone. He is a former smoker, but quit over 10 years ago. Reports drinking 3 to 4 beers a week previously, but has not had any in several days. Denies any drug use. FAMILY HISTORY: Noncontributory. ALLERGIES: NO KNOWN DRUG ALLERGIES. CURRENT MEDICATIONS: 1. Glipizide. 2. Lovastatin. 3. Sitagliptin. 4. Amlodipine. 5. Clonidine. 6. Daptomycin. 7. Hydralazine. 8. Florastor. 9. Bicarbonate. PHYSICAL EXAMINATION: GENERAL: The patient appears well developed, well nourished, is in no acute distress. VITAL SIGNS: Pulse 82, blood pressure 150/77, respirations 22, O2 saturation 95% on 2 L of oxygen. HEENT: Normocephalic and atraumatic. Pupils are equal, round, and reactive to light. Sclerae without icterus. Oropharynx is clear. NECK: Supple without lymphadenopathy. LUNGS: Notable for crackles at the left lower lung base. CARDIAC: Regular rate and rhythm. ABDOMEN: Soft, nontender, nondistended. Normoactive bowel sounds present. EXTREMITIES: Notable for +2 pitting edema. Dressing in place to the left foot. NEUROLOGIC: Alert and oriented x3. No neuro deficits on exam. Speech normal. Able to follow commands. SKIN: Warm and dry. INVESTIGATIONS: As mentioned above in HPI. IMPRESSION AND PLAN: Mr. Carroll is a 69-year-old gentleman who has been referred for management of the followin. Congestive heart failure exacerbation. The patient with a BNP of 3300. He has been given 80 mg of Lasix in the ED as per Dr. Mckenzie's recommendation according to Dr. Castro. We will continue diuresis. There were some changes potentially suggestive for congestive heart failure on the chest x-ray, but also concerns for multifocal pneumonia. White count is elevated at 21.6 with a neutrophil count of 88. The patient without any fevers. He has been experiencing hemoptysis. I will obtain venous Doppler to rule out deep vein thrombosis. In the emergency department, he did receive Lovenox 1 mg/kg. The patient does have reduced GFR of 23, though it is improved from previous renal function. We will discuss further with Dr. Mallory. He advised waiting for venous Dopplers before any further workup for pulmonary embolism. 2. Leukocytosis. As mentioned above, possible changes for multifocal pneumonia. The patient is afebrile. We will add lactic acid and procalcitonin. We will hold on antibiotics for now. 3. Chronic kidney disease. Dr. Mckenzie has been consulted by Dr. Castro. 4. Hypertension. Resume home medications once verified. 5. Hyperlipidemia. Resume home medications once verified. 6. Type 2 diabetes mellitus. Hold home medications and initiate insulin sliding scale for now. 7. Gastrointestinal prophylaxis. Famotidine 10 mg b.i.d. 8. Code status, full. Surrogate decision maker is his son, Angel Carroll. The patient's case was discussed with attending who agrees with plan of care as described above. Job ID: [id number] MTDD
[2019-05-23 04:24] LABS: #Basophils 0.1 thou/uL (0.0-0.2); #Eosinphils 0.6 thou/uL (0.0-0.7); #Lymphocytes 0.9 thou/uL (1.20-3.40); #Neutrophils 14.4 thou/uL (1.40-6.50); %Basophils 0.7 % (0.0-1.0); %Eosinophils 3.3 % (0.0-10.0); %Lymphocytes 5.5 % (21.0-51.0); %Monocytes 5.7 % (0.0-10.0); %Neutrophils 84.9 % (42.0-75.0); Hemoglobin 9.8 g/dL (14.0-18.0); Mean Corpuscular HGB CONC 33.7 g/dL (32.0-36.0); Mean Corpuscular Hemoglobin 29.7 pg (27.0-31.0); Mean Corpuscular Volume 87.9 fL (78.0-98.0); Mean Platelet Volume 7.3 fL (7.4-10.4); Platelet Count 373 thou/uL (130-400); RBC Distribution Width 13.3 % (11.5-14.5)
[2019-05-23 04:44] LABS: Anion Gap 13 mmol/L (10-20); BUN (Urea Nitrogen) 91 mg/dL (8.4-25.7); Calc. Creatinine Clearance 44 mL/min (70-130); Carbon Dioxide 26 mmol/L (23-31); Chloride 101 mmol/L (98-107); Estimated GFR-MDRD 24; Glucose 145 mg/dL (80-115); Potassium 4.4 mmol/L (3.5-5.1); Sodium 136 mmol/L (136-145)
[2019-05-23] MEDS: hydrALAZINE 25 MG TAB PO SCH ×4 (06:09→23:11)
[2019-05-23] MEDS: Acetaminophen 325 MG TAB PO PRN ×4 (06:09→22:03)
[2019-05-23] MEDS: Furosemide 40 MG/4 ML VIAL SLOW IVP SCH ×2 (06:09→15:15)
[2019-05-23] MEDS ORDERED: Amlodipine 10 MG TAB PO SCH (09:00)
[2019-05-23] MEDS: Saccharomyces boulardii 250 MG CAP PO SCH (09:04)
[2019-05-23] MEDS: Sodium Bicarbonate Tab 325 MG TAB PO SCH ×2 (09:05→15:15)
--- NOTE | 2019-05-23 09:53 | PRG ---
DATE OF SERVICE: 05/23/2019 SUBJECTIVE: Mr. Carroll is a 69-year-old white male, who was admitted for shortness of breath. He was found to be with CHF and question of pneumonia. Empiric IV antibiotics have been started today. Please note, he was also receiving IV daptomycin for his chronic left leg/foot osteomyelitis. We are following up this patient for his acute kidney injury. His renal function over time is slowly improving. Please note, his creatinine peaked at a value of about 3.5 mg% slowly improving. He has also been started on diuresis due to the possible superimposed CHF. He is breathing better today. OBJECTIVE: VITAL SIGNS: Blood pressure 123/59, heart rate 78, respiratory rate 20, temperature 98.1, pulse ox 93% on 3 L. GENERAL: Awake, alert, comfortable. Obese. Not in distress. SKIN: Adequate turgor. HEENT: Slightly pale conjunctivae. Anicteric sclerae. NECK: No neck mass. No carotid bruits. No JVD. CHEST: No deformities. LUNGS: Decreased breath sounds. HEART: Normal sinus rhythm. No murmurs, no gallops, no rubs. ABDOMEN: Globular, soft, nontender. No masses. EXTREMITIES: No edema. Positive for left foot dressing. MEDICATIONS: Medications of May 23, 2019, was reviewed. LABORATORY DATA: Laboratories of May 23, 2019; white count 17, hemoglobin 9.8. Sodium 136, potassium 4.4, chloride 101, carbon dioxide 26, BUN 91, creatinine 2.65, glucose 145, calcium 9. Troponin I 0.622. On May 22, 2019, creatinine 2.73. ASSESSMENT AND PLAN: 1. Acute kidney injury-this was suspected secondary to a drug-induced acute kidney injury from vancomycin? This has been discontinued and overtime renal function is slowly improving. There is no indication for any dialytic intervention with this patient at the present time. 2. Chronic renal failure, most likely from underlying diabetic nephropathy. Management is essentially supportive. 3. Shortness of breath, multifactorial etiology. Congestive heart failure versus a superimposed pneumonia. Currently on IV diuretics. Breathing is better. We will empirically treat with IV antibiotics. 4. Chronic left foot infection/osteomyelitis. ID has been reconsulted. We will check basic metabolic profile and CBC in a.m. Job ID: [id number] [facility]
--- NOTE | 2019-05-23 13:09 | PRG ---
DATE OF SERVICE: 05/23/2019 SUBJECTIVE: Mr. Carroll has been readmitted. He developed dyspnea and hypoxemia in the home setting. Due to volume overload, he is admitted now. He has been started on Zosyn because of concern with multifocal pneumonia, but I believe the findings are more consistent with edema. Right now, he is feeling better. He has been urinating a lot. He is voiding spontaneously. The foot is not bothering him. He did have some hemoptysis which was probably from the pulmonary edema. No chest pain. No abdominal pain. No diarrhea. No neurological symptoms. OBJECTIVE: VITAL SIGNS: His temperature has been normal in the hospital. BP 148/72, pulse 84, respirations 18, O2 saturation ranging from 91 to 94 on nasal cannula O2. GENERAL: Awake, alert, oriented. HEENT: Ocular movements conjugate. Sclerae white. Pupils are equal. Conjunctivae normal. Oral cavity moist. NECK: Supple. Some jugular vein distention. LUNGS: Faint basilar crackles, particularly in the right side. No wheezing. HEART: S1 and S2. Regular rate without murmurs. No S3 or S4. ABDOMEN: Slightly distended but soft, not tender. No ascites. No bladder distention. EXTREMITIES: The foot has 100% granulating wound. No erythema surrounding it. A little bit of callus. LABORATORY DATA: White cell count 21,000 down to 17, hemoglobin 9.8, platelets 373, 84% neutrophils. The BNP was very high at 3338. GFR is up to 24 from 16. The creatinine is down to 2.65 from 3.7. Troponin 0.529. ASSESSMENT AND DISCUSSION: Type 2 diabetes, peripheral vascular disease, Charcot arthropathy, neuropathy, chronic ulcer with osteomyelitis on MRI, acute renal failure with concern for nephrotoxicity from drug combination of vancomycin and Zosyn in the recent past, transition to ceftaroline and then to outpatient daptomycin, now readmitted with likely pulmonary edema as noted in the chest x-ray and the BNP. The neutrophilia is probably from the adrenergic response to the hypoxemia and pulmonary edema. Switch back to either daptomycin or ceftaroline. Discontinue Zosyn. Once his oxygenation improves and the followup chest x-ray improves, then go back to his outpatient regimen as previously. Job ID: [id number]
[2019-05-23] MEDS ORDERED: Piperacillin/Tazobactam 2.25 GM in Sodium Chloride 0.9% 100 ML IVPB SCH (14:00)
--- NOTE | 2019-05-23 15:27 | PDOC.HOSPP ---
- Subjective Encounter Date: 05/23/19 Encounter Time: 08:00 Subjective: Pt seen for followup re: acute hypoxic respiratory failure. Feels slightly better. c/o back pain. - Objective Vital Signs & Weight: Vital Signs (12 hours) Temp Pulse Pulse Pulse Resp BP BP 05/23/19 12:42 82 85 139/64 139/65 05/23/19 12:00 98.3 F 84 18 05/23/19 07:33 98.1 F 78 20 05/23/19 06:09 76 05/23/19 04:00 98 F 76 20 BP Pulse Ox 05/23/19 12:42 05/23/19 12:00 148/72 H 91 L 05/23/19 07:33 123/59 L 93 L 05/23/19 06:09 05/23/19 04:00 134/62 94 L Weight Admit Weight 253 lb 11.2 oz Weight 254 lb I&O: 05/22/19 05/23/19 05/24/19 06:59 06:59 06:59 Intake Total 300 Output Total 600 Balance -300 Result Diagrams: 05/23/19 04:00 05/23/19 04:00 Additional Labs: Accuchecks 05/23/19 05/23/19 05/22/19 10:26 05:48 20:49 POC Glucose 225 H 150 H 189 H labs and MARs reviewed by me EKG Reviewed by me: Yes (Tele; NSR) Hospitalist ROS - Medication Medications: Active Medications Generic Name Dose Route Start Last Admin Trade Name Freq PRN Reason Stop Dose Admin Acetaminophen 650 mg 05/22/19 16:59 05/23/19 11:26 Tylenol PO 650 mg Q4H PRN Administration Headache/Fever/Mild Pain (1-3) Amlodipine Besylate 10 mg 05/23/19 09:00 05/23/19 09:04 Norvasc PO 10 mg DAILY DEWAYNE Administration Famotidine 20 mg 05/22/19 21:00 05/22/19 22:50 Pepcid SLOW IVP Not Given QPM DEWAYNE Furosemide 40 mg 05/23/19 06:00 05/23/19 15:15 Lasix SLOW IVP 40 mg 0600,1400 DEWAYNE Administration Hydralazine HCl 50 mg 05/23/19 06:00 05/23/19 11:26 Apresoline PO 50 mg Q6HR DEWAYNE Administration Saccharomyces Boulardii 250 mg 05/23/19 09:00 05/23/19 09:04 Florastor PO 250 mg DAILY DEWAYNE Administration Sodium Bicarbonate 650 mg 05/23/19 09:00 05/23/19 15:15 Bicarbonate, Sodium PO 650 mg TID DEWAYNE Administration - Exam General - other findings: Obese Eye: anicteric sclera ENT: moist mucosa Neck: supple, no thyromegaly, JVD Heart: RRR, no rubs Respiratory - other findings: Eric crackles Gastrointestinal: soft, non-tender Extremities: no edema Skin: no rashes Psychiatric: normal affect, normal behavior Hosp A/P (1) Acute respiratory failure with hypoxia Code(s): J96.01 - ACUTE RESPIRATORY FAILURE WITH HYPOXIA Status: Acute (2) Back pain Code(s): M54.9 - DORSALGIA, UNSPECIFIED Status: Acute (3) Acute systolic CHF (congestive heart failure), NYHA class 3 Code(s): I50.21 - ACUTE SYSTOLIC (CONGESTIVE) HEART FAILURE Status: Acute (4) Diabetes mellitus Code(s): E11.9 - TYPE 2 DIABETES MELLITUS WITHOUT COMPLICATIONS Status: Chronic (5) Non-healing ulcer of left foot Code(s): L97.529 - NON-PRESSURE CHRONIC ULCER OTH PRT LEFT FOOT W UNSP SEVERITY Status: Chronic (6) HTN (hypertension) Code(s): I10 - ESSENTIAL (PRIMARY) HYPERTENSION Status: Chronic (7) Chronic kidney disease, stage 4 (severe) Code(s): N18.4 - CHRONIC KIDNEY DISEASE, STAGE 4 (SEVERE) Status: Chronic - Plan plan discussed w/ family, continue antibiotics, out of bed/ambulate Continue diuretics. Consult cardiology re: elevated troponin. Continue accuchecks, insulin sliding scale. Check thoracic and lumbar spine x-rays.
--- NOTE | 2019-05-23 16:51 | RAD ---
Exam: 3 views lumbar spine HISTORY: Pain FINDINGS: 5 lumbar type vertebral bodies. Vertebral body height is maintained. No fracture. Mild loss of disc space height and osteophyte formation at L1-L2. 4.1 mm of anterolisthesis of L4 upon L5. No associated spondylolysis. IMPRESSION: Grade 1 anterolisthesis of L4 upon L5.
--- NOTE | 2019-05-23 16:55 | RAD ---
Exam: 3 views thoracic spine HISTORY: Back pain COMPARISON: None FINDINGS: AP, lateral and swimmer's view of the thoracic spine demonstrate multilevel degenerative di sc disease with loss of disc space height and osteophyte formation. No fracture or malalignment. There appear to be 12 thoracic type vertebra. Incidental left-sided PICC line. IMPRESSION: Mild multilevel degenerative disc disease. No definite fracture or malalignment. Transcribed Date/Time: 05/23/2019 5:07 PM
[2019-05-23] MEDS ORDERED: Furosemide 40 MG/4 ML VIAL SLOW IVP SCH (20:00)
--- NOTE | 2019-05-23 20:16 | CON ---
DATE OF CONSULTATION: [facility] MANAGER: Yuridia Sow MD REASON FOR CONSULTATION: Congestive heart failure. HISTORY OF PRESENT ILLNESS: Mr. Carroll is a very pleasant 69-year-old gentleman. He has a history of congestive heart failure as well as renal insufficiency. He also has an infection of the toe on the left foot, is being treated for that. He was admitted to the hospital with progressive difficulty breathing, unable to lie flat, severe orthopnea. He received diuretics, is beginning to feel better. No chest pain or pressure. PAST MEDICAL HISTORY: 1. He had a balloon angioplasty of the coronary artery many years ago, details unavailable. 2. He was bradycardic on recent admission, but he is not bradycardic now. MEDICATIONS: At home included, 1. Glipizide. 2. Lovastatin. 3. Hydralazine. 4. Amlodipine 10 mg a day. 5. Sodium bicarb three times a day. 6. Januvia. 7. Hydralazine. REVIEW OF SYSTEMS: CONSTITUTIONAL: No significant weight loss. He has been gaining fluid weight. VISION: No changes. HEARING: No changes. PULMONARY: Positive for shortness of breath. No fever. CARDIAC: As outlined above. GASTROINTESTINAL: No nausea, vomiting, or diarrhea. SKIN: No rashes. NEUROLOGIC: No unilateral weakness or numbness. PSYCHIATRIC: No unusual depression or anxiety. EXTREMITIES: Severe edema. PHYSICAL EXAMINATION: GENERAL: This is a delightful elderly gentleman, in no distress. VITAL SIGNS: Blood pressure 148/72, pulse 84, regular. EYES: Sclerae nonicteric. MOUTH: Mucous membranes moist. NECK: Supple. No lymphadenopathy. LUNGS: Clear. No wheezing, rales, or rhonchi. CARDIAC: Distant, but no murmur, rub, or gallop. ABDOMEN: Obese, nontender. No hepatosplenomegaly. EXTREMITIES: Warm, dry. No clubbing or cyanosis. There is moderate to severe edema, left greater than the right. PERTINENT LABORATORY DATA: Creatinine is 2.65, estimated GFR is 24. CO2 is 26. Troponin level 0.622. The patient had an echocardiogram done recently, 05/03/2019, ejection fraction 45% to 50%, apex akinetic. EKG shows what looked like an extensive anterior infarct. ASSESSMENT: 1. Congestive heart failure, systolic-diastolic mixed, volume overloaded. 2. Stage 4 renal failure, but stable. 3. Increased troponin, likely related to underlying coronary artery disease. PLAN: 1. Continue intravenous diuretics. 2. I have asked him to elevate his feet after he gets diuretics to avoid intravascular depletion and mobilize the peripheral edema. We will give him one extra dose of diuretic tonight. 3. I would recommend stopping the sodium bicarbonate if possible due to the sodium load that is almost another 2 g of sodium a day orally. 4. Reduced amlodipine. 5. Avoid beta blockers due to recent bradycardia. I would be glad to follow with you. The patient appears to be improving. Job ID: [id number]
[2019-05-23] MEDS: Atorvastatin Calcium 10 MG TAB PO SCH (22:02)
[2019-05-23] MEDS: Famotidine/PF 20 mg/2ml Vial SLOW IVP SCH (22:03)
[2019-05-23] MEDS: HumaLOG 300 UNITS/3 ML VIAL SC PRN (22:04)
[2019-05-24 04:19] LABS: #Basophils 0.1 thou/uL (0.0-0.2); #Eosinphils 0.8 thou/uL (0.0-0.7); #Lymphocytes 0.9 thou/uL (1.20-3.40); #Monocytes 0.9 thou/uL (0.11-0.59); #Neutrophils 13.8 thou/uL (1.40-6.50); %Basophils 0.6 % (0.0-1.0); %Eosinophils 5.1 % (0.0-10.0); %Lymphocytes 5.2 % (21.0-51.0); %Monocytes 5.3 % (0.0-10.0); %Neutrophils 83.8 % (42.0-75.0); Hemoglobin 9.7 g/dL (14.0-18.0); Mean Corpuscular HGB CONC 32.9 g/dL (32.0-36.0); Mean Corpuscular Hemoglobin 28.9 pg (27.0-31.0); Mean Corpuscular Volume 87.9 fL (78.0-98.0); Mean Platelet Volume 7.3 fL (7.4-10.4); Platelet Count 288 thou/uL (130-400); RBC Distribution Width 13.3 % (11.5-14.5); Red Blood Cell (RBC) Count 3.37 mill/uL (4.70-6.10); White Blood Cell (WBC) Count 16.4 thou/uL (4.8-10.8)
[2019-05-24 04:39] LABS: Anion Gap 13 mmol/L (10-20); BUN (Urea Nitrogen) 86 mg/dL (8.4-25.7); Calc. Creatinine Clearance 45 mL/min (70-130); Carbon Dioxide 26 mmol/L (23-31); Chloride 102 mmol/L (98-107); Estimated GFR-MDRD 25; Glucose 155 mg/dL (80-115); Potassium 4.1 mmol/L (3.5-5.1); Sodium 137 mmol/L (136-145)
[2019-05-24] MEDS: hydrALAZINE 25 MG TAB PO SCH ×3 (04:50→17:44)
[2019-05-24] MEDS: Acetaminophen 325 MG TAB PO PRN ×3 (04:50→21:19)
[2019-05-24] MEDS: Furosemide 40 MG/4 ML VIAL SLOW IVP SCH ×2 (04:50→14:38)
[2019-05-24] MEDS: Amlodipine 5 MG TAB PO SCH (08:58)
[2019-05-24] MEDS: Saccharomyces boulardii 250 MG CAP PO SCH (08:58)
[2019-05-24] MEDS: HumaLOG 300 UNITS/3 ML VIAL SC PRN ×4 (08:58→21:19)
--- NOTE | 2019-05-24 11:10 | PRG ---
DATE OF SERVICE: 05/24/2019 SUBJECTIVE: Mr. Carroll is a 69-year-old white male, who was admitted for congestive heart failure with a ? of pneumonia. We are following him up for his acute kidney injury. The acute kidney injury was initially due to a drug induced kidney injury? Vancomycin. Renal function has been holding steady and slowly improving. He is currently on a diuretic regimen. He is also on sodium bicarbonate due to the metabolic acidosis. He is feeling better. His breathing is much improved. He has also been seen by Cardiology due to the CHF and elevated troponin I. OBJECTIVE: VITAL SIGNS: Blood pressure is 137/63, heart rate 79, respiratory rate 20, temperature 97.8, pulse ox 92%. GENERAL Noted to be awake, alert, comfortable, not in distress. SKIN: Adequate turgor. HEENT: He has slightly pale conjunctivae. Anicteric sclerae. NECK: No neck mass. No carotid bruits. No JVD. CHEST: No deformities. LUNGS: Decreased breath sounds. HEART: Normal sinus rhythm. No murmurs, gallops, or rubs. ABDOMEN: Globular, soft, nontender. No masses. EXTREMITIES: Positive for edema. MEDICATIONS: Of May 24, 2019, reviewed. LABORATORY DATA: Of May 24, 2019, white count 16.4, hemoglobin 9.7. Sodium 137, potassium 4.1, chloride 102, carbon dioxide 26, BUN 86, creatinine 2.61. GFR 25 mL/minute. Glucose 155, calcium 9. ASSESSMENT AND PLAN: 1. Acute kidney injury/slowly improving. Creatinine noted at 2.61 with a GFR 25 mL/minute. This places him at stage 4 chronic renal failure. Continue supportive care. Continue judicious use of diuretics. 2. Congestive heart failure, clinically much improved. Cardiology is following. Continue IV diuretics and adjust as needed. 3. Left foot infection, currently on IV antibiotics. 4. Recheck basic metabolic profile and CBC in a.m. Job ID: [id number]
--- NOTE | 2019-05-24 15:45 | PDOC.HOSPP ---
- Subjective Encounter Date: 05/24/19 Encounter Time: 07:00 Subjective: Pt seen for followup re: acute hypoxic respiratory failure. feels better. - Objective Vital Signs & Weight: Vital Signs (12 hours) Temp Pulse Resp BP BP Pulse Ox 05/24/19 12:00 98.3 F 78 21 H 145/66 H 90 L 05/24/19 07:23 97.8 F 79 20 137/63 92 L 05/24/19 04:50 78 Weight Admit Weight 253 lb 11.2 oz Weight 253 lb 6.4 oz I&O: 05/23/19 05/24/19 05/25/19 06:59 06:59 06:59 Intake Total 300 1920 Output Total 600 800 Balance -300 1120 Result Diagrams: 05/24/19 04:00 05/24/19 04:00 Additional Labs: Accuchecks 05/24/19 05/24/19 05/23/19 11:02 05:31 20:09 POC Glucose 257 H 171 H 223 H labs and MARs reviewed by md Hospitalist ROS - Review of Systems Respiratory: reports: cough, SOB with excertion, sputum. denies: shortness of breath, pleuritic pain, wheezing Cardiovascular: denies: chest pain, palpitations, orthopnea, paroxysmal noc. dyspnea, edema, light headedness - Medication Medications: Active Medications Generic Name Dose Route Start Last Admin Trade Name Freq PRN Reason Stop Dose Admin Acetaminophen 650 mg 05/22/19 16:59 05/24/19 09:00 Tylenol PO 650 mg Q4H PRN Administration Headache/Fever/Mild Pain (1-3) Amlodipine Besylate 5 mg 05/24/19 09:00 05/24/19 08:58 Norvasc PO 5 mg DAILY DEWAYNE Administration Atorvastatin Calcium 10 mg 05/23/19 21:00 05/23/19 22:02 Lipitor PO 10 mg HS DEWAYNE Administration Famotidine 20 mg 05/22/19 21:00 05/23/19 22:03 Pepcid SLOW IVP 20 mg QPM DEWAYNE Administration Furosemide 40 mg 05/23/19 06:00 05/24/19 14:38 Lasix SLOW IVP 40 mg 0600,1400 DEWAYNE Administration Hydralazine HCl 50 mg 05/23/19 06:00 05/24/19 12:24 Apresoline PO 50 mg Q6HR DEWAYNE Administration Ceftaroline Fosamil 300 mg/ 100 mls @ 100 mls/hr 05/23/19 21:00 05/24/19 08: 57 Sodium Chloride IVPB 100 mls Q12HR DEWAYNE Administration Insulin Human Lispro 0 units 05/22/19 17:02 05/24/19 12:24 Humalog SC 4 unit .MILD SLIDING SCALE PRN Administration Mild Correctional Scale Insulin Human Lispro 0 units 05/22/19 17:02 05/23/19 22:04 Humalog SC 2 unit .BEDTIME SLIDING SC PRN Administration Bedtime Correctional Scale Saccharomyces Boulardii 250 mg 05/23/19 09:00 05/24/19 08:58 Florastor PO 250 mg DAILY DEWAYNE Administration - Exam General - other findings: Obese Eye: anicteric sclera ENT: moist mucosa Neck: supple, JVD Heart: RRR Respiratory - other findings: Bibasal crackles Gastrointestinal: soft, non-tender Extremities: 1+ LE edema Psychiatric: normal affect, normal behavior Hosp A/P (1) Acute respiratory failure with hypoxia Code(s): J96.01 - ACUTE RESPIRATORY FAILURE WITH HYPOXIA Status: Acute (2) Acute systolic CHF (congestive heart failure), NYHA class 3 Code(s): I50.21 - ACUTE SYSTOLIC (CONGESTIVE) HEART FAILURE Status: Acute (3) Diabetes mellitus Code(s): E11.9 - TYPE 2 DIABETES MELLITUS WITHOUT COMPLICATIONS Status: Chronic (4) Non-healing ulcer of left foot Code(s): L97.529 - NON-PRESSURE CHRONIC ULCER OTH PRT LEFT FOOT W UNSP SEVERITY Status: Chronic (5) HTN (hypertension) Code(s): I10 - ESSENTIAL (PRIMARY) HYPERTENSION Status: Chronic (6) Chronic kidney disease, stage 4 (severe) Code(s): N18.4 - CHRONIC KIDNEY DISEASE, STAGE 4 (SEVERE) Status: Chronic (7) Back pain Code(s): M54.9 - DORSALGIA, UNSPECIFIED Status: Resolved - Plan plan discussed w/ family, continue antibiotics, out of bed/ambulate Continue furosemide. Pt has been started on ceftaroline. Continue accuchecks, insulin sliding scale. back pain has resolved.
[2019-05-24] MEDS ORDERED: Melatonin 3 MG TAB PO PRN (16:04)
[2019-05-24] MEDS: Atorvastatin Calcium 10 MG TAB PO SCH (21:18)
[2019-05-24] MEDS: Famotidine/PF 20 mg/2ml Vial SLOW IVP SCH (21:19)
[2019-05-25] MEDS: hydrALAZINE 25 MG TAB PO SCH ×5 (01:41→23:23)
[2019-05-25] MEDS: Furosemide 40 MG/4 ML VIAL SLOW IVP SCH ×2 (06:32→14:14)
[2019-05-25 08:41] LABS: #Basophils 0.1 thou/uL (0.0-0.2); #Eosinphils 0.9 thou/uL (0.0-0.7); #Lymphocytes 0.8 thou/uL (1.20-3.40); #Monocytes 0.9 thou/uL (0.11-0.59); #Neutrophils 13.3 thou/uL (1.40-6.50); %Basophils 0.6 % (0.0-1.0); %Eosinophils 5.9 % (0.0-10.0); %Lymphocytes 4.9 % (21.0-51.0); %Monocytes 5.4 % (0.0-10.0); %Neutrophils 83.2 % (42.0-75.0); Hemoglobin 9.8 g/dL (14.0-18.0); Mean Corpuscular HGB CONC 32.8 g/dL (32.0-36.0); Mean Corpuscular Hemoglobin 29.2 pg (27.0-31.0); Mean Platelet Volume 7.9 fL (7.4-10.4); Platelet Count 234 thou/uL (130-400); RBC Distribution Width 13.2 % (11.5-14.5); Red Blood Cell (RBC) Count 3.36 mill/uL (4.70-6.10)
[2019-05-25 09:07] LABS: Anion Gap 18 mmol/L (10-20); BUN (Urea Nitrogen) 76 mg/dL (8.4-25.7); Calc. Creatinine Clearance 41 mL/min (70-130); Calcium 9.1 mg/dL (7.8-10.44); Carbon Dioxide 22 mmol/L (23-31); Chloride 102 mmol/L (98-107); Estimated GFR-MDRD 24; Glucose 179 mg/dL (80-115); Sodium 138 mmol/L (136-145)
[2019-05-25] MEDS: Saccharomyces boulardii 250 MG CAP PO SCH (09:10)
[2019-05-25] MEDS: Amlodipine 5 MG TAB PO SCH (09:10)
[2019-05-25] MEDS: HumaLOG 300 UNITS/3 ML VIAL SC PRN ×4 (09:11→21:53)
--- NOTE | 2019-05-25 10:35 | PRG ---
DATE OF SERVICE: 05/25/2019 SUBJECTIVE: Mr. Carroll is a 69-year-old white male, who was initially admitted for shortness of breath. Chest x-ray showed CHF and ? of pneumonia. Currently, on IV antibiotics and IV diuretics. Breathing is slowly improving. He still has some degree of orthopnea. Otherwise, this morning, no other new complaints. Cardiology has also evaluated this patient. Please note, his last cardiac echo showed an EF of 45%. We are seeing this patient for his acute kidney injury on top of possible chronic renal failure from diabetic nephropathy. OBJECTIVE: VITAL SIGNS: Blood pressure 141/67, heart rate 88, respiratory rate 20, temperature 97.7, and pulse ox 96% on 3 L. GENERAL: Awake, alert, comfortable, sitting, not in overt distress. SKIN: Adequate turgor. HEENT: Slightly pale conjunctivae. Anicteric sclerae. No neck mass. No carotid bruits. No JVD. CHEST: No deformities. LUNGS: Decreased breath sounds. HEART: Normal sinus rhythm. No murmur. No gallops. No rubs. ABDOMEN: Globular, soft, nontender. No masses. EXTREMITIES: Trace edema. MEDICATIONS: Medications of May 25, 2019, were reviewed. LABORATORY DATA: Laboratories of May 25, 2019; white count 16, hemoglobin 9.8. Sodium 138, potassium 4, chloride 102, carbon dioxide 22, BUN 76, creatinine 2.69, calcium 9.1. ASSESSMENT AND PLAN: 1. Shortness of breath, clinically improved. Most likely from congestive heart failure. Currently, on IV diuretics. 2. Acute kidney injury - superimposed hemodynamically-mediated renal dysfunction. Urine sodium noted to be on the low side early this month. The other possibility is that he may have an acute tubular necrosis from his vancomycin. No indication for any dialytic intervention. Renal function is stable. Creatinine is only minimally elevated compared to yesterday. I think this is a reflection of the current diuretic regimen. Continue current IV diuretics. If needed, we can decrease IV diuretics to once a day. 3. Borderline anemia. Continue to observe. 4. Chronic left foot infection - on IV antibiotics. ID is following. Agree with current management. Recheck basic metabolic panel, CBC in a.m. Job ID: [id number]
--- NOTE | 2019-05-25 10:41 | PDOC.HOSPP ---
- Subjective Encounter Date: 05/25/19 Encounter Time: 07:00 Subjective: Pt seen for followup re: acute hypoxic respiratory failure. Feels better. - Objective Vital Signs & Weight: Vital Signs (12 hours) Temp Pulse Resp BP BP Pulse Ox 05/25/19 07:50 97.7 F 88 20 141/67 H 96 05/25/19 07:16 74 16 92 L 05/25/19 03:05 97.4 F L 77 20 149/67 H 96 05/24/19 23:35 73 138/63 97 Weight Admit Weight 253 lb 11.2 oz Weight 242 lb 5 oz I&O: 05/24/19 05/25/19 05/26/19 06:59 06:59 06:59 Intake Total 1920 1300 1000 Output Total 800 1025 725 Balance 1120 275 275 Result Diagrams: 05/25/19 08:07 05/25/19 08:07 Additional Labs: Accuchecks 05/24/19 05/24/19 05/24/19 20:08 16:50 11:02 POC Glucose 262 H 236 H 257 H Labs and MARs reviewed by me EKG Reviewed by me: Yes (Tele: NSR) Hospitalist ROS - Review of Systems Respiratory: reports: SOB with excertion. denies: cough, shortness of breath, hemoptysis, pleuritic pain, wheezing Cardiovascular: reports: edema. denies: chest pain, palpitations, orthopnea, paroxysmal noc. dyspnea, light headedness - Medication Medications: Active Medications Generic Name Dose Route Start Last Admin Trade Name Freq PRN Reason Stop Dose Admin Acetaminophen 650 mg 05/22/19 16:59 05/24/19 21:19 Tylenol PO 650 mg Q4H PRN Administration Headache/Fever/Mild Pain (1-3) Albuterol/Ipratropium 3 ml 05/24/19 21:44 05/25/19 07:16 Duoneb NEB 3 ml [id number] PRN Administration SOB &/or Wheezing Amlodipine Besylate 5 mg 05/24/19 09:00 05/25/19 09:10 Norvasc PO 5 mg DAILY DEWAYNE Administration Atorvastatin Calcium 10 mg 05/23/19 21:00 05/24/19 21:18 Lipitor PO 10 mg HS DEWAYNE Administration Famotidine 20 mg 05/22/19 21:00 05/24/19 21:19 Pepcid SLOW IVP 20 mg QPM DEWAYNE Administration Furosemide 40 mg 05/23/19 06:00 05/25/19 06:32 Lasix SLOW IVP 40 mg 0600,1400 DEWAYNE Administration Hydralazine HCl 50 mg 05/23/19 06:00 05/25/19 06:32 Apresoline PO 50 mg Q6HR DEWAYNE Administration Ceftaroline Fosamil 300 mg/ 100 mls @ 100 mls/hr 05/23/19 21:00 05/25/19 09: 10 Sodium Chloride IVPB 100 mls Q12HR DEWAYNE Administration Insulin Human Lispro 0 units 05/22/19 17:02 05/25/19 09:11 Humalog SC 2 unit .MILD SLIDING SCALE PRN Administration Mild Correctional Scale Insulin Human Lispro 0 units 05/22/19 17:02 05/24/19 21:19 Humalog SC 3 unit .BEDTIME SLIDING SC PRN Administration Bedtime Correctional Scale Melatonin 3 mg 05/24/19 16:04 05/24/19 21:18 Melatonin PO 3 mg HSPRN PRN Administration Insomnia Saccharomyces Boulardii 250 mg 05/23/19 09:00 05/25/19 09:10 Florastor PO 250 mg DAILY DEWAYNE Administration - Exam General - other findings: Obese Eye: anicteric sclera ENT: moist mucosa Neck: supple Heart: RRR Respiratory: CTAB Gastrointestinal: soft, non-tender Extremities: no clubbing, 2+ LE edema Psychiatric: normal affect, normal behavior Hosp A/P (1) Acute respiratory failure with hypoxia Code(s): J96.01 - ACUTE RESPIRATORY FAILURE WITH HYPOXIA Status: Acute (2) Acute systolic CHF (congestive heart failure), NYHA class 3 Code(s): I50.21 - ACUTE SYSTOLIC (CONGESTIVE) HEART FAILURE Status: Acute (3) Diabetes mellitus Code(s): E11.9 - TYPE 2 DIABETES MELLITUS WITHOUT COMPLICATIONS Status: Chronic (4) Non-healing ulcer of left foot Code(s): L97.529 - NON-PRESSURE CHRONIC ULCER OTH PRT LEFT FOOT W UNSP SEVERITY Status: Chronic (5) HTN (hypertension) Code(s): I10 - ESSENTIAL (PRIMARY) HYPERTENSION Status: Chronic (6) Chronic kidney disease, stage 4 (severe) Code(s): N18.4 - CHRONIC KIDNEY DISEASE, STAGE 4 (SEVERE) Status: Chronic (7) Back pain Code(s): M54.9 - DORSALGIA, UNSPECIFIED Status: Resolved - Plan Continue furosemide. Pt has been started on ceftaroline. Continue accuchecks, insulin sliding scale. back pain has resolved.
[2019-05-25] MEDS: Atorvastatin Calcium 10 MG TAB PO SCH (21:51)
[2019-05-25] MEDS: Famotidine 20 MG TAB PO SCH (21:51)
[2019-05-25] MEDS ORDERED: Artificial Tears 18 DROP/0.9 ML EA EYE PRN (22:26)
[2019-05-25] MEDS: Temazepam 15 MG CAP PO PRN (23:22)
[2019-05-26 05:36] LABS: #Basophils 0.1 thou/uL (0.0-0.2); #Eosinphils 0.8 thou/uL (0.0-0.7); #Lymphocytes 0.9 thou/uL (1.20-3.40); #Monocytes 0.8 thou/uL (0.11-0.59); #Neutrophils 11.2 thou/uL (1.40-6.50); %Basophils 0.4 % (0.0-1.0); %Eosinophils 5.8 % (0.0-10.0); %Lymphocytes 6.3 % (21.0-51.0); %Monocytes 6.2 % (0.0-10.0); %Neutrophils 81.4 % (42.0-75.0); Hemoglobin 9.4 g/dL (14.0-18.0); Mean Corpuscular HGB CONC 33.5 g/dL (32.0-36.0); Mean Corpuscular Hemoglobin 29.6 pg (27.0-31.0); Mean Corpuscular Volume 88.1 fL (78.0-98.0); Mean Platelet Volume 8.2 fL (7.4-10.4); Platelet Count 202 thou/uL (130-400); RBC Distribution Width 13.3 % (11.5-14.5); Red Blood Cell (RBC) Count 3.17 mill/uL (4.70-6.10); White Blood Cell (WBC) Count 13.7 thou/uL (4.8-10.8)
[2019-05-26] MEDS: hydrALAZINE 25 MG TAB PO SCH ×4 (05:38→23:48)
[2019-05-26] MEDS: Furosemide 40 MG/4 ML VIAL SLOW IVP SCH ×2 (05:38→15:32)
[2019-05-26 05:55] LABS: Anion Gap 15 mmol/L (10-20); BUN (Urea Nitrogen) 71 mg/dL (8.4-25.7); Calc. Creatinine Clearance 43 mL/min (70-130); Calcium 9.2 mg/dL (7.8-10.44); Carbon Dioxide 23 mmol/L (23-31); Chloride 103 mmol/L (98-107); Estimated GFR-MDRD 24; Glucose 202 mg/dL (80-115); Potassium 4.1 mmol/L (3.5-5.1); Sodium 137 mmol/L (136-145)
--- NOTE | 2019-05-26 08:54 | PRG ---
DATE OF SERVICE: 05/26/2019 SUBJECTIVE: Mr. Carroll is a 69-year-old white male, who was admitted for shortness of breath secondary to CHF. He has also chronic osteomyelitis, receiving IV antibiotics. We are following up this patient for his acute kidney injury. Initial workup suggested he may have a vancomycin induced ATN. Over time, renal function has stabilized. It is not yet within normal baseline. No other complaints today. Shortness of breath is much improved. Currently he is on IV diuretics. Cardiology has seen this patient. Previous cardiac echo showed an EF of 45%. No other new complaints. OBJECTIVE: VITAL SIGNS: Blood pressure 155/69, heart rate 79, respiratory rate 22, temperature 97.4, pulse ox is 97%. GENERAL: Noted to be awake, alert, comfortable, not in overt distress. SKIN: Adequate turgor. HEENT: He has a slightly pale conjunctivae. Anicteric sclerae. NECK: No neck mass. No carotid bruits. No JVD. CHEST: No deformities. LUNGS: Decreased breath sounds. HEART: Normal sinus rhythm. No murmur. No gallops. No rubs. ABDOMEN: Globular, soft, nontender, no masses. EXTREMITIES: Positive for edema. MEDICATIONS: Of May 26, 2019, reviewed. LABORATORY DATA: Of May 26, 2019, white count 13.7, hemoglobin 9.4. Sodium 138, potassium 4, chloride 102, carbon dioxide 22, BUN 76, creatinine 2.69, GFR 24 mL/minute, calcium 9.1. ASSESSMENT AND PLAN: 1. Acute kidney injury - secondary to a possible prolonged acute tubular necrosis. Continue supportive care. Continue judicious use of diuretics. There is no indication for any dialytic intervention. 2. Shortness of breath/congestive heart failure, clinically much improved. Continue current supportive care. Please note, Cardiology is following up this patient. Job ID: [id number]
[2019-05-26] MEDS: Amlodipine 5 MG TAB PO SCH (10:00)
[2019-05-26] MEDS: Saccharomyces boulardii 250 MG CAP PO SCH (10:00)
--- NOTE | 2019-05-26 10:06 | PRG ---
DATE OF SERVICE: 05/26/2019 SUBJECTIVE: Mr. Carroll is doing about the same. He is really not diuresing very well, despite IV Lasix. OBJECTIVE: VITAL SIGNS: Blood pressure 155/69 and pulse 79. LUNGS: Clear. CARDIAC: Normal S1 and normal S2. EXTREMITIES: Still with severe edema. LABORATORY DATA: Creatinine is 2.68, unchanged. ASSESSMENT: Stage 4 renal failure. PLAN: 1. Consider give one dose of metolazone, but need to watch creatinine closely. We will hold off on that today, that may need to be considered tomorrow if he is still not diuresing. 2. He is bradycardic previously, I have not started beta blockers. 3. Try to minimize calcium blockers in view of the edema. Dr. Sow will return tomorrow. Job ID: [id number]
--- NOTE | 2019-05-26 10:12 | PDOC.CPN ---
- Subjective Date: 05/26/19 Time: 08:30 Interval history: The pt seen and examined. No overnight events. No cardiac complaints. Discussed with the pt about CHF management. He has been drinking 1/2 gallons of milk, 2 cups of hot chocolate, and more than 4 glasses of fluid a day at home. He will start watching fluid and salt intakes, keep his BLE elevated, and watch his blood glucose. - Objective Allergies/Adverse Reactions: Allergies Allergy/AdvReac Type Severity Reaction Status Date / Time No Known Drug Allergies Allergy Verified 05/01/19 22:59 Visit Medications: Current Medications Acetaminophen (Tylenol) 650 mg PO Q4H PRN PRN Reason: Headache/Fever/Mild Pain (1-3) Last Admin: 05/24/19 21:19 Dose: 650 mg Acetaminophen (Tylenol) 650 mg [place] Q4H PRN PRN Reason: Headache/Fever/Mild Pain (1-3) Albuterol/Ipratropium (Duoneb) 3 ml NEB [id number] PRN PRN Reason: SOB &/or Wheezing Last Admin: 05/25/19 22:20 Dose: 3 ml Amlodipine Besylate (Norvasc) 5 mg PO DAILY [facility] Last Admin: 05/26/19 10:00 Dose: 5 mg Artificial Tears (Tears Naturale) 2 drop EA EYE Q4H PRN PRN Reason: Dry Eyes Atorvastatin Calcium (Lipitor) 10 mg PO HS [facility] Last Admin: 05/25/19 21:51 Dose: 10 mg Clonidine (Catapres) 0.1 mg PO BID PRN PRN Reason: SBP Greater Than 180 Dextrose/Water (Dextrose 50%) 25 gm SLOW IVP PRN PRN PRN Reason: Hypoglycemia Famotidine (Pepcid) 20 mg PO QPM [facility] Last Admin: 05/25/19 21:51 Dose: 20 mg Furosemide (Lasix) 40 mg SLOW IVP 0600,1400 DEWAYNE Last Admin: 05/26/19 05:38 Dose: 40 mg Glucagon (Glucagon) 1 mg IM PRN PRN PRN Reason: Hypoglycemia Hydralazine HCl (Apresoline) 50 mg PO Q6HR DEWAYNE Last Admin: 05/26/19 05:38 Dose: 50 mg Dextrose/Water (D5w) 1,000 mls @ 0 mls/hr IV .Q0M PRN PRN Reason: Hypoglycemia Ceftaroline Fosamil 300 mg/ (Sodium Chloride) 100 mls @ 100 mls/hr IVPB Q12HR [facility] Last Admin: 05/26/19 10:00 Dose: 100 mls Insulin Human Lispro (Humalog) 0 units SC .MILD SLIDING SCALE PRN PRN Reason: Mild Correctional Scale Last Admin: 05/25/19 17:12 Dose: 4 unit Insulin Human Lispro (Humalog) 0 units SC .BEDTIME SLIDING SC PRN PRN Reason: Bedtime Correctional Scale Last Admin: 05/25/19 21:53 Dose: 3 unit Melatonin (Melatonin) 3 mg PO HSPRN PRN PRN Reason: Insomnia Last Admin: 05/24/19 21:18 Dose: 3 mg Ondansetron HCl (Zofran Odt) 4 mg PO Q6H PRN PRN Reason: Nausea/Vomiting Ondansetron HCl (Zofran) 4 mg IVP Q6H PRN PRN Reason: Nausea/Vomiting Saccharomyces Boulardii (Florastor) 250 mg PO DAILY [facility] Last Admin: 05/26/19 10:00 Dose: 250 mg Sodium Chloride (Flush - Normal Saline) 10 ml IVF Q12HR PRN PRN Reason: Saline Flush Sodium Chloride (Flush - Normal Saline) 10 ml IVF PRN PRN PRN Reason: Saline Flush Temazepam (Restoril) 15 mg PO HSPRN PRN PRN Reason: Insomnia Last Admin: 05/25/19 23:22 Dose: 15 mg Vital Signs & Weight: Vital Signs Temp Pulse Resp BP BP Pulse Ox 05/26/19 09:50 97.8 F 89 16 140/61 93 L 05/26/19 06:09 99 05/26/19 03:15 97.4 F L 79 22 H 155/69 H 97 05/25/19 23:24 97.4 F L 81 18 148/70 H 96 05/25/19 22:20 80 16 Admit Weight 253 lb 11.2 oz Weight 248 lb 8 oz - Labs Result Diagrams: 05/26/19 05:13 05/26/19 05:13 Troponin/CKMB CK-MB (CK-2) 2.9 ng/mL (0-6.6) 05/22/19 23:26 Troponin I 0.622 ng/mL (< 0.028) H* 11/14/19 23:26 - Assessment/Plan Assessment/Plan: 1. Acute on Chronic Systolic HF - Resp. failure has been improving with Lasix 40mg IV BID; Not on BBlocker due to hx of bradycardia; not on COLLIN/ARB due to hx of CKD; 2. KENZIE on CKD stage 4 - unchanged; managed by Dr Mckenzie 3. HTN - stable with Norvasc 5mg qd; 4. 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 CAD with angioplasty in 1995 - . Hx of Bradycardia - HR has remained in SR with HR 70-80s. Wearing EVR for 30 days. MAR reviewed * Echo in 04/2019 with EF 45-50%, akinetic apex, midly dilated LA, mild ERV, mild-mod MR, mild , and mild TR
[2019-05-26] MEDS ORDERED: Polyethylene Glycol 3350 17 GM Packet PO SCH (11:15)
--- NOTE | 2019-05-26 13:18 | PDOC.HOSPP ---
- Subjective Encounter Date: 05/26/19 Encounter Time: 07:20 Subjective: Pt seen for followup re: acute hypoxic respiratory failure. feels okay, no complaints. - Objective Vital Signs & Weight: Vital Signs (12 hours) Temp Pulse Resp BP Pulse Ox 05/26/19 11:28 97.9 F 89 22 H 142/65 H 92 L 05/26/19 09:50 97.8 F 89 16 140/61 93 L 05/26/19 06:09 99 05/26/19 03:15 97.4 F L 79 22 H 155/69 H 97 Weight Admit Weight 253 lb 11.2 oz Weight 248 lb 8 oz I&O: 05/25/19 05/26/19 05/27/19 06:59 06:59 06:59 Intake Total 1300 2580 800 Output Total 1025 1325 1100 Balance 275 1255 -300 Result Diagrams: 05/26/19 05:13 05/26/19 05:13 Additional Labs: Accuchecks 05/26/19 05/26/19 05/25/19 11:30 05:04 20:18 POC Glucose 241 H 213 H 293 H 05/25/19 05/25/19 16:51 05:49 POC Glucose 291 H 187 H Labs and MARs reviewed by me EKG Reviewed by me: Yes (Tele: NSR) Hospitalist ROS - Review of Systems Cardiovascular: reports: edema. denies: chest pain, palpitations, orthopnea, paroxysmal noc. dyspnea, light headedness Gastrointestinal: denies: nausea, vomiting, abdominal pain, diarrhea, constipation, melena, hematochezia - Medication Medications: Active Medications Generic Name Dose Route Start Last Admin Trade Name Freq PRN Reason Stop Dose Admin Acetaminophen 650 mg 05/22/19 16:59 05/24/19 21:19 Tylenol PO 650 mg Q4H PRN Administration Headache/Fever/Mild Pain (1-3) Albuterol/Ipratropium 3 ml 05/24/19 21:44 05/25/19 22:20 Duoneb NEB 3 ml [id number] PRN Administration SOB &/or Wheezing Amlodipine Besylate 5 mg 05/24/19 09:00 05/26/19 10:00 Norvasc PO 5 mg DAILY DEWAYNE Administration Atorvastatin Calcium 10 mg 05/23/19 21:00 05/25/19 21:51 Lipitor PO 10 mg HS DEWAYNE Administration Famotidine 20 mg 05/25/19 21:00 05/25/19 21:51 Pepcid PO 20 mg QPM DEWAYNE Administration Furosemide 40 mg 05/23/19 06:00 05/26/19 05:38 Lasix SLOW IVP 40 mg 0600,1400 DEWAYNE Administration Hydralazine HCl 50 mg 05/23/19 06:00 05/26/19 11:17 Apresoline PO 50 mg Q6HR DEWAYNE Administration Ceftaroline Fosamil 300 mg/ 100 mls @ 100 mls/hr 05/23/19 21:00 05/26/19 10: 00 Sodium Chloride IVPB 100 mls Q12HR DEWAYNE Administration Insulin Human Lispro 0 units 05/22/19 17:02 05/25/19 17:12 Humalog SC 4 unit .MILD SLIDING SCALE PRN Administration Mild Correctional Scale Insulin Human Lispro 0 units 05/22/19 17:02 05/25/19 21:53 Humalog SC 3 unit .BEDTIME SLIDING SC PRN Administration Bedtime Correctional Scale Melatonin 3 mg 05/24/19 16:04 05/24/19 21:18 Melatonin PO 3 mg HSPRN PRN Administration Insomnia Ondansetron HCl 4 mg 05/22/19 16:59 05/26/19 11:17 Zofran IVP 4 mg Q6H PRN Administration Nausea/Vomiting Saccharomyces Boulardii 250 mg 05/23/19 09:00 05/26/19 10:00 Florastor PO 250 mg DAILY DEWAYNE Administration Temazepam 15 mg 05/25/19 22:26 05/25/19 23:22 Restoril PO 15 mg HSPRN PRN Administration Insomnia - Exam General - other findings: Obesity Eye: anicteric sclera ENT: no oropharyngeal lesions, moist mucosa Neck: supple, JVD Heart: RRR, no rubs Respiratory - other findings: Eric crackles Gastrointestinal: soft, non-tender Extremities: 2+ LE edema Musculoskeletal: no muscle wasting Psychiatric: normal affect, normal behavior Hosp A/P (1) Acute respiratory failure with hypoxia Code(s): J96.01 - ACUTE RESPIRATORY FAILURE WITH HYPOXIA Status: Acute (2) Acute systolic CHF (congestive heart failure), NYHA class 3 Code(s): I50.21 - ACUTE SYSTOLIC (CONGESTIVE) HEART FAILURE Status: Acute (3) Diabetes mellitus Code(s): E11.9 - TYPE 2 DIABETES MELLITUS WITHOUT COMPLICATIONS Status: Chronic (4) Non-healing ulcer of left foot Code(s): L97.529 - NON-PRESSURE CHRONIC ULCER OTH PRT LEFT FOOT W UNSP SEVERITY Status: Chronic (5) HTN (hypertension) Code(s): I10 - ESSENTIAL (PRIMARY) HYPERTENSION Status: Chronic (6) Chronic kidney disease, stage 4 (severe) Code(s): N18.4 - CHRONIC KIDNEY DISEASE, STAGE 4 (SEVERE) Status: Chronic (7) Back pain Code(s): M54.9 - DORSALGIA, UNSPECIFIED Status: Resolved - Plan Continue furosemide. Continue ceftaroline. Continue accuchecks, insulin sliding scale. Pt c/o depression, trial Lexapro.
[2019-05-26] MEDS ORDERED: Escitalopram Oxalate 10 mg Tablet PO SCH (14:15)
[2019-05-26] MEDS: HumaLOG 300 UNITS/3 ML VIAL SC PRN ×2 (18:18→20:29)
[2019-05-26] MEDS: Famotidine 20 MG TAB PO SCH (20:29)
[2019-05-26] MEDS: Temazepam 15 MG CAP PO PRN (20:29)
[2019-05-26] MEDS: Atorvastatin Calcium 10 MG TAB PO SCH (20:30)
[2019-05-27 04:37] LABS: #Basophils 0.1 thou/uL (0.0-0.2); #Eosinphils 0.8 thou/uL (0.0-0.7); #Lymphocytes 0.8 thou/uL (1.20-3.40); #Monocytes 0.8 thou/uL (0.11-0.59); #Neutrophils 9.4 thou/uL (1.40-6.50); %Eosinophils 6.9 % (0.0-10.0); %Lymphocytes 6.4 % (21.0-51.0); %Neutrophils 78.7 % (42.0-75.0); Mean Corpuscular Hemoglobin 28.9 pg (27.0-31.0); Mean Corpuscular Volume 87.4 fL (78.0-98.0); Mean Platelet Volume 8.2 fL (7.4-10.4); Platelet Count 194 thou/uL (130-400); RBC Distribution Width 13.2 % (11.5-14.5); Red Blood Cell (RBC) Count 3.11 mill/uL (4.70-6.10)
[2019-05-27 04:54] LABS: Anion Gap 14 mmol/L (10-20); BUN (Urea Nitrogen) 76 mg/dL (8.4-25.7); Calc. Creatinine Clearance 42 mL/min (70-130); Calcium 9.4 mg/dL (7.8-10.44); Carbon Dioxide 27 mmol/L (23-31); Chloride 100 mmol/L (98-107); Estimated GFR-MDRD 23; Glucose 178 mg/dL (80-115); Potassium 4.7 mmol/L (3.5-5.1); Sodium 136 mmol/L (136-145)
[2019-05-27] MEDS: hydrALAZINE 25 MG TAB PO SCH ×3 (05:56→17:51)
[2019-05-27] MEDS: Furosemide 40 MG/4 ML VIAL SLOW IVP SCH ×2 (05:57→14:24)
[2019-05-27] MEDS ORDERED: Albumin 25% 25 GM/100 ML BOT IVPB ONE (08:07)
--- NOTE | 2019-05-27 08:23 | PRG ---
DATE OF SERVICE: 05/27/2019 SUBJECTIVE: Mr. Carroll is a 69-year-old white male, who was admitted for shortness of breath secondary to congestive heart failure. His CHF is much improved. He was placed on diuretics. Currently, on Lasix 40 mg IV q.12. We are following him up for his acute kidney injury secondary to presumed ischemic ATN. Renal function has been slowly declining in the last several days. Most recent creatinine is now noted at 2.73 and this was 2.68 yesterday. My plan is to add an albumin infusion to enhance the diuretic effect of his Lasix. No other complaints. No chest pain or shortness of breath. OBJECTIVE: VITAL SIGNS: Blood pressure 140/68, heart rate 80, respiratory rate 20, temperature 97.4, and pulse ox 97%. GENERAL: Noted to be awake, alert, sitting comfortable, not in distress. SKIN: Adequate turgor. HEENT: He has slightly pale conjunctivae. Anicteric sclerae. NECK: No neck mass. No carotid bruits. No JVD. CHEST: No deformities. LUNGS: Decreased breath sounds. HEART: Normal sinus rhythm. No murmurs. No gallops. No rubs. ABDOMEN: Globular, soft, and nontender. No masses. EXTREMITIES: Positive for edema. MEDICATIONS: Medication of May 27, 2019, was reviewed. LABORATORY DATA: Laboratories of May 27, 2019; white count 12, hemoglobin 9. Sodium 137, potassium 4.1, chloride 103, carbon dioxide 23, BUN 71, and creatinine 2.68. On May 27, 2019; sodium 136, potassium 4.7, chloride 100, carbon dioxide 27, BUN 76, creatinine 2.73, glucose 178, and calcium 9.4. ASSESSMENT AND PLAN: 1. Acute kidney injury - secondary to presumed ischemic acute tubular necrosis, slightly higher creatinine today. My plan is to give albumin 25 g IV q.6 for 4 doses. Continue current Lasix at 40 mg IV q.12. 2. Congestive heart failure, clinically much improved. Last ejection fraction was noted at 45%. 3. Chronic left foot infection/osteomyelitis, on antibiotics. ID is following. Recheck CBC and basic metabolic panel in a.m. Job ID: [id number]
--- NOTE | 2019-05-27 08:41 | PDOC.CPN ---
- Subjective Date: 05/27/19 Time: 08:43 Interval history: The pt seen and examined. No overnight events. No cardiac complaints. - Objective Allergies/Adverse Reactions: Allergies Allergy/AdvReac Type Severity Reaction Status Date / Time No Known Drug Allergies Allergy Verified 05/01/19 22:59 Visit Medications: Current Medications Acetaminophen (Tylenol) 650 mg PO Q4H PRN PRN Reason: Headache/Fever/Mild Pain (1-3) Last Admin: 05/24/19 21:19 Dose: 650 mg Acetaminophen (Tylenol) 650 mg GA Q4H PRN PRN Reason: Headache/Fever/Mild Pain (1-3) Albumin Human (Albumin 25%) 25 gm IVPB Q6H [facility] Stop: 05/28/19 03:01 Albuterol/Ipratropium (Duoneb) 3 ml NEB [id number] PRN PRN Reason: SOB &/or Wheezing Last Admin: 05/26/19 19:21 Dose: 3 ml Amlodipine Besylate (Norvasc) 5 mg PO DAILY [facility] Last Admin: 05/26/19 10:00 Dose: 5 mg Artificial Tears (Tears Naturale) 2 drop EA EYE Q4H PRN PRN Reason: Dry Eyes Last Admin: 05/26/19 20:29 Dose: 2 drop Atorvastatin Calcium (Lipitor) 10 mg PO HS [facility] Last Admin: 05/26/19 20:30 Dose: 10 mg Clonidine (Catapres) 0.1 mg PO BID PRN PRN Reason: SBP Greater Than 180 Dextrose/Water (Dextrose 50%) 25 gm SLOW IVP PRN PRN PRN Reason: Hypoglycemia Escitalopram Oxalate (Lexapro) 10 mg PO DAILY [facility] Famotidine (Pepcid) 20 mg PO QPM [facility] Last Admin: 05/26/19 20:29 Dose: 20 mg Furosemide (Lasix) 40 mg SLOW IVP 0600,1400 [facility] Last Admin: 05/27/19 05:57 Dose: 40 mg Glucagon (Glucagon) 1 mg IM PRN PRN PRN Reason: Hypoglycemia Hydralazine HCl (Apresoline) 50 mg PO Q6HR [facility] Last Admin: 05/27/19 05:56 Dose: 50 mg Dextrose/Water (D5w) 1,000 mls @ 0 mls/hr IV .Q0M PRN PRN Reason: Hypoglycemia Ceftaroline Fosamil 300 mg/ (Sodium Chloride) 100 mls @ 100 mls/hr IVPB Q12HR [facility]WAYNE Last Admin: 05/26/19 20:28 Dose: 100 mls Insulin Human Lispro (Humalog) 0 units SC .MILD SLIDING SCALE PRN PRN Reason: Mild Correctional Scale Last Admin: 05/26/19 18:18 Dose: 5 unit Insulin Human Lispro (Humalog) 0 units SC .BEDTIME SLIDING SC PRN PRN Reason: Bedtime Correctional Scale Last Admin: 05/26/19 20:29 Dose: 4 unit Melatonin (Melatonin) 3 mg PO HSPRN PRN PRN Reason: Insomnia Last Admin: 05/24/19 21:18 Dose: 3 mg Polyethylene Glycol (Miralax) 17 gm PO DAILY [facility] Saccharomyces Boulardii (Florastor) 250 mg PO DAILY [facility] Last Admin: 05/26/19 10:00 Dose: 250 mg Sodium Chloride (Flush - Normal Saline) 10 ml IVF Q12HR PRN PRN Reason: Saline Flush Sodium Chloride (Flush - Normal Saline) 10 ml IVF PRN PRN PRN Reason: Saline Flush Temazepam (Restoril) 15 mg PO HSPRN PRN PRN Reason: Insomnia Last Admin: 05/26/19 20:29 Dose: 15 mg Vital Signs & Weight: Vital Signs Temp Pulse Resp BP BP Pulse Ox 05/27/19 04:00 97.4 F L 80 20 140/68 97 05/26/19 23:50 97.4 F L 92 21 H 127/60 97 05/26/19 23:48 80 Admit Weight 253 lb 11.2 oz Weight 249 lb 5 oz - Physical Exam General: alert & oriented x3 HEENT: mucus membranes moist Neck: supple neck Cardiac: regular rate and rhythm, S1/S2 Lungs: decreased breath sounds Neuro: cranial nerve 2-12 intact Abdomen: unremarkable Extremities: no cyanosis - Labs Result Diagrams: 05/27/19 04:01 05/27/19 04:01 Troponin/CKMB CK-MB (CK-2) 2.9 ng/mL (0-6.6) 05/22/19 23:26 Troponin I 0.622 ng/mL (< 0.028) H* 05/22/19 23:26 - Telemetry Sinus rhythms and dysrhythmias: sinus rhythm - Assessment/Plan Assessment/Plan: 1. Acute on Chronic Systolic HF - cont. BLE edema with Lasix 40mg IV BID; Albumin IV will be ordered by Dr Mckenzie today; If no improvement with Albumin, then possible will start metolazone; Not on BBlocker due to hx of bradycardia; not on COLLIN/ARB due to hx of CKD; 2. KENZIE on CKD stage 4 - slightly worsened today; managed by Dr Mckenzie 3. HTN - stable with Norvasc 5mg qd; 4. DM type 2 - managed by PCP; instructed the pt to cut down hot chocolate in AM 5. 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 CAD with angioplasty in 1995 - . Hx of Bradycardia - HR has remained in SR with HR 70-80s. Wearing EVR for 30 days. MAR reviewed * Echo in 04/2019 with EF 45-50%, akinetic apex, midly dilated LA, mild ERV, mild-mod MR, mild , and mild TR Pt. seen and eval. by me. I agree with the A/P by the ANODE WORKER. He says that he is feeling better. Chest clear. RRR. Lower extremity edema to thighs. Continue present meds. Renal function is an issue with vol. overload but certain degree of third spacing.
[2019-05-27] MEDS ORDERED: Albumin 25% 25 GM/100 ML BOT IVPB SCH (09:00)
[2019-05-27] MEDS: HumaLOG 300 UNITS/3 ML VIAL SC PRN ×4 (09:44→20:12)
[2019-05-27] MEDS: Amlodipine 5 MG TAB PO SCH (09:44)
[2019-05-27] MEDS: Escitalopram Oxalate 10 mg Tablet PO SCH (09:44)
[2019-05-27] MEDS: Polyethylene Glycol 3350 17 GM Packet PO SCH (09:44)
[2019-05-27] MEDS: Saccharomyces boulardii 250 MG CAP PO SCH (09:44)
[2019-05-27] MEDS ORDERED: Bisacodyl 5 MG TAB PO SCH (10:15)
[2019-05-27] MEDS: Albumin 25% 25 GM/100 ML BOT IVPB SCH ×2 (11:20→17:53)
--- NOTE | 2019-05-27 13:45 | PDOC.HOSPP ---
- Subjective Encounter Date: 05/27/19 Encounter Time: 07:20 Subjective: Pt seen for followup re: acute hypoxic respiratory failure. Feels better. - Objective Vital Signs & Weight: Vital Signs (12 hours) Temp Pulse Resp BP BP Pulse Ox 05/27/19 11:43 97.7 F 88 17 148/68 H 95 05/27/19 09:41 97.4 F L 80 22 H 142/68 H 97 05/27/19 04:00 97.4 F L 80 20 140/68 97 Weight Admit Weight 253 lb 11.2 oz Weight 249 lb 8 oz I&O: 05/26/19 05/27/19 05/28/19 06:59 06:59 06:59 Intake Total 2580 2810 Output Total 1325 2860 Balance 1255 -50 Result Diagrams: 05/27/19 04:01 05/27/19 04:01 Additional Labs: Accuchecks 05/27/19 05/26/19 05/26/19 05:19 20:21 17:00 POC Glucose 194 H 316 H 326 H labs and MARs reviewed by me EKG Reviewed by me: Yes (Tele; NSR) Hospitalist ROS - Review of Systems Respiratory: reports: SOB with excertion. denies: cough, shortness of breath, pleuritic pain, wheezing Cardiovascular: denies: chest pain, palpitations, orthopnea, paroxysmal noc. dyspnea, edema, light headedness - Medication Medications: Active Medications Generic Name Dose Route Start Last Admin Trade Name Freq PRN Reason Stop Dose Admin Acetaminophen 650 mg 05/22/19 16:59 05/24/19 21:19 Tylenol PO 650 mg Q4H PRN Administration Headache/Fever/Mild Pain (1-3) Albumin Human 25 gm 05/27/19 12:00 05/27/19 11:20 Albumin 25% IVPB 05/28/19 06:01 25 gm Q6HR DEWAYNE Administration Albuterol/Ipratropium 3 ml 05/24/19 21:44 05/26/19 19:21 Duoneb NEB 3 ml [id number] PRN Administration SOB &/or Wheezing Amlodipine Besylate 5 mg 05/24/19 09:00 05/27/19 09:44 Norvasc PO 5 mg DAILY DEWAYNE Administration Artificial Tears 2 drop 05/25/19 22:26 05/26/19 20:29 Tears Naturale EA EYE 2 drop Q4H PRN Administration Dry Eyes Atorvastatin Calcium 10 mg 05/23/19 21:00 05/26/19 20:30 Lipitor PO 10 mg HS DEWAYNE Administration Escitalopram Oxalate 10 mg 05/27/19 09:00 05/27/19 09:44 Lexapro PO 10 mg DAILY DEWAYNE Administration Famotidine 20 mg 05/25/19 21:00 05/26/19 20:29 Pepcid PO 20 mg QPM DEWAYNE Administration Furosemide 40 mg 05/23/19 06:00 05/27/19 05:57 Lasix SLOW IVP 40 mg 0600,1400 DEWAYNE Administration Hydralazine HCl 50 mg 05/23/19 06:00 05/27/19 12:07 Apresoline PO 50 mg Q6HR DEWAYNE Administration Ceftaroline Fosamil 300 mg/ 100 mls @ 100 mls/hr 05/23/19 21:00 05/27/19 10: 17 Sodium Chloride IVPB 100 mls Q12HR DEWAYNE Administration Insulin Human Lispro 0 units 05/22/19 17:02 05/27/19 11:40 Humalog SC 5 unit .MILD SLIDING SCALE PRN Administration Mild Correctional Scale Insulin Human Lispro 0 units 05/22/19 17:02 05/26/19 20:29 Humalog SC 4 unit .BEDTIME SLIDING SC PRN Administration Bedtime Correctional Scale Melatonin 3 mg 05/24/19 16:04 05/24/19 21:18 Melatonin PO 3 mg HSPRN PRN Administration Insomnia Polyethylene Glycol 17 gm 05/27/19 09:00 05/27/19 09:44 Miralax PO 17 gm DAILY DEWAYNE Administration Saccharomyces Boulardii 250 mg 05/23/19 09:00 05/27/19 09:44 Florastor PO 250 mg DAILY DEWAYNE Administration Temazepam 15 mg 05/25/19 22:26 05/26/19 20:29 Restoril PO 15 mg HSPRN PRN Administration Insomnia - Exam General - other findings: Obese Eye: anicteric sclera ENT: moist mucosa Neck: supple Heart: RRR, no rubs Respiratory: CTAB Gastrointestinal: soft, non-distended Extremities: no clubbing, 2+ LE edema Skin: no rashes Psychiatric: normal affect, normal behavior Hosp A/P (1) Acute respiratory failure with hypoxia Code(s): J96.01 - ACUTE RESPIRATORY FAILURE WITH HYPOXIA Status: Acute (2) Acute systolic CHF (congestive heart failure), NYHA class 3 Code(s): I50.21 - ACUTE SYSTOLIC (CONGESTIVE) HEART FAILURE Status: Acute (3) Diabetes mellitus Code(s): E11.9 - TYPE 2 DIABETES MELLITUS WITHOUT COMPLICATIONS Status: Chronic (4) Non-healing ulcer of left foot Code(s): L97.529 - NON-PRESSURE CHRONIC ULCER OTH PRT LEFT FOOT W UNSP SEVERITY Status: Chronic (5) HTN (hypertension) Code(s): I10 - ESSENTIAL (PRIMARY) HYPERTENSION Status: Chronic (6) Chronic kidney disease, stage 4 (severe) Code(s): N18.4 - CHRONIC KIDNEY DISEASE, STAGE 4 (SEVERE) Status: Chronic (7) Back pain Code(s): M54.9 - DORSALGIA, UNSPECIFIED Status: Resolved - Plan continue antibiotics, PT/OT, out of bed/ambulate Pt still need supplemental oxygen. Continue furosemide. Continue ceftaroline. Continue accuchecks, insulin sliding scale. Started on lexapro.
[2019-05-27] MEDS ORDERED: Magnesium Citrate 300 ML BOT PO SCH (15:00)
[2019-05-27] MEDS: Famotidine 20 MG TAB PO SCH (20:11)
[2019-05-27] MEDS: Atorvastatin Calcium 10 MG TAB PO SCH (20:11)
[2019-05-27] MEDS: Temazepam 15 MG CAP PO PRN (20:11)
[2019-05-28] MEDS: hydrALAZINE 25 MG TAB PO SCH ×4 (00:13→17:36)
[2019-05-28] MEDS: Albumin 25% 25 GM/100 ML BOT IVPB SCH ×2 (00:13→05:34)
[2019-05-28] MEDS: Furosemide 40 MG/4 ML VIAL SLOW IVP SCH ×2 (05:34→14:50)
[2019-05-28 05:42] LABS: #Basophils 0.1 thou/uL (0.0-0.2); #Eosinphils 0.7 thou/uL (0.0-0.7); #Lymphocytes 0.7 thou/uL (1.20-3.40); #Monocytes 0.7 thou/uL (0.11-0.59); #Neutrophils 9.3 thou/uL (1.40-6.50); %Eosinophils 6.2 % (0.0-10.0); %Lymphocytes 6.2 % (21.0-51.0); %Monocytes 5.6 % (0.0-10.0); Hemoglobin 8.6 g/dL (14.0-18.0); Mean Corpuscular HGB CONC 33.4 g/dL (32.0-36.0); Mean Corpuscular Hemoglobin 29.6 pg (27.0-31.0); Mean Corpuscular Volume 88.8 fL (78.0-98.0); Mean Platelet Volume 8.7 fL (7.4-10.4); Platelet Count 159 thou/uL (130-400); RBC Distribution Width 13.2 % (11.5-14.5); Red Blood Cell (RBC) Count 2.89 mill/uL (4.70-6.10); White Blood Cell (WBC) Count 11.5 thou/uL (4.8-10.8)
[2019-05-28 05:51] LABS: Anion Gap 13 mmol/L (10-20); BUN (Urea Nitrogen) 79 mg/dL (8.4-25.7); Calc. Creatinine Clearance 42 mL/min (70-130); Calcium 9.4 mg/dL (7.8-10.44); Carbon Dioxide 27 mmol/L (23-31); Chloride 100 mmol/L (98-107); Estimated GFR-MDRD 24; Glucose 182 mg/dL (80-115); Potassium 4.3 mmol/L (3.5-5.1); Sodium 136 mmol/L (136-145)
--- NOTE | 2019-05-28 08:22 | PRG ---
DATE OF SERVICE: 05/28/2019 HISTORY OF PRESENT ILLNESS: Mr. Carroll is a 69-year-old white male with history of acute kidney injury secondary to a drug induced ATN. We are following him up for his acute kidney injury. Renal function is stable. This has gone back to normal baseline. He was also initially admitted for CHF. He is currently receiving diuretics. I gave him albumin infusion to enhance urine output as well as to maintain his intravascular volume. No other complaints today. His shortness of breath is improved. OBJECTIVE: VITAL SIGNS: Blood pressure 144/67, heart rate 71, respiratory rate 20, temperature 97.6 and pulse ox 95%. GENERAL: Awake, alert, comfortable, not in overt distress. SKIN: Adequate turgor. HEENT: He has slightly pale conjunctivae. Anicteric sclerae. No neck mass. No carotid bruits. No JVD. CHEST: No deformities. LUNGS: Decreased breath sounds. HEART: Normal sinus rhythm. No murmur. No gallops. No rubs. ABDOMEN: Globular, soft, nontender. No masses. EXTREMITIES: No edema. No deformities. MEDICATIONS: Medications of May 28, 2019, reviewed. LABORATORY DATA: May 28, 2019; white count 11.5, hemoglobin 8.6, sodium 136, potassium 4.3, chloride 100, carbon dioxide 27, BUN 79, creatinine 2.69, glucose 182, calcium 9.4. Hemoglobin 8.6. ASSESSMENT/PLAN: 1. Acute kidney injury - secondary to acute tubular necrosis - drug induced. Continue supportive care. Stable renal function. Creatinine was noted at 2.69 today, which is slightly improved from yesterday's value of 2.73. He currently has stage IV chronic renal failure. No indication for any emergent dialysis. 2. Congestive heart failure, clinically much improved. Continue current diuretic regimen. Please note, patient is status post albumin infusion. 3. Chronic left foot infection/osteomyelitis on antibiotics. ID is following. 4. We will recheck basic metabolic panel and CBC in a.m. Job ID: [id number] MTDD
[2019-05-28] MEDS: Amlodipine 5 MG TAB PO SCH (09:15)
[2019-05-28] MEDS: Bisacodyl 5 MG TAB PO SCH (09:15)
[2019-05-28] MEDS: Escitalopram Oxalate 10 mg Tablet PO SCH (09:16)
[2019-05-28] MEDS: Saccharomyces boulardii 250 MG CAP PO SCH (09:16)
[2019-05-28] MEDS: Polyethylene Glycol 3350 17 GM Packet PO SCH (09:16)
[2019-05-28] MEDS: HumaLOG 300 UNITS/3 ML VIAL SC PRN ×4 (09:20→20:59)
[2019-05-28] MEDS ORDERED: Ondansetron PF 4 MG/2 ML Vial IVP PRN (11:44)
--- NOTE | 2019-05-28 12:16 | PDOC.CPN ---
- Subjective Date: 05/28/19 Time: 08:30 Interval history: The pt seen and examined. No overnight events. No cardiac complaints. - Objective Allergies/Adverse Reactions: Allergies Allergy/AdvReac Type Severity Reaction Status Date / Time No Known Drug Allergies Allergy Verified 05/01/19 22:59 Visit Medications: Current Medications Acetaminophen (Tylenol) 650 mg PO Q4H PRN PRN Reason: Headache/Fever/Mild Pain (1-3) Last Admin: 05/24/19 21:19 Dose: 650 mg Acetaminophen (Tylenol) 650 mg [place] Q4H PRN PRN Reason: Headache/Fever/Mild Pain (1-3) Albuterol/Ipratropium (Duoneb) 3 ml NEB [id number] PRN PRN Reason: SOB &/or Wheezing Last Admin: 05/26/19 19:21 Dose: 3 ml Amlodipine Besylate (Norvasc) 5 mg PO DAILY [facility] Last Admin: 05/28/19 09:15 Dose: 5 mg Artificial Tears (Tears Naturale) 2 drop EA EYE Q4H PRN PRN Reason: Dry Eyes Last Admin: 05/26/19 20:29 Dose: 2 drop Atorvastatin Calcium (Lipitor) 10 mg PO HS [facility] Last Admin: 05/27/19 20:11 Dose: 10 mg Bisacodyl (Dulcolax) 10 mg PO DAILY [facility] Last Admin: 05/28/19 09:15 Dose: 10 mg Clonidine (Catapres) 0.1 mg PO BID PRN PRN Reason: SBP Greater Than 180 Dextrose/Water (Dextrose 50%) 25 gm SLOW IVP PRN PRN PRN Reason: Hypoglycemia Escitalopram Oxalate (Lexapro) 10 mg PO DAILY [facility] Last Admin: 05/28/19 09:16 Dose: 10 mg Famotidine (Pepcid) 20 mg PO QPM [facility] Last Admin: 05/27/19 20:11 Dose: 20 mg Furosemide (Lasix) 40 mg SLOW IVP 0600,1400 [facility] Last Admin: 05/28/19 05:34 Dose: 40 mg Glucagon (Glucagon) 1 mg IM PRN PRN PRN Reason: Hypoglycemia Hydralazine HCl (Apresoline) 50 mg PO Q6HR [facility] Last Admin: 05/28/19 12:06 Dose: 50 mg Dextrose/Water (D5w) 1,000 mls @ 0 mls/hr IV .Q0M PRN PRN Reason: Hypoglycemia Ceftaroline Fosamil 300 mg/ (Sodium Chloride) 100 mls @ 100 mls/hr IVPB Q12HR [facility] Last Admin: 05/28/19 10:11 Dose: 100 mls Insulin Human Lispro (Humalog) 0 units SC .MILD SLIDING SCALE PRN PRN Reason: Mild Correctional Scale Last Admin: 05/28/19 12:12 Dose: 3 unit Insulin Human Lispro (Humalog) 0 units SC .BEDTIME SLIDING SC PRN PRN Reason: Bedtime Correctional Scale Last Admin: 05/27/19 20:12 Dose: 2 unit Melatonin (Melatonin) 3 mg PO HSPRN PRN PRN Reason: Insomnia Last Admin: 05/24/19 21:18 Dose: 3 mg Ondansetron HCl (Zofran) 4 mg IVP Q6H PRN PRN Reason: Nausea/Vomiting Last Admin: 05/28/19 12:06 Dose: 4 mg Polyethylene Glycol (Miralax) 17 gm PO DAILY [facility] Last Admin: 05/28/19 09:16 Dose: 17 gm Saccharomyces Boulardii (Florastor) 250 mg PO DAILY [facility] Last Admin: 05/28/19 09:16 Dose: 250 mg Sodium Chloride (Flush - Normal Saline) 10 ml IVF Q12HR PRN PRN Reason: Saline Flush Last Admin: 05/28/19 09:24 Dose: 10 ml Sodium Chloride (Flush - Normal Saline) 10 ml IVF PRN PRN PRN Reason: Saline Flush Temazepam (Restoril) 15 mg PO HSPRN PRN PRN Reason: Insomnia Last Admin: 05/27/19 20:11 Dose: 15 mg Vital Signs & Weight: Vital Signs Temp Pulse Pulse Resp BP BP BP 05/28/19 11:00 97.7 F 85 16 127/62 05/28/19 09:15 85 149/70 H 05/28/19 07:47 97.5 F L 94 18 140/67 05/28/19 04:00 97.6 F 71 20 144/67 H Pulse Ox 05/28/19 11:00 98 05/28/19 09:15 05/28/19 07:47 93 L 05/28/19 04:00 95 Admit Weight 253 lb 11.2 oz Weight 247 lb 9 oz - Physical Exam General: alert & oriented x3 HEENT: mucus membranes moist Cardiac: regular rate and rhythm, S1/S2 Lungs: decreased breath sounds, wheezes Neuro: cranial nerve 2-12 intact Abdomen: unremarkable - Labs Result Diagrams: 05/29/19 04:26 05/29/19 04:26 Troponin/CKMB CK-MB (CK-2) 2.9 ng/mL (0-6.6) 05/22/19 23:26 Troponin I 0.622 ng/mL (< 0.028) H* 05/22/19 23:26 - Telemetry Sinus rhythms and dysrhythmias: sinus rhythm - Assessment/Plan Assessment/Plan: 1. Acute on Chronic Systolic HF - cont. BLE edema with Lasix 40mg IV BID; S/p Albumin IV yesterday; If no improvement with Albumin, then possible will start metolazone; will start Coreg 3.125mg BID from today, but must be very caution due to hx of Bradycardia; not on COLLIN/ARB due to hx of CKD; 2. KENZIE on CKD stage 4 - slightly worsened today; managed by Dr Mckenzie 3. HTN - will start Coreg 3.125mg BID for HTN and CHF management 4. 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 CAD with angioplasty in 1995 - 7. Hx of Bradycardia - HR has remained in SR with HR 70-80s. Wearing EVR for 30 days. 8. BLE edema - improving with Redd CHAUDHARY reviewed * Echo in 04/2019 with EF 45-50%, akinetic apex, midly dilated LA, mild ERV, mild-mod MR, mild , and mild TR Pt. seen and eval. by me. I agree with the A/P by the OPHTHALMOLOGIST. He still has lower extremity edema. Albumin given. Renal assisting with management. He denies cardiac complaints. Chest clear. RRR.
[2019-05-28] MEDS ORDERED: Carvedilol 3.125 MG TAB PO SCH ×2 (12:17→12:30)
[2019-05-28] MEDS: Acetaminophen 325 MG TAB PO PRN (14:53)
--- NOTE | 2019-05-28 15:27 | PDOC.HOSPP ---
- Subjective Encounter Date: 05/28/19 Encounter Time: 08:00 Subjective: Pt seen for followup re: acute hypoxic respiratory failure. Feels better. - Objective Vital Signs & Weight: Vital Signs (12 hours) Temp Pulse Pulse Pulse Resp BP BP 05/28/19 11:00 97.7 F 85 16 05/28/19 10:27 85 82 127/62 142/82 H 05/28/19 09:15 85 149/70 H 05/28/19 07:47 97.5 F L 94 18 05/28/19 04:00 97.6 F 71 20 BP BP Pulse Ox 05/28/19 11:00 127/62 98 05/28/19 10:27 05/28/19 09:15 05/28/19 07:47 140/67 93 L 05/28/19 04:00 144/67 H 95 Weight Admit Weight 253 lb 11.2 oz Weight 247 lb 9 oz I&O: 05/27/19 05/28/19 05/29/19 06:59 06:59 06:59 Intake Total 2810 1897 Output Total 2860 1060 Balance -50 837 Result Diagrams: 05/28/19 05:10 05/28/19 05:10 Additional Labs: Accuchecks 05/28/19 05/28/19 05/27/19 10:53 05:16 20:10 POC Glucose 223 H 180 H 233 H 05/27/19 05/27/19 16:39 10:36 POC Glucose 255 H 345 H Labs and MARs reviewed by me EKG Reviewed by me: Yes (Tele: NSR) Hospitalist ROS - Review of Systems Constitutional: denies: fever, chills, sweats, weakness, malaise Respiratory: reports: SOB with excertion Cardiovascular: denies: chest pain, palpitations, orthopnea, paroxysmal noc. dyspnea, edema, light headedness - Medication Medications: Active Medications Generic Name Dose Route Start Last Admin Trade Name Freq PRN Reason Stop Dose Admin Acetaminophen 650 mg 05/22/19 16:59 05/28/19 14:53 Tylenol PO 650 mg Q4H PRN Administration Headache/Fever/Mild Pain (1-3) Albuterol/Ipratropium 3 ml 05/24/19 21:44 05/26/19 19:21 Duoneb NEB 3 ml [id number] PRN Administration SOB &/or Wheezing Amlodipine Besylate 5 mg 05/24/19 09:00 05/28/19 09:15 Norvasc PO 5 mg DAILY DEWAYNE Administration Artificial Tears 2 drop 05/25/19 22:26 05/26/19 20:29 Tears Naturale EA EYE 2 drop Q4H PRN Administration Dry Eyes Atorvastatin Calcium 10 mg 05/23/19 21:00 05/27/19 20:11 Lipitor PO 10 mg HS DEWAYNE Administration Bisacodyl 10 mg 05/28/19 09:00 05/28/19 09:15 Dulcolax PO 10 mg DAILY DEWAYNE Administration Escitalopram Oxalate 10 mg 05/27/19 09:00 05/28/19 09:16 Lexapro PO 10 mg DAILY DEWAYNE Administration Famotidine 20 mg 05/25/19 21:00 05/27/19 20:11 Pepcid PO 20 mg QPM DEWAYNE Administration Furosemide 40 mg 05/23/19 06:00 05/28/19 14:50 Lasix SLOW IVP 40 mg 0600,1400 DEWAYNE Administration Hydralazine HCl 50 mg 05/23/19 06:00 05/28/19 12:06 Apresoline PO 50 mg Q6HR DEWAYNE Administration Ceftaroline Fosamil 300 mg/ 100 mls @ 100 mls/hr 05/23/19 21:00 05/28/19 10: 11 Sodium Chloride IVPB 100 mls Q12HR DEWAYNE Administration Insulin Human Lispro 0 units 05/22/19 17:02 05/28/19 12:12 Humalog SC 3 unit .MILD SLIDING SCALE PRN Administration Mild Correctional Scale Insulin Human Lispro 0 units 05/22/19 17:02 05/27/19 20:12 Humalog SC 2 unit .BEDTIME SLIDING SC PRN Administration Bedtime Correctional Scale Melatonin 3 mg 05/24/19 16:04 05/24/19 21:18 Melatonin PO 3 mg HSPRN PRN Administration Insomnia Ondansetron HCl 4 mg 05/28/19 11:44 05/28/19 12:06 Zofran IVP 4 mg Q6H PRN Administration Nausea/Vomiting Polyethylene Glycol 17 gm 05/27/19 09:00 05/28/19 09:16 Miralax PO 17 gm DAILY DEWAYNE Administration Saccharomyces Boulardii 250 mg 05/23/19 09:00 05/28/19 09:16 Florastor PO 250 mg DAILY DEWAYNE Administration Sodium Chloride 10 ml 05/22/19 16:59 05/28/19 09:24 Flush - Normal Saline IVF 10 ml Q12HR PRN Administration Saline Flush Temazepam 15 mg 05/25/19 22:26 05/27/19 20:11 Restoril PO 15 mg HSPRN PRN Administration Insomnia - Exam General Appearance: awake alert General - other findings: Obesity Eye: anicteric sclera ENT: normocephalic atraumatic, moist mucosa Neck: supple Heart: RRR, no rubs Respiratory: CTAB Gastrointestinal: soft, non-tender Extremities: 2+ LE edema Skin: no rashes Musculoskeletal: no muscle wasting Psychiatric: normal affect, normal behavior Hosp A/P (1) Acute respiratory failure with hypoxia Code(s): J96.01 - ACUTE RESPIRATORY FAILURE WITH HYPOXIA Status: Acute (2) Acute systolic CHF (congestive heart failure), NYHA class 3 Code(s): I50.21 - ACUTE SYSTOLIC (CONGESTIVE) HEART FAILURE Status: Acute (3) Diabetes mellitus Code(s): E11.9 - TYPE 2 DIABETES MELLITUS WITHOUT COMPLICATIONS Status: Chronic (4) Non-healing ulcer of left foot Code(s): L97.529 - NON-PRESSURE CHRONIC ULCER OTH PRT LEFT FOOT W UNSP SEVERITY Status: Chronic (5) HTN (hypertension) Code(s): I10 - ESSENTIAL (PRIMARY) HYPERTENSION Status: Chronic (6) Chronic kidney disease, stage 4 (severe) Code(s): N18.4 - CHRONIC KIDNEY DISEASE, STAGE 4 (SEVERE) Status: Chronic (7) Back pain Code(s): M54.9 - DORSALGIA, UNSPECIFIED Status: Resolved - Plan PT/OT Pt still needing supplemental oxygen. Continue IV furosemide. Continue ceftaroline. Continue accuchecks, insulin sliding scale. Continue Lexapro.
[2019-05-28] MEDS: Carvedilol 3.125 MG TAB PO SCH (17:36)
[2019-05-28] MEDS: Atorvastatin Calcium 10 MG TAB PO SCH (20:59)
[2019-05-28] MEDS: Famotidine 20 MG TAB PO SCH (20:59)
[2019-05-29] MEDS: hydrALAZINE 25 MG TAB PO SCH ×5 (00:02→23:24)
[2019-05-29 04:53] LABS: #Basophils 0.1 thou/uL (0.0-0.2); #Eosinphils 0.8 thou/uL (0.0-0.7); #Lymphocytes 0.8 thou/uL (1.20-3.40); #Monocytes 0.7 thou/uL (0.11-0.59); #Neutrophils 8.5 thou/uL (1.40-6.50); %Basophils 1.3 % (0.0-1.0); %Eosinophils 7.4 % (0.0-10.0); %Lymphocytes 6.9 % (21.0-51.0); %Monocytes 6.4 % (0.0-10.0); %Neutrophils 78.1 % (42.0-75.0); Hemoglobin 8.8 g/dL (14.0-18.0); Mean Corpuscular HGB CONC 32.7 g/dL (32.0-36.0); Mean Corpuscular Volume 88.6 fL (78.0-98.0); Mean Platelet Volume 8.8 fL (7.4-10.4); Platelet Count 163 thou/uL (130-400); RBC Distribution Width 13.1 % (11.5-14.5); Red Blood Cell (RBC) Count 3.04 mill/uL (4.70-6.10); White Blood Cell (WBC) Count 10.9 thou/uL (4.8-10.8)
[2019-05-29 05:12] LABS: Anion Gap 14 mmol/L (10-20); BUN (Urea Nitrogen) 84 mg/dL (8.4-25.7); Calc. Creatinine Clearance 41 mL/min (70-130); Calcium 9.5 mg/dL (7.8-10.44); Carbon Dioxide 25 mmol/L (23-31); Chloride 102 mmol/L (98-107); Estimated GFR-MDRD 23; Glucose 178 mg/dL (80-115); Potassium 4.6 mmol/L (3.5-5.1); Sodium 136 mmol/L (136-145)
[2019-05-29] MEDS: Furosemide 40 MG/4 ML VIAL SLOW IVP SCH (05:40)
--- NOTE | 2019-05-29 08:26 | PDOC.CPN ---
- Subjective Date: 05/29/19 Time: 08:30 Interval history: The pt seen and examined. No overnight events. No cardiac complaints. Strongly recommend to walk more - Objective Allergies/Adverse Reactions: Allergies Allergy/AdvReac Type Severity Reaction Status Date / Time No Known Drug Allergies Allergy Verified 05/01/19 22:59 Visit Medications: Current Medications Acetaminophen (Tylenol) 650 mg PO Q4H PRN PRN Reason: Headache/Fever/Mild Pain (1-3) Last Admin: 05/28/19 14:53 Dose: 650 mg Acetaminophen (Tylenol) 650 mg [place] Q4H PRN PRN Reason: Headache/Fever/Mild Pain (1-3) Albuterol/Ipratropium (Duoneb) 3 ml NEB [id number] PRN PRN Reason: SOB &/or Wheezing Last Admin: 05/26/19 19:21 Dose: 3 ml Amlodipine Besylate (Norvasc) 5 mg PO DAILY [facility] Last Admin: 05/28/19 09:15 Dose: 5 mg Artificial Tears (Tears Naturale) 2 drop EA EYE Q4H PRN PRN Reason: Dry Eyes Last Admin: 05/26/19 20:29 Dose: 2 drop Atorvastatin Calcium (Lipitor) 10 mg PO HS [facility] Last Admin: 05/28/19 20:59 Dose: 10 mg Bisacodyl (Dulcolax) 10 mg PO DAILY [facility] Last Admin: 05/28/19 09:15 Dose: 10 mg Carvedilol (Coreg) 3.125 mg PO BID-[facility] Last Admin: 05/28/19 17:36 Dose: 3.125 mg Clonidine (Catapres) 0.1 mg PO BID PRN PRN Reason: SBP Greater Than 180 Dextrose/Water (Dextrose 50%) 25 gm SLOW IVP PRN PRN PRN Reason: Hypoglycemia Escitalopram Oxalate (Lexapro) 10 mg PO DAILY [facility] Last Admin: 05/28/19 09:16 Dose: 10 mg Famotidine (Pepcid) 20 mg PO QPM [facility] Last Admin: 05/28/19 20:59 Dose: 20 mg Furosemide (Lasix) 40 mg SLOW IVP 0600,1400 [facility] Last Admin: 05/29/19 05:40 Dose: 40 mg Glucagon (Glucagon) 1 mg IM PRN PRN PRN Reason: Hypoglycemia Hydralazine HCl (Apresoline) 50 mg PO Q6HR [facility] Last Admin: 05/29/19 05:39 Dose: 50 mg Dextrose/Water (D5w) 1,000 mls @ 0 mls/hr IV .Q0M PRN PRN Reason: Hypoglycemia Ceftaroline Fosamil 300 mg/ (Sodium Chloride) 100 mls @ 100 mls/hr IVPB Q12HR [facility] Last Admin: 05/28/19 20:59 Dose: 100 mls Insulin Human Lispro (Humalog) 0 units SC .MILD SLIDING SCALE PRN PRN Reason: Mild Correctional Scale Last Admin: 05/28/19 17:36 Dose: 4 unit Insulin Human Lispro (Humalog) 0 units SC .BEDTIME SLIDING SC PRN PRN Reason: Bedtime Correctional Scale Last Admin: 05/28/19 20:59 Dose: 2 unit Melatonin (Melatonin) 3 mg PO HSPRN PRN PRN Reason: Insomnia Last Admin: 05/24/19 21:18 Dose: 3 mg Ondansetron HCl (Zofran) 4 mg IVP Q6H PRN PRN Reason: Nausea/Vomiting Last Admin: 05/28/19 12:06 Dose: 4 mg Polyethylene Glycol (Miralax) 17 gm PO DAILY [facility] Last Admin: 05/28/19 09:16 Dose: 17 gm Saccharomyces Boulardii (Florastor) 250 mg PO DAILY [facility] Last Admin: 05/28/19 09:16 Dose: 250 mg Sodium Chloride (Flush - Normal Saline) 10 ml IVF Q12HR PRN PRN Reason: Saline Flush Last Admin: 05/28/19 09:24 Dose: 10 ml Sodium Chloride (Flush - Normal Saline) 10 ml IVF PRN PRN PRN Reason: Saline Flush Temazepam (Restoril) 15 mg PO HSPRN PRN PRN Reason: Insomnia Last Admin: 05/27/19 20:11 Dose: 15 mg Vital Signs & Weight: Vital Signs Temp Pulse Resp BP BP Pulse Ox 05/29/19 07:50 97.7 F 74 16 139/66 96 05/29/19 03:15 97.8 F 68 16 144/68 H 94 L 05/29/19 00:02 66 05/29/19 00:00 66 18 134/66 94 L Admit Weight 253 lb 11.2 oz Weight 246 lb - Physical Exam General: alert & oriented x3 HEENT: mucus membranes moist Neck: supple neck Cardiac: regular rate and rhythm, S1/S2 Lungs: clear to auscultation, decreased breath sounds Neuro: cranial nerve 2-12 intact - Labs Result Diagrams: 05/29/19 04:26 05/29/19 04:26 Troponin/CKMB CK-MB (CK-2) 2.9 ng/mL (0-6.6) 05/22/19 23:26 Troponin I 0.622 ng/mL (< 0.028) H* 05/22/19 23:26 - Telemetry Sinus rhythms and dysrhythmias: sinus rhythm - Assessment/Plan Assessment/Plan: 1. Acute on Chronic Systolic HF - cont. BLE edema with Lasix 40mg IV BID; S/p Albumin IV yesterday; If no improvement with Albumin, then possible will start metolazone; On Coreg 3.125mg BID, but must be very caution due to hx of Bradycardia; not on COLLIN/ARB due to hx of CKD; 2. KENZIE on CKD stage 4 - slightly worsened today; managed by Dr Mckenzie 3. HTN - stable with Coreg 3.125mg BID for HTN and CHF management 4. 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 CAD with angioplasty in 1995 - 7. Hx of Bradycardia - HR has remained in SR with HR 70-80s. Wearing EVR for 30 days. 8. BLE edema - improving with TEDs MAR reviewed * Echo in 04/2019 with EF 45-50%, akinetic apex, midly dilated LA, mild ERV, mild-mod MR, mild , and mild TR Pt. seen and eval. by me. I agree with the A/P by the ACCESS CONTROL OFFICER.The edema has improved. Chest clear. RRR. Continue present management.geri
[2019-05-29] MEDS ORDERED: Furosemide 40 MG/4 ML VIAL SLOW IVP SCH (08:32)
[2019-05-29] MEDS: Escitalopram Oxalate 10 mg Tablet PO SCH (08:50)
[2019-05-29] MEDS: Saccharomyces boulardii 250 MG CAP PO SCH (08:50)
[2019-05-29] MEDS: Amlodipine 5 MG TAB PO SCH (08:50)
[2019-05-29] MEDS: Bisacodyl 5 MG TAB PO SCH (08:50)
[2019-05-29] MEDS: Carvedilol 3.125 MG TAB PO SCH ×2 (08:50→18:39)
[2019-05-29] MEDS: Furosemide 40 MG TAB PO SCH ×2 (08:51→14:49)
[2019-05-29] MEDS: Polyethylene Glycol 3350 17 GM Packet PO SCH (08:51)
[2019-05-29] MEDS: HumaLOG 300 UNITS/3 ML VIAL SC PRN ×4 (08:55→21:16)
--- NOTE | 2019-05-29 09:03 | PRG ---
DATE OF SERVICE: 05/29/2019 SERVICE: Renal Medicine. SUBJECTIVE: Mr. Carroll is a 69-year-old white male, admitted for shortness of breath from CHF. He has been diuresed. He still has persistent leg edema as well as occasional shortness of breath on exertion. He has acute kidney injury secondary to a presumed vancomycin-induced ATN. Furthermore, the patient has a left foot osteomyelitis, currently being treated by Dr. Pelaez with antibiotics. No other new complaints today. OBJECTIVE: VITAL SIGNS: Blood pressure 139/66, heart rate 74, respiratory rate 16, temperature 97.7, and pulse ox 96%. GENERAL: Noted to be awake, alert, comfortable, not in distress. SKIN: Adequate turgor. HEENT: He has a slightly pale conjunctivae. Anicteric sclerae. No neck mass. No carotid bruits. No JVD. CHEST: No deformities. LUNGS: Decreased breath sounds. HEART: Normal sinus rhythm. No murmurs. No gallops. No rubs. ABDOMEN: Globular, soft, and nontender. No masses. EXTREMITIES: Positive for edema. MEDICATIONS: Medications of May 29, 2019, reviewed. LABORATORY DATA: Laboratories of May 29, 2019: White count 10.9, hemoglobin 8.8, sodium 137, potassium 4.1, chloride 103, carbon dioxide 23, BUN 71, creatinine 2.68, glucose 202, and calcium 9.2. ASSESSMENT AND PLAN: 1. Acute kidney injury - secondary to nephrotoxic acute tubular necrosis. Stable. Continue to observe. So far, tolerating diuretics. No indication for any dialytic intervention. 2. Congestive heart failure/leg edema - we will add metolazone 2.5 mg tablet daily, to be given 30 minutes after his Lasix input. Please note, his Lasix has been changed to p.o. 3. Chronic osteomyelitis - left foot, on antibiotics. 4. The patient is wanting to go home soon. He was somewhat teary eyed. Continuing escitalopram with this patient. 5. Recheck basic metabolic panel and CBC in a.m. Job ID: [id number]
--- NOTE | 2019-05-29 10:49 | PDOC.HOSPP ---
- Subjective Encounter Date: 05/29/19 Encounter Time: 07:40 Subjective: Pt seen for followup re: acute hypoxic respiratory failure. States he feels better. Still needing supplemental oxygen. - Objective Vital Signs & Weight: Vital Signs (12 hours) Temp Pulse Resp BP BP Pulse Ox 05/29/19 07:50 97.7 F 74 16 139/66 96 05/29/19 03:15 97.8 F 68 16 144/68 H 94 L 05/29/19 00:02 66 05/29/19 00:00 66 18 134/66 94 L Weight Admit Weight 253 lb 11.2 oz Weight 246 lb I&O: 05/28/19 05/29/19 05/30/19 06:59 06:59 06:59 Intake Total 1897 820 Output Total 1060 1300 Balance 837 -480 Result Diagrams: 05/29/19 04:26 05/29/19 04:26 Additional Labs: Accuchecks 05/29/19 05/28/19 05/28/19 05:28 20:09 17:04 POC Glucose 195 H 220 H 265 H 05/28/19 10:53 POC Glucose 223 H Labs and MARs reviewed by me EKG Reviewed by me: Yes (Tele: NSR) Hospitalist ROS - Review of Systems Respiratory: reports: SOB with excertion. denies: cough, shortness of breath, pleuritic pain, wheezing Cardiovascular: reports: edema. denies: chest pain, palpitations, orthopnea, paroxysmal noc. dyspnea, light headedness - Medication Medications: Active Medications Generic Name Dose Route Start Last Admin Trade Name Freq PRN Reason Stop Dose Admin Acetaminophen 650 mg 05/22/19 16:59 05/28/19 14:53 Tylenol PO 650 mg Q4H PRN Administration Headache/Fever/Mild Pain (1-3) Albuterol/Ipratropium 3 ml 05/24/19 21:44 05/26/19 19:21 Duoneb NEB 3 ml [id number] PRN Administration SOB &/or Wheezing Amlodipine Besylate 5 mg 05/24/19 09:00 05/29/19 08:50 Norvasc PO 5 mg DAILY DEWAYNE Administration Artificial Tears 2 drop 05/25/19 22:26 05/26/19 20:29 Tears Naturale EA EYE 2 drop Q4H PRN Administration Dry Eyes Atorvastatin Calcium 10 mg 05/23/19 21:00 05/28/19 20:59 Lipitor PO 10 mg HS DEWAYNE Administration Bisacodyl 10 mg 05/28/19 09:00 05/29/19 08:50 Dulcolax PO 10 mg DAILY DEWAYNE Administration Carvedilol 3.125 mg 05/28/19 17:00 05/29/19 08:50 Coreg PO 3.125 mg BID-WM DEWAYNE Administration Escitalopram Oxalate 10 mg 05/27/19 09:00 05/29/19 08:50 Lexapro PO 10 mg DAILY DEWAYNE Administration Famotidine 20 mg 05/25/19 21:00 05/28/19 20:59 Pepcid PO 20 mg QPM DEWAYNE Administration Furosemide 40 mg 05/29/19 09:00 05/29/19 08:51 Lasix PO Not Given 0900,1400 [facility] Hydralazine HCl 50 mg 05/23/19 06:00 05/29/19 05:39 Apresoline PO 50 mg Q6HR DEWAYEN Administration Ceftaroline Fosamil 300 mg/ 100 mls @ 100 mls/hr 05/23/19 21:00 05/29/19 08: 50 Sodium Chloride IVPB 100 mls Q12HR DEWAYNE Administration Insulin Human Lispro 0 units 05/22/19 17:02 05/29/19 08:55 Humalog SC 2 unit .MILD SLIDING SCALE PRN Administration Mild Correctional Scale Insulin Human Lispro 0 units 05/22/19 17:02 05/28/19 20:59 Humalog SC 2 unit .BEDTIME SLIDING SC PRN Administration Bedtime Correctional Scale Melatonin 3 mg 05/24/19 16:04 05/24/19 21:18 Melatonin PO 3 mg HSPRN PRN Administration Insomnia Ondansetron HCl 4 mg 05/28/19 11:44 05/28/19 12:06 Zofran IVP 4 mg Q6H PRN Administration Nausea/Vomiting Polyethylene Glycol 17 gm 05/27/19 09:00 05/29/19 08:51 Miralax PO Not Given DAILY [facility] Saccharomyces Boulardii 250 mg 05/23/19 09:00 05/29/19 08:50 Florastor PO 250 mg DAILY DEWAYNE Administration Sodium Chloride 10 ml 05/22/19 16:59 05/29/19 08:52 Flush - Normal Saline IVF 10 ml Q12HR PRN Administration Saline Flush Temazepam 15 mg 05/25/19 22:26 05/27/19 20:11 Restoril PO 15 mg HSPRN PRN Administration Insomnia - Exam General - other findings: Obese Eye: anicteric sclera ENT: moist mucosa Neck: JVD Heart: RRR Respiratory: CTAB Extremities: 2+ LE edema Skin - other findings: wound as documented Psychiatric: normal affect, normal behavior Hosp A/P (1) Acute respiratory failure with hypoxia Code(s): J96.01 - ACUTE RESPIRATORY FAILURE WITH HYPOXIA Status: Acute (2) Acute systolic CHF (congestive heart failure), NYHA class 3 Code(s): I50.21 - ACUTE SYSTOLIC (CONGESTIVE) HEART FAILURE Status: Acute (3) Diabetes mellitus Code(s): E11.9 - TYPE 2 DIABETES MELLITUS WITHOUT COMPLICATIONS Status: Chronic (4) Non-healing ulcer of left foot Code(s): L97.529 - NON-PRESSURE CHRONIC ULCER OTH PRT LEFT FOOT W UNSP SEVERITY Status: Chronic (5) HTN (hypertension) Code(s): I10 - ESSENTIAL (PRIMARY) HYPERTENSION Status: Chronic (6) Chronic kidney disease, stage 4 (severe) Code(s): N18.4 - CHRONIC KIDNEY DISEASE, STAGE 4 (SEVERE) Status: Chronic (7) Back pain Code(s): M54.9 - DORSALGIA, UNSPECIFIED Status: Resolved - Plan continue antibiotics, out of bed/ambulate Pt still needing supplemental oxygen. Continue IV furosemide. Pt may need metolazone. Continue ceftaroline. Continue accuchecks, insulin sliding scale. Continue Lexapro. Mobilize pt.
[2019-05-29 14:57] VITALS: BMI 35.3
[2019-05-29] MEDS: Atorvastatin Calcium 10 MG TAB PO SCH (21:16)
[2019-05-29] MEDS: Famotidine 20 MG TAB PO SCH (21:16)
[2019-05-29] MEDS: Acetaminophen 325 MG TAB PO PRN (22:03)
[2019-05-30 05:14] LABS: #Basophils 0.1 thou/uL (0.0-0.2); #Eosinphils 0.8 thou/uL (0.0-0.7); #Lymphocytes 0.7 thou/uL (1.20-3.40); #Monocytes 0.7 thou/uL (0.11-0.59); #Neutrophils 8.4 thou/uL (1.40-6.50); %Eosinophils 7.1 % (0.0-10.0); %Lymphocytes 6.9 % (21.0-51.0); %Monocytes 6.8 % (0.0-10.0); %Neutrophils 78.2 % (42.0-75.0); Hemoglobin 8.8 g/dL (14.0-18.0); Mean Corpuscular HGB CONC 32.4 g/dL (32.0-36.0); Mean Corpuscular Hemoglobin 28.4 pg (27.0-31.0); Mean Corpuscular Volume 87.8 fL (78.0-98.0); Mean Platelet Volume 8.9 fL (7.4-10.4); Platelet Count 179 thou/uL (130-400); RBC Distribution Width 13.3 % (11.5-14.5); White Blood Cell (WBC) Count 10.7 thou/uL (4.8-10.8)
[2019-05-30 05:34] LABS: Anion Gap 13 mmol/L (10-20); BUN (Urea Nitrogen) 77 mg/dL (8.4-25.7); Calc. Creatinine Clearance 44 mL/min (70-130); Calcium 9.2 mg/dL (7.8-10.44); Carbon Dioxide 25 mmol/L (23-31); Chloride 102 mmol/L (98-107); Estimated GFR-MDRD 25; Glucose 196 mg/dL (80-115); Potassium 4.2 mmol/L (3.5-5.1); Sodium 136 mmol/L (136-145)
[2019-05-30] MEDS: hydrALAZINE 25 MG TAB PO SCH ×4 (05:44→23:10)
[2019-05-30] MEDS: Metolazone 2.5 MG TAB PO SCH (09:25)
[2019-05-30] MEDS: Amlodipine 5 MG TAB PO SCH (09:25)
[2019-05-30] MEDS: Furosemide 40 MG TAB PO SCH ×2 (09:25→13:34)
[2019-05-30] MEDS: Escitalopram Oxalate 10 mg Tablet PO SCH (09:25)
[2019-05-30] MEDS: Saccharomyces boulardii 250 MG CAP PO SCH (09:25)
[2019-05-30] MEDS: Carvedilol 3.125 MG TAB PO SCH ×2 (09:25→16:54)
[2019-05-30] MEDS: Polyethylene Glycol 3350 17 GM Packet PO SCH (09:26)
[2019-05-30] MEDS: Bisacodyl 5 MG TAB PO SCH (09:26)
--- NOTE | 2019-05-30 09:42 | PRG ---
DATE OF SERVICE: 05/30/2019 SUBJECTIVE: Mr. Carroll is a 69-year-old white male, followed up by the Renal Service secondary to an acute kidney injury from prolonged ATN. This was on a presumptive basis of drug-induced - vancomycin. Currently, renal function is holding steady. It is little improved today. We did increase his diuretics due to his CHF. Metolazone has been added to his current diuretic regimen. He continues to have his left foot osteomyelitis being treated with antibiotics. No other complaints. No chest pain or shortness of breath. OBJECTIVE: VITAL SIGNS: Blood pressure is 142/64, heart rate 67, respiratory rate 19, temperature 98, and pulse ox 93%. GENERAL: The patient is awake, alert, and comfortable, not in distress. SKIN: Adequate turgor. HEENT: Pinkish conjunctivae. Anicteric sclerae. NECK: No neck mass. No carotid bruits. No JVD. CHEST: No deformities. LUNGS: Clear breath sounds. HEART: Normal sinus rhythm. No murmurs. No gallops. No rubs. ABDOMEN: Globular, soft, and nontender. No masses. EXTREMITIES: Positive for edema. MEDICATIONS: Medications of May 30, 2019, reviewed. LABORATORY DATA: Laboratories of May 30, 2019; sodium 136, potassium 4.2, chloride 102, carbon dioxide 25, BUN 77, creatinine 2.55, glucose 196, calcium 9.2. White count 10.7 and hemoglobin 8.8. ASSESSMENT AND PLAN: 1. Acute kidney injury - secondary to presumed acute tubular necrosis - drug-induced secondary to the vancomycin, currently improving. Creatinine noted at 2.55. He is also tolerating the current diuretic regimen. 2. Congestive heart failure, clinically improved. Continue furosemide and metolazone. 3. Type 2 diabetes mellitus. Continue current diabetic management. 4. Borderline anemia. We will continue to observe p.r.n. blood transfusion. 5. Overall agree with current management. From a renal point of view, this patient can be discharged any time. Job ID: [id number]
[2019-05-30] MEDS: HumaLOG 300 UNITS/3 ML VIAL SC PRN ×2 (11:43→17:59)
--- NOTE | 2019-05-30 12:45 | PDOC.CPN ---
- Subjective Date: 05/30/19 Time: 08:30 Interval history: The pt seen and examined. No overnight events. No cardiac complaints. - Objective Allergies/Adverse Reactions: Allergies Allergy/AdvReac Type Severity Reaction Status Date / Time No Known Drug Allergies Allergy Verified 05/01/19 22:59 Visit Medications: Current Medications Acetaminophen (Tylenol) 650 mg PO Q4H PRN PRN Reason: Headache/Fever/Mild Pain (1-3) Last Admin: 05/29/19 22:03 Dose: 650 mg Acetaminophen (Tylenol) 650 mg [place] Q4H PRN PRN Reason: Headache/Fever/Mild Pain (1-3) Albuterol/Ipratropium (Duoneb) 3 ml NEB [id number] PRN PRN Reason: SOB &/or Wheezing Last Admin: 05/26/19 19:21 Dose: 3 ml Amlodipine Besylate (Norvasc) 5 mg PO DAILY [facility] Last Admin: 05/30/19 09:25 Dose: 5 mg Artificial Tears (Tears Naturale) 2 drop EA EYE Q4H PRN PRN Reason: Dry Eyes Last Admin: 05/26/19 20:29 Dose: 2 drop Atorvastatin Calcium (Lipitor) 10 mg PO HS [facility] Last Admin: 05/29/19 21:16 Dose: 10 mg Bisacodyl (Dulcolax) 10 mg PO DAILY [facility] Last Admin: 05/30/19 09:26 Dose: Not Given Carvedilol (Coreg) 3.125 mg PO BID-WM [facility] Last Admin: 05/30/19 09:25 Dose: 3.125 mg Clonidine (Catapres) 0.1 mg PO BID PRN PRN Reason: SBP Greater Than 180 Dextrose/Water (Dextrose 50%) 25 gm SLOW IVP PRN PRN PRN Reason: Hypoglycemia Escitalopram Oxalate (Lexapro) 10 mg PO DAILY [facility] Last Admin: 05/30/19 09:25 Dose: 10 mg Famotidine (Pepcid) 20 mg PO QPM [facility] Last Admin: 05/29/19 21:16 Dose: 20 mg Furosemide (Lasix) 40 mg PO 0900,1400 [facility] Last Admin: 05/30/19 09:25 Dose: 40 mg Glucagon (Glucagon) 1 mg IM PRN PRN PRN Reason: Hypoglycemia Hydralazine HCl (Apresoline) 50 mg PO Q6HR [facility] Last Admin: 05/30/19 11:46 Dose: 50 mg Dextrose/Water (D5w) 1,000 mls @ 0 mls/hr IV .Q0M PRN PRN Reason: Hypoglycemia Ceftaroline Fosamil 300 mg/ (Sodium Chloride) 100 mls @ 100 mls/hr IVPB Q12HR [facility] Last Admin: 05/30/19 09:25 Dose: 100 mls Insulin Human Lispro (Humalog) 0 units SC .MILD SLIDING SCALE PRN PRN Reason: Mild Correctional Scale Last Admin: 05/30/19 11:43 Dose: 3 unit Insulin Human Lispro (Humalog) 0 units SC .BEDTIME SLIDING SC PRN PRN Reason: Bedtime Correctional Scale Last Admin: 05/29/19 21:16 Dose: 2 unit Melatonin (Melatonin) 3 mg PO HSPRN PRN PRN Reason: Insomnia Last Admin: 05/24/19 21:18 Dose: 3 mg Metolazone (Zaroxolyn) 2.5 mg PO 0830 [facility] Last Admin: 05/30/19 09:25 Dose: 2.5 mg Ondansetron HCl (Zofran) 4 mg IVP Q6H PRN PRN Reason: Nausea/Vomiting Last Admin: 05/28/19 12:06 Dose: 4 mg Polyethylene Glycol (Miralax) 17 gm PO DAILY [facility] Last Admin: 05/30/19 09:26 Dose: Not Given Saccharomyces Boulardii (Florastor) 250 mg PO DAILY [facility] Last Admin: 05/30/19 09:25 Dose: 250 mg Sodium Chloride (Flush - Normal Saline) 10 ml IVF Q12HR PRN PRN Reason: Saline Flush Last Admin: 05/29/19 08:52 Dose: 10 ml Sodium Chloride (Flush - Normal Saline) 10 ml IVF PRN PRN PRN Reason: Saline Flush Temazepam (Restoril) 15 mg PO HSPRN PRN PRN Reason: Insomnia Last Admin: 05/27/19 20:11 Dose: 15 mg Vital Signs & Weight: Vital Signs Temp Pulse Resp BP BP Pulse Ox 05/30/19 12:00 98.4 F 69 16 137/74 92 L 05/30/19 11:46 71 137/74 05/30/19 09:25 71 143/64 H 05/30/19 09:23 97.5 F L 71 16 143/64 H 92 L 05/30/19 05:44 67 05/30/19 03:00 98 F 67 19 142/64 H 93 L Admit Weight 253 lb 11.2 oz Weight 245 lb 12.8 oz - Physical Exam General: alert & oriented x3 HEENT: mucus membranes moist Neck: supple neck Cardiac: regular rate and rhythm, S1/S2 Lungs: decreased breath sounds Neuro: cranial nerve 2-12 intact - Labs Result Diagrams: 05/30/19 04:48 05/30/19 04:48 Troponin/CKMB CK-MB (CK-2) 2.9 ng/mL (0-6.6) 05/22/19 23:26 Troponin I 0.622 ng/mL (< 0.028) H* 05/22/19 23:26 - Telemetry Sinus rhythms and dysrhythmias: sinus rhythm - Assessment/Plan Assessment/Plan: 1. Acute on Chronic Systolic HF - BLE edema has been improving slowly with Lasix 40mg PO BID and Metolazone; On Coreg 3.125mg BID, but must be very caution due to hx of Bradycardia; not on COLLIN/ARB due to hx of CKD; 2. KENZIE on CKD stage 4 - slightly better today; managed by Dr Mckenzie 3. HTN - stable with Coreg 3.125mg BID for HTN and CHF management 4. 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 CAD with angioplasty in 1995 - 7. Hx of Bradycardia - HR has remained in SR with HR 70-80s. Wearing EVR for 30 days. 8. BLE edema - improving with TEDs MAR reviewed * Echo in 04/2019 with EF 45-50%, akinetic apex, midly dilated LA, mild ERV, mild-mod MR, mild , and mild TR
--- NOTE | 2019-05-30 15:15 | PDOC.HOSPP ---
- Subjective Encounter Date: 05/30/19 Encounter Time: 08:00 Subjective: Pt seen for followup re: acute hypoxic respiratory failure. Feels better, slept well, denies any complaints. - Objective Vital Signs & Weight: Vital Signs (12 hours) Temp Pulse Resp BP BP Pulse Ox 05/30/19 12:00 98.4 F 69 16 137/74 92 L 05/30/19 11:46 71 137/74 05/30/19 09:25 71 143/64 H 05/30/19 09:23 97.5 F L 71 16 143/64 H 92 L 05/30/19 05:44 67 Weight Admit Weight 253 lb 11.2 oz Weight 245 lb 12.8 oz I&O: 05/29/19 05/30/19 05/31/19 06:59 06:59 06:59 Intake Total 820 820 240 Output Total 1300 2250 1700 Balance -335 -5866 -6330 Result Diagrams: 05/30/19 04:48 05/30/19 04:48 Additional Labs: Accuchecks 05/30/19 05/30/19 05/29/19 10:42 05:26 20:38 POC Glucose 224 H 206 H 250 H 05/29/19 16:49 POC Glucose 220 H Labs and MARs reviewed by me EKG Reviewed by me: Yes (Tele: NSR) Hospitalist ROS - Review of Systems Cardiovascular: denies: chest pain, palpitations, orthopnea, paroxysmal noc. dyspnea, edema, light headedness, other Gastrointestinal: denies: nausea, vomiting, abdominal pain, diarrhea, constipation, melena, hematochezia - Medication Medications: Active Medications Generic Name Dose Route Start Last Admin Trade Name Freq PRN Reason Stop Dose Admin Acetaminophen 650 mg 05/22/19 16:59 05/29/19 22:03 Tylenol PO 650 mg Q4H PRN Administration Headache/Fever/Mild Pain (1-3) Albuterol/Ipratropium 3 ml 05/24/19 21:44 05/26/19 19:21 Duoneb NEB 3 ml [id number] PRN Administration SOB &/or Wheezing Amlodipine Besylate 5 mg 05/24/19 09:00 05/30/19 09:25 Norvasc PO 5 mg DAILY DEWAYNE Administration Artificial Tears 2 drop 05/25/19 22:26 05/26/19 20:29 Tears Naturale EA EYE 2 drop Q4H PRN Administration Dry Eyes Atorvastatin Calcium 10 mg 05/23/19 21:00 05/29/19 21:16 Lipitor PO 10 mg HS DEWAYNE Administration Bisacodyl 10 mg 05/28/19 09:00 05/30/19 09:26 Dulcolax PO Not Given DAILY DEWAYNE Carvedilol 3.125 mg 05/28/19 17:00 05/30/19 09:25 Coreg PO 3.125 mg BID-WM DEWAYNE Administration Escitalopram Oxalate 10 mg 05/27/19 09:00 05/30/19 09:25 Lexapro PO 10 mg DAILY DEWAYNE Administration Famotidine 20 mg 05/25/19 21:00 05/29/19 21:16 Pepcid PO 20 mg QPM DEWAYNE Administration Furosemide 40 mg 05/29/19 09:00 05/30/19 13:34 Lasix PO 40 mg 0900,1400 DEWAYNE Administration Hydralazine HCl 50 mg 05/23/19 06:00 05/30/19 11:46 Apresoline PO 50 mg Q6HR DEWAYNE Administration Ceftaroline Fosamil 300 mg/ 100 mls @ 100 mls/hr 05/23/19 21:00 05/30/19 09: 25 Sodium Chloride IVPB 100 mls Q12HR DEWAYNE Administration Insulin Human Lispro 0 units 05/22/19 17:02 05/30/19 11:43 Humalog SC 3 unit .MILD SLIDING SCALE PRN Administration Mild Correctional Scale Insulin Human Lispro 0 units 05/22/19 17:02 05/29/19 21:16 Humalog SC 2 unit .BEDTIME SLIDING SC PRN Administration Bedtime Correctional Scale Melatonin 3 mg 05/24/19 16:04 05/24/19 21:18 Melatonin PO 3 mg HSPRN PRN Administration Insomnia Metolazone 2.5 mg 05/30/19 08:30 05/30/19 09:25 Zaroxolyn PO 2.5 mg 0830 DEWAYNE Administration Ondansetron HCl 4 mg 05/28/19 11:44 05/28/19 12:06 Zofran IVP 4 mg Q6H PRN Administration Nausea/Vomiting Polyethylene Glycol 17 gm 05/27/19 09:00 05/30/19 09:26 Miralax PO Not Given DAILY DEWAYNE Saccharomyces Boulardii 250 mg 05/23/19 09:00 05/30/19 09:25 Florastor PO 250 mg DAILY DEWAYNE Administration Sodium Chloride 10 ml 05/22/19 16:59 05/29/19 08:52 Flush - Normal Saline IVF 10 ml Q12HR PRN Administration Saline Flush Temazepam 15 mg 05/25/19 22:26 05/27/19 20:11 Restoril PO 15 mg HSPRN PRN Administration Insomnia - Exam General - other findings: Obese Eye: anicteric sclera ENT: moist mucosa Neck: supple Heart: RRR Respiratory: CTAB, no rales Gastrointestinal: soft, non-tender Extremities: 2+ LE edema Musculoskeletal: normal tone Psychiatric: normal affect, normal behavior Hosp A/P (1) Acute respiratory failure with hypoxia Code(s): J96.01 - ACUTE RESPIRATORY FAILURE WITH HYPOXIA Status: Acute (2) Acute systolic CHF (congestive heart failure), NYHA class 3 Code(s): I50.21 - ACUTE SYSTOLIC (CONGESTIVE) HEART FAILURE Status: Acute (3) Diabetes mellitus Code(s): E11.9 - TYPE 2 DIABETES MELLITUS WITHOUT COMPLICATIONS Status: Chronic (4) Non-healing ulcer of left foot Code(s): L97.529 - NON-PRESSURE CHRONIC ULCER OTH PRT LEFT FOOT W UNSP SEVERITY Status: Chronic (5) HTN (hypertension) Code(s): I10 - ESSENTIAL (PRIMARY) HYPERTENSION Status: Chronic (6) Chronic kidney disease, stage 4 (severe) Code(s): N18.4 - CHRONIC KIDNEY DISEASE, STAGE 4 (SEVERE) Status: Chronic (7) Back pain Code(s): M54.9 - DORSALGIA, UNSPECIFIED Status: Resolved - Plan Pt still needing supplemental oxygen. Continue IV furosemide andmetolazone. Continue ceftaroline. Switch to home antibiotics (as per previous admission) at time of discharge to home. Continue accuchecks, insulin sliding scale. Continue Lexapro, started during this hospitalization. Mobilize pt.
[2019-05-30] MEDS: Famotidine 20 MG TAB PO SCH (22:03)
[2019-05-30] MEDS: Atorvastatin Calcium 10 MG TAB PO SCH (22:03)
[2019-05-30] MEDS: Temazepam 15 MG CAP PO PRN (22:04)
[2019-05-31 04:31] LABS: #Basophils 0.1 thou/uL (0.0-0.2); #Eosinphils 0.8 thou/uL (0.0-0.7); #Lymphocytes 0.7 thou/uL (1.20-3.40); #Monocytes 0.7 thou/uL (0.11-0.59); #Neutrophils 9.1 thou/uL (1.40-6.50); %Basophils 1.3 % (0.0-1.0); %Eosinophils 7.4 % (0.0-10.0); %Lymphocytes 6.5 % (21.0-51.0); %Neutrophils 78.9 % (42.0-75.0); Hemoglobin 8.8 g/dL (14.0-18.0); Mean Corpuscular HGB CONC 33.1 g/dL (32.0-36.0); Mean Corpuscular Hemoglobin 28.9 pg (27.0-31.0); Mean Corpuscular Volume 87.5 fL (78.0-98.0); Mean Platelet Volume 8.7 fL (7.4-10.4); Platelet Count 193 thou/uL (130-400); RBC Distribution Width 13.2 % (11.5-14.5); Red Blood Cell (RBC) Count 3.03 mill/uL (4.70-6.10); White Blood Cell (WBC) Count 11.5 thou/uL (4.8-10.8)
[2019-05-31 04:54] LABS: Anion Gap 12 mmol/L (10-20); BUN (Urea Nitrogen) 72 mg/dL (8.4-25.7); Calc. Creatinine Clearance 48 mL/min (70-130); Calcium 9.3 mg/dL (7.8-10.44); Carbon Dioxide 28 mmol/L (23-31); Chloride 102 mmol/L (98-107); Estimated GFR-MDRD 28; Glucose 216 mg/dL (80-115); Sodium 138 mmol/L (136-145)
[2019-05-31] MEDS: hydrALAZINE 25 MG TAB PO SCH ×2 (05:28→12:32)
[2019-05-31] MEDS: Amlodipine 5 MG TAB PO SCH (09:12)
[2019-05-31] MEDS: Escitalopram Oxalate 10 mg Tablet PO SCH (09:12)
[2019-05-31] MEDS: Saccharomyces boulardii 250 MG CAP PO SCH (09:12)
[2019-05-31] MEDS: Carvedilol 3.125 MG TAB PO SCH (09:12)
[2019-05-31] MEDS: Polyethylene Glycol 3350 17 GM Packet PO SCH (09:12)
[2019-05-31] MEDS: Furosemide 40 MG TAB PO SCH ×2 (09:12→16:00)
[2019-05-31] MEDS: Metolazone 2.5 MG TAB PO SCH (09:12)
[2019-05-31] MEDS: Bisacodyl 5 MG TAB PO SCH (09:13)
--- NOTE | 2019-05-31 10:43 | PRG ---
DATE OF SERVICE: 05/31/2019 SUBJECTIVE: Mr. Carroll is a 69-year-old white male, followed up by the Renal Service for his acute kidney injury secondary to ischemic ATN. Renal function has been slowly improving. He was also initially admitted for CHF. He is currently being diuresed. Recently, we added metolazone. He is currently on furosemide plus metolazone. Breathing is better. Leg edema is also improving. OBJECTIVE: VITAL SIGNS: Blood pressure 151/69, heart rate 76, respiratory rate 20, temperature 97.9, and pulse ox 94%. GENERAL: Noted to be awake, alert, comfortable, not in distress. SKIN: Adequate turgor. HEENT: He has a slightly pale conjunctivae. Anicteric sclerae. NECK: No neck mass. No carotid bruits. No JVD. LUNGS: Clear breath sounds. HEART: Normal sinus rhythm. No murmur. No gallops. No rubs. ABDOMEN: Globular, soft, nontender. No masses. EXTREMITIES: Positive for edema. Positive for left leg dressing. MEDICATIONS: Of May 31, 2019, were reviewed. LABORATORY DATA: On May 31, 2019: White count 11.5, hemoglobin 8.8. Sodium 138, potassium 4, chloride 102, carbon dioxide 28, BUN 72, creatinine 2.34, glucose 216, calcium 9.3. ASSESSMENT AND PLAN: 1. Acute kidney injury secondary to nephrotoxic ATN from vancomycin. Slowly improving renal function. Creatinine noted at 2.34. GFR is 28 mL/minute. Continue current management. Continue supportive care. There is no indication for any dialytic intervention. 2. Left leg osteomyelitis, on antibiotics. ID is following. 3. Congestive heart failure, clinically much improved. Continue current diuretic regimen. The patient is currently on metolazone and furosemide. Job ID: [id number]
[2019-05-31 11:27] VITALS: TEMP 97.8
[2019-05-31] MEDS: HumaLOG 300 UNITS/3 ML VIAL SC PRN (12:32)
[2019-05-31 12:36] VITALS: BP 136/66
--- NOTE | 2019-05-31 16:04 | PDOC.CPN ---
- Subjective Date: 05/31/19 Time: 16:05 Interval history: The pt seen and examined. No overnight events. No cardiac complaints. - Objective Allergies/Adverse Reactions: Allergies Allergy/AdvReac Type Severity Reaction Status Date / Time No Known Drug Allergies Allergy Verified 05/01/19 22:59 Vital Signs & Weight: Vital Signs Temp Pulse Pulse Pulse Resp BP BP 05/31/19 12:32 74 136/66 05/31/19 11:00 97.8 F 74 18 05/31/19 09:12 76 151/69 H 05/31/19 08:55 97.9 F 76 20 05/31/19 08:42 79 79 130/60 05/31/19 05:28 72 139/61 BP BP BP Pulse Ox 05/31/19 12:32 05/31/19 11:00 136/66 92 L 05/31/19 09:12 05/31/19 08:55 151/69 H 94 L 05/31/19 08:42 162/70 H 05/31/19 05:28 Admit Weight 253 lb 11.2 oz Weight 243 lb 4.8 oz - Physical Exam General: alert & oriented x3 HEENT: mucus membranes moist Neck: supple neck Cardiac: regular rate and rhythm, S1/S2 Lungs: clear to auscultation Abdomen: unremarkable Extremities: 2+ LE edema - Labs Result Diagrams: 05/31/19 03:54 05/31/19 03:54 Troponin/CKMB CK-MB (CK-2) 2.9 ng/mL (0-6.6) 05/22/19 23:26 Troponin I 0.622 ng/mL (< 0.028) H* 05/22/19 23:26 - Telemetry Sinus rhythms and dysrhythmias: sinus rhythm - Assessment/Plan Assessment/Plan: 1. Acute on Chronic Systolic HF - BLE edema has been improving slowly with Lasix 40mg PO BID and Metolazone; On Coreg 3.125mg BID, but must be very caution due to hx of Bradycardia; not on COLLIN/ARB due to hx of CKD; 2. KENZIE on CKD stage 4 - slightly better today; managed by Dr Mckenzie 3. HTN - stable with Coreg 3.125mg BID for HTN and CHF management 4. 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 CAD with angioplasty in 1995 - 7. Hx of Bradycardia - HR has remained in SR with HR 70-80s. Wearing EVR for 30 days. 8. BLE edema - improving with TEDs MAR reviewed * Echo in 04/2019 with EF 45-50%, akinetic apex, midly dilated LA, mild ERV, mild-mod MR, mild , and mild TR * From Cardiac standpoint, the pt is stable to d/c home. The pt will f/u with Dr Sow' office within 2 wks.
--- NOTE | 2019-06-01 02:48 | DIS ---
DATE OF ADMISSION: 05/22/2019 DATE OF DISCHARGE: 05/31/2019 DISCHARGING PHYSICIAN: Dr. Kamran Jaeger. PRIMARY CARE PHYSICIAN: Dr. Macedo. ADMISSION DIAGNOSES: 1. Congestive heart failure exacerbation. 2. Leukocytosis. 3. Chronic kidney disease stage 4. 4. Essential hypertension. 5. Hyperlipidemia. 6. Diabetes mellitus type 2. CONSULTATIONS ON THE CASE: 1. Dr. Mynor Mckenzie. 2. Dr. Chica Andrews. 3. Dr. Baylee Samson, Cardiology. DISCHARGE DIAGNOSES: 1. Congestive heart failure with ejection fraction of 45% to 50%. Patient currently being discharged with diuretics, Coreg. 2. Acute renal failure with history of chronic kidney disease stage 4. 3. Diabetes mellitus type 2. 4. Nonhealing left foot ulcer. 5. Chronic kidney disease stage 4. 6. Chronic back pain. HOSPITAL COURSE: This is a very pleasant 69-year-old gentleman who was admitted to the hospitalist services for hypoxemic respiratory failure with history of congestive heart failure exacerbation. Subsequently, he was referred to both Renal and Cardiology services, who advised the diuretic therapy along with close monitoring of the patient's renal parameters with an initial suspicion of acute tubular necrosis, toxic in nature likely secondary to history of vancomycin use. The patient was closely monitored. Echocardiogram showed an ejection of 45% to 50%, so patient being diagnosed with systolic congestive heart failure with exacerbation and fluid overload. Fluid restriction was obtained along with optimizing patient's renal parameters. Eventual staging was around CKD stage 4. Patient at this point in time was extensively educated regarding followup care as an outpatient with Cardiology Services as well as Renal Services. Diuretic dosing was optimized and for patient's history of chronic osteomyelitis, he is currently being followed up his primary infectious disease, Dr. Pelaez, and is on antibiotic therapy for the same. Patient, over the course, optimized and fluid overload was also treated. As patient obtained moderate symptom treatment, patient was cleared for discharge by Cardiology and Renal Services. Patient at this point of time also has been advised to follow up with Infectious Disease physician for this chronic antibiotic management as prescribed. Patient was hemodynamically optimized on discharge. DISPOSITION: Discharged home. PHYSICAL EXAMINATION: CVS: S1 and S2. CHEST: Bilateral air entry present. ABDOMEN: Soft. EXTREMITIES: No cyanosis. ALLERGIES: NO KNOWN DRUG ALLERGIES. ACTIVITY: As tolerated with fall precautions. DIET: 1800-kilocalorie ADA diet along with fluid restriction to 2000 mL per day. DISCHARGE MEDICATIONS: 1. Norvasc 5 mg daily. 2. Artificial Tears as needed. 3. Atorvastatin 10 mg daily, but this has been replaced by the patient's home statins. 4. Coreg 3.125 mg b.i.d. 5. Escitalopram oxalate 10 mg daily. 6. Lasix 40 mg daily. 7. Hydralazine 50 mg q.6 schedule. 8. Ceftaroline antibiotic per primary ID. 9. Melatonin 3 mg p.r.n. for insomnia. 10. Zaroxolyn 2.5 mg daily. 11. Probiotics daily. 12. Temazepam has been discontinued though. 13. Daptomycin [address] Pelaez' office, Mondays, Wednesdays, and Fridays. DISCHARGE PLAN: The patient has been advised and educated about the diagnosis, treatment, and followup. The patient has been advised about followup care with primary ID as well as Nephrology Services as scheduled along with instrument technologist. The patient was hemodynamically optimized and discharged. The whole discharge process, including discharge coordination, took me more than 35 minutes. ADVANCED DIRECTIVES: Full code. Job ID: [id number]
--- NOTE | 2019-06-03 04:41 | PQF ---
SAP Bale Opener Crystal Reports Winform ViewerJOSE RAMON [place] MD [id number] CLINICAL DOCUMENTATION CLARIFICATION FORM: POST DISCHARGE Addendum to original discharge summary date: ____ Late entry note date: __ DATE: 06/03/2019 ATTN:MINDA BEACH MD Please exercise your independent, professional judgment in responding to the clarification form. Clinical indicators are provided on the bottom of this form for your review Please check appropriate box(s) to clarify if the following diagnosis has been ruled in or ruled out: ___NSTEMI (CDI/Coding list diagnosis here) [x ] Ruled in diagnosis [x ] Continue to treat [ ] Resolved [ ] Ruled out diagnosis [ ] Cannot rule out diagnosis [ ] Other diagnosis [ ] Unable to determine In addition, please specify: Present on Admission (POA): [ ] Yes [ ] No [ x ] Unable to determine For continuity of documentation, please document condition throughout progress notes and discharge summary. Thank You. CLINICAL INDICATORS - SIGNS / SYMPTOMS / LABS NSTEMI - Documented in Emergency notes pg#8 Elevated Troponin 0.622 on 05/22 and 0.436 on 05/22 - Documented in Laboratory Increased troponin ,related ro underlying coronary artery disease - Documented in Consult note on 05/23 by Darryl Coto hypoxemic respiratory failure failure with CHF exacerbation - Documented in DS on 05/31 by Heide Andrew RISK FACTORS ATN - Documented in DS on 05/31 by Heide Andrew Acute on chronic CHF - Documented in DS on 05/31 by Heide Andrew CKD 4 - Documented in DS on 05/31 by Heide Andrew TREATMENTS Consultation Catarino Carlos SAP Bale Opener Crystal Reports Winform Viewer (This form is maintained as a part of the permanent medical record) 2014 [employer]. All Rights Reserved [email or web address] [not provided] MTDD
--- NOTE | 2019-06-07 19:49 | EKG ---
Test Reason : Blood Pressure : / mmHG Vent. Rate : 089 BPM Atrial Rate : 089 BPM P-R Int : 184 ms QRS Dur : 124 ms QT Int : 376 ms P-R-T Axes : 030 074 028 degrees QTc Int : 457 ms Sinus rhythm with Premature atrial complexes with Abberant conduction Possible Left atrial enlargement Non-specific intra-ventricular conduction delay Nonspecific ST abnormality Abnormal ECG Confirmed by ED BATES D.O. ([id number]), script editor MANNY DAY ([id number]) on 06/07/2019 7:48:49 PM Referred By: Confirmed By:ED BATES D.O.
--- NOTE | 2019-06-10 05:55 | PQF ---
SAP Cocoa Mill Operator Crystal Reports JOSE RAMON Key MINDA BEACH MD [id number] [id number] CLINICAL DOCUMENTATION CLARIFICATION FORM: POST DISCHARGE Addendum to original discharge summary date: 06/14/19 Late entry note date: __ DATE: 06/10/2019 ATTN:MINDA BEACH MD Please exercise your independent, professional judgment in responding to the clarification form. Clinical indicators are provided on the bottom of this form for your review Kindly Provide whether drug induced KENZIE is due to overdose or adverse effect Please check appropriate box(s): [ ] Drug induced KENZIE is due to overdose [ x ] Drug induced KENZIE is due to Adverse effect [ ] Other diagnosis [ ] Unable to determine In addition, please specify: Present on Admission (POA): [ x ] Yes [ ] No [ ] Unable to determine For continuity of documentation, please document condition throughout progress notes and discharge summary. Thank You. CLINICAL INDICATORS - SIGNS / SYMPTOMS / LABS KENZIE -2/2ATN-drug induced - Documented in PNs on 05/28 by MINDA BEACH MD Creatinine was noted at 2.69 today, which is slightly improved from yesterday value of 2.73 - Documented in PNs on 05/28 by MINDA BEACH MD has acute kidney injury 2/2 a presumed vancomycin-induced ATN - Documented in PNs on 05/29 by MINDA BEACH MD KENZIE-2/2 nephrotoxic ATN - Documented in PNs on 05/29 by MINDA BEACH MD suspicion for ATN,toxic in nature likely 2/2 history of vancomycin use - Documented in DS on 05/31 by Ernesto Andrew RISK FACTORS ATN Acute on Chronic CHF - Documented in DS on 05/31 by Ernesto Andrew CKD 4 TREATMENTS: Consultation Continue supportive care - Documented in PNs on 05/28 by MINDA BEACH MD We will recheck metabolic panel and CBC in A.M Continue to observe - Documented in PNs on 05/29 by MINDA BEACH MD (This form is maintained as a part of the permanent medical record) 2014 [employer]. All Rights Reserved [email or web address] [not provided] MTDD
== END 2019-05-31 15:50 | disposition home or self-care (01) | DRG 682 ==
LOC: ERS 15:11 → 2NO 20:21
PROVIDERS: ADMIT Internal Medicine; ATTEND Internal Medicine
DX: N17.0 Acute kidney failure with tubular necrosis (principal); J96.01 Acute respiratory failure with hypoxia; I50.23 Acute on chronic systolic (congestive) heart failure; I21.4 Non-ST elevation (NSTEMI) myocardial infarction; I13.0 Hypertensive heart and chronic kidney disease with heart failure and stage 1 through stage 4 chronic kidney disease, or unspecified chronic kidney disease; M86.8X7 Other osteomyelitis, ankle and foot; N18.4 Chronic kidney disease, stage 4 (severe); E11.22 Type 2 diabetes mellitus with diabetic chronic kidney disease; I25.10 Atherosclerotic heart disease of native coronary artery without angina pectoris; E11.21 Type 2 diabetes mellitus with diabetic nephropathy; E11.621 Type 2 diabetes mellitus with foot ulcer; L97.529 Non-pressure chronic ulcer of other part of left foot with unspecified severity; G60.0 Hereditary motor and sensory neuropathy; E11.69 Type 2 diabetes mellitus with other specified complication; D72.829 Elevated white blood cell count, unspecified; G89.29 Other chronic pain; N14.2 Nephropathy induced by unspecified drug, medicament or biological substance; T36.8X5A Adverse effect of other systemic antibiotics, initial encounter; E66.9 Obesity, unspecified; Z87.891 Personal history of nicotine dependence; Z79.899 Other long term (current) drug therapy; Z68.34 Body mass index [BMI] 34.0-34.9, adult; E11.51 Type 2 diabetes mellitus with diabetic peripheral angiopathy without gangrene
CPT/HCPCS: 36415; 36416; 71045; 72072; 72100; 80048; 80053; 82553; 83605; 83735; 83880; 84145; 84484; 85025; 87040; 93005; 93798; 93970; 94640; 96372; 96374; 96375; J0712; J1650; J1940; J2270; J2405; J3490; J7620; P9047; S0028

== ENCOUNTER 2019-06-06 12:20 | Day surgery (SDC) | payer MEDICARE ==
[~2019-06-06 12:20] MED LIST changes: +DAPTOMYCIN SLOW IVP SCH; -Heparin 1,000 UNITS/ML VIAL ONE
[2019-06-06 12:50] VITALS: BP 124/60; TEMP 97.8
== END 2019-06-06 21:24 | disposition home or self-care (01) ==
LOC: ONC/OP 12:20
PROVIDERS: ATTEND Internal Medicine Infectious Disease
DX: M86.08 Acute hematogenous osteomyelitis, other sites (principal)
CPT/HCPCS: 96374; J0878

== ENCOUNTER 2019-06-11 15:00 | Outpatient (CLI) | payer MEDICARE ==
--- NOTE | 2019-06-11 11:42 | PRG ---
DATE OF SERVICE: 06/11/2019 HISTORY: Mr. Gavino Carroll is a very pleasant 69-year-old gentleman, who presents to the wound center for evaluation of an ulceration of the plantar surface of the left midfoot. The patient is presently receiving IV antibiotics as per Dr. Denis Pelaez for left foot osteomyelitis. The patient is also receiving dressing changes of Medihoney with the assistance of home health. The patient states that after admission to the hospital for treatment of his left plantar ulceration, he required readmission for heart failure. During the patient's hospital stay for heart failure, negative pressure therapy was discontinued. The patient is utilizing an offloading boot on the left. The patient has no other complaints today. He denies any fever or chills. PHYSICAL EXAMINATION: VITAL SIGNS: Temperature 97.7, pulse 71, respirations 19, and blood pressure 120/57. Accu-Chek 107. EXTREMITIES: An ulceration of the plantar surface of the left mid foot is present, which measures approximately 1.7 x 2.0 cm. The dimensions of the wound at the time of the patient's visit on 04/23/2019 were approximately 3.0 x 2.0 cm. Granulation tissue albeit dusky is present within the wound margins. Necrotic and nonviable tissue present within the wound margins was debrided with an excisional full-thickness debridement with the use of a curette. No purulent drainage is associated with the wound. No erythema of the skin surrounding the wound is present. No maceration of the skin of the periwound is noted. A dorsalis pedis pulse is palpable on the left. No significant edema of the left foot is appreciated on exam today. ASSESSMENT AND PLAN: 1. Plantar ulceration of left midfoot as described above. Dressing changes of Promogran will be initiated today. ABDs, Kerlix, and an Lonny bandage will be utilized as secondary dressings. These dressing changes are to be performed 3 times per week after cleansing and irrigation with the assistance of home health. As stated above, the patient is receiving IV antibiotics as per Infectious Diseases. I will see Mr. Carroll again in 1 week. At this time, the patient will also be seen by the wireless sales consultant for evaluation for an adjustment of his offloading boot to provide for optimal offloading of the plantar ulceration over the mid foot. The patient understands and is in agreement with the preceding treatment plan. He states he will return to clinic in one week from today. 2. Diabetes mellitus. The patient's Accu-Chek in clinic today is 107. The patient has been told that for optimal wound healing, his blood glucoses should remain below 150. 3. Hypertension. 4. Left Charcot's arthropathy. Job ID: [id number]
[2019-06-11] MEDS ORDERED: Lidocaine 2% PF 100 mg/5 ml Syringe ONE (17:04)
[2019-06-11] MEDS ORDERED: Sodium Chloride 0.9% 15 ML NEB ONE (17:04)
== END 2019-06-11 15:01 | disposition home or self-care (01) ==
LOC: WCC 15:00
PROVIDERS: ATTEND Family Medicine
DX: E11.621 Type 2 diabetes mellitus with foot ulcer (principal); L97.429 Non-pressure chronic ulcer of left heel and midfoot with unspecified severity; I10 Essential (primary) hypertension; M14.672 Charcot's joint, left ankle and foot
CPT/HCPCS: A4218; J2001

== ENCOUNTER 2019-06-18 15:43 | Outpatient (CLI) | payer MEDICARE ==
--- NOTE | 2019-06-18 15:02 | PRG ---
DATE OF SERVICE: 06/18/2019 HISTORY: Mr. Gavino Carroll is a very pleasant 69-year-old gentleman, who presents to the Wound Center for evaluation of an ulceration of the plantar surface of the left midfoot. The patient is currently receiving IV antibiotics as per Dr. Denis Pelaez, for left foot osteomyelitis. The patient is also receiving dressing changes of Promogran with the assistance of Home Health. The patient previously stated that after admission to the hospital for treatment of his left plantar ulceration, he required readmission for heart failure. Apparently during the patient's hospital stay for heart failure, negative pressure therapy was discontinued. The patient is presently utilizing an offloading boot on the left. The patient has no other complaints today. He denies any fever or chills. PHYSICAL EXAMINATION: VITAL SIGNS: Pulse 70, respirations 20, and blood pressure 110/54. EXTREMITIES: An ulceration of the plantar surface of the left mid foot is present, which measures approximately 1.8 x 2.0 cm. The dimensions of the wound at the time of the patient's visit on 06/11/2019 were approximately 1.7 x 2.0 cm. Granulation tissue is present within the wound margins. Necrotic and nonviable tissue present within the wound margins was debrided with an excisional full-thickness debridement with the use of a curette. Undermining and desiccated tissue at the periphery of the wound were eliminated with the use of scissors. Post debridement measurements were approximately 1.9 x 2.3 cm. No purulent drainage is associated with the wound. No erythema of the skin surrounding the wound is present. No maceration of the skin of the periwound is noted. A dorsalis pedis pulse is palpable on the left. Edema of the left foot is appreciated on exam today. LABORATORY DATA: Accu-Chek 117. ASSESSMENT AND PLAN: 1. Plantar ulceration of left midfoot as described above. Dressing changes of Promogran will be continued 3 times per week after cleansing and irrigation with the assistance of Home Health. ABDs, Kerlix, and an Lonny bandage will be continued as secondary dressings. As stated above, the patient is receiving IV antibiotics as per Infectious Diseases. Arrangements will be made for negative pressure therapy with dressing changes of the wound VAC 3 times per week after cleansing and irrigation with the assistance of Home Health. Promogran will be continued to the wound bed once negative pressure therapy is initiated after the wound VAC becomes available. I will see Mr. Carroll again in 1 week. The patient has been seen by the printing press machinist today for an adjustment of his offloading boot to provide for optimal offloading of the plantar ulceration over the mid foot. The patient has also been given a prescription for 0.5 inch Plastazote with pressure relief as per the printing press machinist. 2. Diabetes mellitus. The patient's Accu-Chek in clinic today is 117. The patient has been reminded that for optimal wound healing his blood glucoses should remain below 150. 3. Hypertension. 4. Left Charcot's arthropathy. Job ID: [id number]
[~2019-06-18 15:43] MED LIST changes: -DAPTOMYCIN SLOW IVP SCH; +Lidocaine 2% PF 100 mg/5 ml Syringe ONE; +Sodium Chloride 0.9% 15 ML NEB ONE
== END 2019-06-18 15:44 | disposition home or self-care (01) ==
LOC: WCC 15:43
PROVIDERS: ATTEND Family Medicine
DX: E11.621 Type 2 diabetes mellitus with foot ulcer (principal); L97.529 Non-pressure chronic ulcer of other part of left foot with unspecified severity; I10 Essential (primary) hypertension; E11.610 Type 2 diabetes mellitus with diabetic neuropathic arthropathy
CPT/HCPCS: A4218; J2001

== ENCOUNTER 2019-06-25 09:29 | Outpatient (CLI) | payer MEDICARE ==
--- NOTE | 2019-06-25 10:12 | PRG ---
DATE OF SERVICE: 06/25/2019 HISTORY: Mr. Gavino Carroll is a very pleasant 69-year-old gentleman, who presents to [facility] for evaluation of an ulceration of the plantar surface of the left midfoot. The patient states that he has completed the prescribed course of IV antibiotics as per Dr. Denis Pelaez for left foot osteomyelitis. The patient states that he will begin receiving negative pressure therapy with dressing changes of the wound VAC with the assistance of Home Health tomorrow. The patient previously stated that after admission to the hospital for treatment of his left plantar ulceration, he required readmission for heart failure. Apparently during the patient's hospital stay for heart failure, negative pressure therapy was discontinued. Since the patient's last visit to the Wound Center, Mr. Carroll has been receiving dressing changes of Promogran with the assistance of Home Health. The patient is currently utilizing an offloading boot on the left. The patient has no other complaints today. He denies any fever or chills. PHYSICAL EXAMINATION: VITAL SIGNS: Temperature 97.6, pulse 64, respirations 18, and blood pressure 136/63. Accu-Chek 106. EXTREMITIES: An ulceration of the plantar surface of the left mid foot is present, which measures approximately 2.0 x 2.3 cm. The dimensions of the wound at the time of the patient's visit on 06/18/2019 post-debridement were approximately 1.9 x 2.3 cm. Granulation tissue is present within the wound margins. Necrotic and nonviable tissue present within the wound margins was debrided with an excisional full-thickness debridement with the use of a curette. Undermining and desiccated tissue at the periphery of the wound were eliminated with the use of scissors. Necrotic tissue within the wound margins was excised also with the use of scissors. No purulent drainage is associated with the wound. No erythema of the skin surrounding the wound is present. No maceration of the skin of the periwound is noted. ASSESSMENT AND PLAN: 1. Plantar ulceration of left midfoot as described above. Negative pressure therapy with dressing changes of the wound VAC with the assistance of Home Health will be initiated tomorrow. The patient will be receiving dressing changes of the wound VAC 3 times per week. As stated above, the patient has completed a course of IV antibiotics as per Infectious Diseases. The patient states that he is now taking p.o. antibiotics as per Infectious Diseases. Promogran will be applied to the wound bed today. The patient has also been given a prescription for diabetic shoes with inserts. Mr. Carroll states that he will contact the Wound Center in order to schedule a followup appointment. He is to continue to utilize his offloading boot on the left. The patient understands and is in agreement with the preceding treatment plan. 2. Diabetes mellitus. The patient's Accu-Chek in clinic today is 106. The patient has been reminded that for optimal wound healing, his blood glucoses should remain below 150. 3. Hypertension. 4. Left Charcot's arthropathy. Job ID: [id number]
[2019-06-25] MEDS ORDERED: Lidocaine 2% PF 100 mg/5 ml Syringe ONE (16:59)
[2019-06-25] MEDS ORDERED: Sodium Chloride 0.9% 15 ML NEB ONE (16:59)
== END 2019-06-25 09:30 | disposition home or self-care (01) ==
LOC: WCC 09:29
PROVIDERS: ATTEND Family Medicine
DX: E11.621 Type 2 diabetes mellitus with foot ulcer (principal); L97.429 Non-pressure chronic ulcer of left heel and midfoot with unspecified severity; I10 Essential (primary) hypertension; E11.610 Type 2 diabetes mellitus with diabetic neuropathic arthropathy
CPT/HCPCS: A4218; J2001